=== PATIENT | male | born 1990 | race African-American/Black ===

== ENCOUNTER 2022-05-27 10:41 | Emergency (ER) | payer BC, SELFPAY ==
[2022-05-27] MEDS ORDERED: ONDANSETRON 4 MG/2 ML VIAL ONE (11:16)
[2022-05-27 11:17] LABS: Absolute Lymphocytes (CBC) 2.5 K/uL (0.7-4.9); Hematocrit 49.4 % (39.6-49.0); Lymphocytes % 18.9 % (15.3-44.8); RBC Red Blood Cell Count 5.43 M/uL (4.33-5.43)
[2022-05-27] MEDS ORDERED: INSULIN -REGULAR HUMAN 50 UNIT/0.5 ML ML ONE (11:17)
[2022-05-27] MEDS ORDERED: NA CHLORIDE 0.9% 1,000 ML ONE ×2 (11:17→12:35)
[2022-05-27 11:35] LABS: Albumin 4.3 g/dL (3.4-5.0); Bilirubin Total 1.4 mg/dL (0.2-1.0); Potassium 3.5 mmol/L (3.5-5.1); Protein, Total 8.5 g/dL (6.4-8.2)
[2022-05-27 14:23] LABS: Urine Blood Trace-intact (Negative); Urine Glucose 2+ (Negative); Urine Protein 2+ (Negative); Urine Specific Gravity >=1.030 (1.005-1.030); Urine pH 6.5 (5.0-7.0)
[2022-05-27 16:17] LABS: Potassium 3.6 mmol/L (3.5-5.1)
--- NOTE | 2022-05-27 16:41 | EDPHYS ---
Physician Documentation [facility] Name: Cecile Miranda Age: 32 yrs Sex: Male : 1990 Arrival Date: 05/27/2022 Time: 10:41 Bed 18 Private MD: ED Physician Sanju Zelaya HPI: 05/27 10:53 This 32 yrs old Black Male presents to ER via Ambulatory with complaints of Vomiting, jmm High Blood Sugar. 10:53 The patient presents to the emergency department with nausea, vomiting. Onset: The jmm symptoms/episode began/occurred gradually, 3 day(s) ago. Is a 32-year-old male with history of diabetes mellitus that presents emerged part with complaints of nausea and vomiting beginning approximately 3 days ago. Patient states he has had difficulty keeping his blood sugar under control due to inability to swallow pills. Denies any fever, abdominal pain, diarrhea.. Historical: - Allergies: 11:03 No Known Allergies; aa5 - PMHx: 11:03 Diabetes mellitus; aa5 - Immunization history:: Adult Immunizations unknown. - Social history:: Smoking status: Patient denies any tobacco usage or history of. ROS: 10:53 Constitutional: Negative for fever, chills, and weight loss, Cardiovascular: Negative jmm for chest pain, palpitations, and edema, Respiratory: Negative for shortness of breath, cough, wheezing, and pleuritic chest pain. 10:53 Abdomen/GI: Positive for nausea and vomiting. 10:53 All other systems are negative. Exam: 10:53 Constitutional: This is a well developed, well nourished patient who is awake, alert, jmm and in no acute distress. Head/Face: atraumatic. Eyes: EOMI, no conjunctival erythema appreciated ENT: Moist Mucus Membranes Neck: Trachea midline, Supple Chest/axilla: Normal chest wall appearance and motion. Cardiovascular: Regular rate and rhythm. No edema appreciated Respiratory: Normal respirations, no respiratory distress appreciated Abdomen/GI: Non distended Back: Normal ROM Skin: General appearance color normal MS/ Extremity: Moves all extremities, no obvious deformities appreciated, no edema noted to the lower extremities Neuro: Awake and alert Psych: Behavior is normal, Mood is normal, Patient is cooperative and pleasant Vital Signs: 10:52 BP 122 / 72; Pulse 86; Resp 16 S; Temp 98.0(TE); Pulse Ox 97% on R/A; aa5 11:45 BP 135 / 95; Pulse 68; Pulse Ox 96% on R/A; ap3 12:30 BP 123 / 87; Pulse 64; Resp 18; Pulse Ox 95% on R/A; kr3 13:30 BP 112 / 77; Pulse 64; Resp 18; Pulse Ox 98% on R/A; kr3 14:30 BP 107 / 75; Pulse 55; Resp 18; Pulse Ox 98% on R/A; kr3 15:30 BP 121 / 57; Pulse 71; Resp 18; Pulse Ox 95% on R/A; kr3 16:30 BP 129 / 81; Pulse 68; Resp 18; Pulse Ox 97% on R/A; kr3 MDM: 10:53 Patient medically screened. [facility] 16:35 Data reviewed: vital signs, nurses notes. [facility] 16:37 Counseling: I had a detailed discussion with the patient and/or guardian regarding: the [facility] historical points, exam findings, and any diagnostic results supporting the discharge/admit diagnosis. 18:17 I considered the following discharge prescriptions or medication management in the [facility] emergency department Medications were administered in the Emergency Department. See MAR. Historians other than the Patient:. Care significantly affected by the following chronic conditions: Diabetes. Counseling: I had a detailed discussion with the patient and/or guardian regarding: lab results, the need for outpatient follow up, to return to the emergency department if symptoms worsen or persist or if there are any questions or concerns that arise at home. ED course: Patient given insulin and IV fluids in the ED. Patient states feeling much better. Patient was advised to establish self with her primary care provider and otherwise given strict return precautions. Patient understood and agrees plan of care. 05/27 11:03 Order name: CBC with Diff [facility] 05/27 11:03 Order name: CMP [facility] 05/27 11:12 Order name: Glucose, Ancillary Testing; Complete Time: 11: [facility] 05/27 11:19 Order name: CBC with Automated Diff; Complete Time: 11: [facility] 05/27 11:35 Order name: Comprehensive Metabolic Panel; Complete Time: 11:38 [facility] 05/27 13:14 Order name: BMP: Repeat after IVF [facility] 05/27 11:03 Order name: Saline Lock; Complete Time: 11:06 [facility] 05/27 11:39 Order name: Urine Dipstick-Ancillary (obtain specimen); Complete Time: 14:25 [facility] 05/27 14:23 Order name: Urine Dipstick-Ancillary; Complete Time: 14:33 [facility] 05/27 16:23 Order name: Basic Metabolic Panel; Complete Time: 16:28 EDMS Administered Medications: 11:19 Drug: NS 0.9% 1000 ml Route: IV; Rate: 1 bolus; Site: right antecubital; ap3 16:57 Follow up: Response: No adverse reaction; IV Status: Completed infusion; IV Intake: kr3 1000ml 11:19 Drug: Zofran (Ondansetron) 4 mg Route: IVP; Site: right antecubital; ap3 16:57 Follow up: Response: No adverse reaction 3 11:30 Drug: Insulin Regular Human 10 units {Co-Signature: shasta1 (Loly Darling RN).} Route: ap3 IVP; Site: right antecubital; 16:57 Follow up: Response: No adverse reaction 3 12:33 Drug: NS 0.9% 1000 ml Route: IV; Rate: 1 bolus; Site: right antecubital; kr3 16:56 Follow up: Response: No adverse reaction; IV Status: Completed infusion; IV Intake: kr3 1000ml Disposition Summary: 05/27/22 16:40 Discharge Ordered Location: Home [facility] Condition: Stable [facility] Diagnosis - Hyperglycemia, unspecified [facility] Followup: [facility] - With: Private Physician - When: 2 - 3 days - Reason: Recheck today's complaints, Continuance of care, Re-evaluation by your physician Discharge Instructions: - Discharge Summary Sheet [facility] - Hyperglycemia [facility] Forms: - Medication Reconciliation Form [facility] - Thank You Letter [facility] - Antibiotic Education [facility] - Prescription Opioid Use [facility] - Work release form kr3 Prescriptions: - ondansetron 4 mg Oral tablet,disintegrating - place 1 tablet by TRANSLINGUAL route every 4-6 hours As needed; 20 tablet; [facility] Refills: 0, Product Selection Permitted - Metformin 500 mg Oral Tablet - take 1 tablet by ORAL route once daily for 7 days Then take 1 tablet with [facility] morning meals AND evening meals; 21 tablet; Refills: 0, Product Selection Permitted Addendum: 05/28/2022 19:53 Co-signature as Attending Physician, Sanju Zelaya MD I reviewed the patient's care r n provided by the Advanced Practice Provider and agree with the diagnosis and treatment plan. Signatures: Dispatcher [employer] Margarito Ramirez PA PA jmm Nieto, Roman, MD MD rn Calderon, Audri RN RN aa5 Sandra Nieto RN RN ap3 Elda Alicea RN RN kr3 Loly Darling RN ld1
--- NOTE | 2022-05-27 16:41 | ER ---
Nurse's Notes [facility] Name: Cecile Miranda Age: 32 yrs Sex: Male : 1990 Arrival Date: 05/27/2022 Time: 10:41 Bed 18 Private MD: Diagnosis: Hyperglycemia, unspecified Presentation: 05/27 10:52 Acuity: CARLOS 2 aa5 10:52 Chief complaint: Patient states: vomiting and "unable to keep anything down" x 3 days. aa5 Coronavirus screen: At this time, the client does not indicate any symptoms associated with coronavirus-19. Ebola Screen: Patient denies travel to an Ebola-affected area in the 21 days before illness onset. Initial Sepsis Screen: Does the patient meet any 2 criteria? No. Patient's initial sepsis screen is negative. Does the patient have a suspected source of infection? No. Patient's initial sepsis screen is negative. Risk Assessment: Do you want to hurt yourself or someone else? Patient reports no desire to harm self or others. Onset of symptoms was May 2022. 10:52 Method Of Arrival: Ambulatory aa5 Triage Assessment: 11:45 General: Appears uncomfortable, Behavior is cooperative. Pain: Denies pain. Neuro: ap3 Level of Consciousness is awake, alert, obeys commands, Oriented to person, place, time, situation. Cardiovascular: Patient's skin is warm and dry. Respiratory: Airway is patent Respiratory effort is even, unlabored, Respiratory pattern is regular, symmetrical. GI: Reports nausea, vomiting. Historical: - Allergies: 11:03 No Known Allergies; aa5 - PMHx: 11:03 Diabetes mellitus; aa5 - Immunization history:: Adult Immunizations unknown. - Social history:: Smoking status: Patient denies any tobacco usage or history of. Screenin:45 [facility] ED Fall Risk Assessment (Adult) History of falling in the last 3 months, ap3 including since admission No falls in past 3 months (0 pts). Abuse screen: Denies threats or abuse. Nutritional screening: No deficits noted. Tuberculosis screening: No symptoms or risk factors identified. Assessment: 12:15 General: Appears in no apparent distress. comfortable, Behavior is calm, cooperative, kr3 appropriate for age. Pain: Denies pain. Neuro: Level of Consciousness is awake, alert, obeys commands, Oriented to person, place, time, situation. Cardiovascular: Patient's skin is warm and dry. Respiratory: Airway is patent Respiratory effort is even, unlabored. : No signs and/or symptoms were reported regarding the genitourinary system. EENT: No signs and/or symptoms were reported regarding the EENT system. Derm: No signs and/or symptoms reported regarding the dermatologic system. Musculoskeletal: No signs and/or symptoms reported regarding the musculoskeletal system. 13:30 Reassessment: Patient and/or family updated on plan of care and expected duration. Pain kr3 level reassessed. Patient is alert, oriented x 3, equal unlabored respirations, skin warm/dry/pink. 14:30 Reassessment: Patient and/or family updated on plan of care and expected duration. Pain kr3 level reassessed. Patient is alert, oriented x 3, equal unlabored respirations, skin warm/dry/pink. 15:30 Reassessment: Patient appears in no apparent distress at this time. Patient and/or kr3 family updated on plan of care and expected duration. Pain level reassessed. Patient is alert, oriented x 3, equal unlabored respirations, skin warm/dry/pink. 16:30 Reassessment: Patient appears in no apparent distress at this time. Patient and/or kr3 family updated on plan of care and expected duration. Pain level reassessed. Patient is alert, oriented x 3, equal unlabored respirations, skin warm/dry/pink. Vital Signs: 10:52 BP 122 / 72; Pulse 86; Resp 16 S; Temp 98.0(TE); Pulse Ox 97% on R/A; aa5 11:45 BP 135 / 95; Pulse 68; Pulse Ox 96% on R/A; ap3 12:30 BP 123 / 87; Pulse 64; Resp 18; Pulse Ox 95% on R/A; kr3 13:30 BP 112 / 77; Pulse 64; Resp 18; Pulse Ox 98% on R/A; kr3 14:30 BP 107 / 75; Pulse 55; Resp 18; Pulse Ox 98% on R/A; kr3 15:30 BP 121 / 57; Pulse 71; Resp 18; Pulse Ox 95% on R/A; kr3 16:30 BP 129 / 81; Pulse 68; Resp 18; Pulse Ox 97% on R/A; kr3 ED Course: 10:41 Patient arrived in ED. rg4 10:42 Margarito Starks PA is PHCP. jmm 10:42 Sanju Zelaya MD is Attending Physician. jmm 10:52 Arm band placed on. aa5 11:02 Triage completed. aa5 11:06 Snadra Nieto, SALMA is Primary Nurse. ap3 11:13 CMP Sent. ap3 11:13 CBC with Diff Sent. ap3 11:46 Patient has correct armband on for positive identification. Bed in low position. Call ap3 light in reach. Side rails up X 1. Pulse ox on. NIBP on. Door closed. Noise minimized. Warm blanket given. 16:57 BMP: Repeat after IVF Sent. kr3 16:57 No provider procedures requiring assistance completed. IV discontinued, intact, kr3 bleeding controlled, No redness/swelling at site. Pressure dressing applied. Administered Medications: 11:19 Drug: NS 0.9% 1000 ml Route: IV; Rate: 1 bolus; Site: right antecubital; ap3 16:57 Follow up: Response: No adverse reaction; IV Status: Completed infusion; IV Intake: kr3 1000ml 11:19 Drug: Zofran (Ondansetron) 4 mg Route: IVP; Site: right antecubital; ap3 16:57 Follow up: Response: No adverse reaction kr3 11:30 Drug: Insulin Regular Human 10 units {Co-Signature: ld1 (Loly Darling RN).} Route: ap3 IVP; Site: right antecubital; 16:57 Follow up: Response: No adverse reaction kr3 12:33 Drug: NS 0.9% 1000 ml Route: IV; Rate: 1 bolus; Site: right antecubital; kr3 16:56 Follow up: Response: No adverse reaction; IV Status: Completed infusion; IV Intake: kr3 1000ml Medication: 11:46 VIS not applicable for this client. ap3 Intake: 16:56 IV: 1000ml; Total: 1000ml. kr3 16:57 IV: 1000ml; Total: 2000ml. kr3 Outcome: 16:40 Discharge ordered by . jmm 16:56 Patient left the ED. kr3 16:58 Discharged to home ambulatory. kr3 16:58 Condition: stable 16:58 Discharge instructions given to patient, Instructed on discharge instructions, follow up and referral plans. medication usage, Demonstrated understanding of instructions, follow-up care, medications, Prescriptions given X 2. Signatures: Margarito Starks PA PA jmm Calderon, Audri, RN RN [email or web address] Annie Lim4 Sandra Nieto RN RN ap3 Elda Alicea RN RN kr3 Loly Darling RN ld1 Corrections: (The following items were deleted from the chart) 16:42 16:42 Reassessment: Patient appears in no apparent distress at this time. Patient kr3 and/or family updated on plan of care and expected duration. Pain level reassessed. Patient is alert, oriented x 3, equal unlabored respirations, skin warm/dry/pink. kr3
[2022-05-27 17:09] VITALS: TEMP 98
[2022-05-27 17:16] VITALS: BP 129/81; O2SAT 97
== END 2022-05-27 16:56 | disposition home or self-care (01) ==
LOC: ER 10:41
DX: E11.65 Type 2 diabetes mellitus with hyperglycemia (principal)
CPT/HCPCS: 36415; 80048; 80053; 81003; 82947; 85025; J1815; J2405; J7030

== ENCOUNTER 2022-05-31 20:58 | Inpatient (IN) | payer SELFPAY ==
[2022-05-31] MEDS ORDERED: NA CHLORIDE 0.9% 0 ML ONE (21:49)
[2022-05-31 22:15] LABS: Absolute Lymphocytes (CBC) 2.4 K/uL (0.7-4.9); Hematocrit 53.5 % (39.6-49.0); Lymphocytes % 23.4 % (15.3-44.8); MCV 88.9 fL (80-100); RBC Red Blood Cell Count 6.02 M/uL (4.33-5.43)
[2022-05-31 22:40] LABS: ALT/SGPT 18 U/L (16-61); AST/SGOT 8 U/L (15-37); Alkaline Phosphatase 92 U/L (45-117); BUN Blood Urea Nitrogen 28 mg/dL (7-18); Bicarbonate 26 mmol/L (21-32); Glomerular Filtration Rate 85 ml/min (=/>90); Glucose Level 325 mg/dL (74-106); Potassium 3.3 mmol/L (3.5-5.1); Protein, Total 8.2 g/dL (6.4-8.2); Sodium Level 127 mmol/L (136-145)
[2022-05-31] MEDS ORDERED: NA CHLORIDE 0.9% 1,000 ML ONE (23:07)
[2022-05-31 23:10] LABS: SARS-COV-2 RT PCR NEGATIVE (NEGATIVE)
[2022-05-31] MEDS ORDERED: NS KCL 20MEQ 1,000 ML IV ONE (23:17)
--- NOTE | 2022-05-31 23:35 | ER ---
Nurse's Notes [facility] Name: Cecile Miranda Age: 32 yrs Sex: Male : 1990 Arrival Date: 05/31/2022 Time: 21:01 Bed 19 Private MD: Diagnosis: Diabetes mellitus due to underlying condition with ketoacidosis without coma Presentation: 05/31 21:21 Acuity: CARLOS 3 ll3 21:21 Chief complaint: Patient states: C/o N/V and high blood sugar since last Thursday, ll3 states BG was [employer]. Coronavirus screen: Vaccine status: Patient reports being unvaccinated. nausea, vomiting. Ebola Screen: No symptoms or risks identified at this time. Initial Sepsis Screen: Does the patient meet any 2 criteria? No. Patient's initial sepsis screen is negative. Does the patient have a suspected source of infection? No. Patient's initial sepsis screen is negative. Risk Assessment: Do you want to hurt yourself or someone else? Patient reports no desire to harm self or others. Onset of symptoms was May 24, 2022. Care prior to arrival: Medication(s) given: zofran. 21:21 Method Of Arrival: Wheelchair ll3 Triage Assessment: 06/01 00:00 General: Appears. ha1 Historical: - Allergies: 05/31 21:21 No Known Allergies; ll3 - Home Meds: 21:21 None [Active]; ll3 - PMHx: 21:21 diabetes mellitus; ll3 - PSHx: 21:21 None; ll3 - Immunization history:: Client reports having NOT received the Covid vaccine. - Social history:: Smoking status: Patient denies any tobacco usage or history of. Screenin:14 [facility] ED Fall Risk Assessment (Adult) History of falling in the last 3 months, ha1 including since admission No falls in past 3 months (0 pts) Confusion or Disorientation No (0 pts) Intoxicated or Sedated No (0 pts) Impaired Gait No (0 pts) Mobility Assist Device Used No (0 pt) Altered Elimination No (0 pt). 22:43 Abuse screen: Denies threats or abuse. Denies injuries from another. Nutritional ha1 screening: No deficits noted. Tuberculosis screening: No symptoms or risk factors identified. Assessment: 21:14 General: Appears uncomfortable, Behavior is calm, cooperative. Pain: Complains of pain ha1 in abdomen Pain does not radiate. Pain at worst was 9 out of 10 on a pain scale. Quality of pain is described as crampy. Neuro: Level of Consciousness is awake, alert, obeys commands, Oriented to person, place, time, situation. Cardiovascular: Patient's skin is warm and dry. Respiratory: Airway is patent Respiratory effort is even, unlabored, Respiratory pattern is regular, symmetrical. GI: Abdomen is flat, non-distended, Bowel sounds present X 4 quads. Reports lower abdominal pain, nausea, vomiting. 22:00 Reassessment: Patient and/or family updated on plan of care and expected duration. Pain ha1 level reassessed. Patient is alert, oriented x 3, equal unlabored respirations, skin warm/dry/pink. 22:40 Reassessment: Patient and/or family updated on plan of care and expected duration. Pain ha1 level reassessed. Patient is alert, oriented x 3, equal unlabored respirations, skin warm/dry/pink. Patient states feeling better. Patient states symptoms have improved. 23:40 Reassessment: Patient and/or family updated on plan of care and expected duration. Pain ha1 level reassessed. Patient is alert, oriented x 3, equal unlabored respirations, skin warm/dry/pink. Vital Signs: 21:21 BP 141 / 95; Pulse 71; Resp 18; Temp 98.7(O); Pulse Ox 97% on R/A; Weight 90.72 kg (R); ll3 Height 5 ft. 8 in. (172.72 cm); Pain 0/10; 22:00 BP 123 / 90; Pulse 72; Resp 15; Pulse Ox 100% ; ha1 22:40 BP 133 / 80; Pulse 60; Resp 16 S; Pulse Ox 100% on R/A; ha1 23:57 BP 138 / 103; Pulse 74; Resp 18 S; Temp 98.4; Pulse Ox 100% on R/A; ha1 21:21 Body Mass Index 30.41 (90.72 kg, 172.72 cm) ll3 ED Course: 21:01 Patient arrived in ED. ja2 21:09 Keila Colon FNP-C [facility]. snw 21:09 Grupo Benavides MD is Attending Physician. snw 21:21 Arm band placed on Patient placed in an exam room, on a stretcher, on pulse oximetry. ll3 21:21 Allergy band placed. Placed in gown. Bed in low position. Call light in reach. Side ha1 rails up X 1. 21:36 Triage completed. ll3 21:39 Carole Kim RN is Primary Nurse. ha1 21:50 Missed attempt(s): 20 gauge in right antecubital area. ha1 22:00 No provider procedures requiring assistance completed. Inserted saline lock: 22 gauge ha1 in left wrist, using aseptic technique. 23:34 Lemuel Burkett MD is Hospitalizing Provider. snw 23:42 Easton Duarte is Hospitalizing Provider. sb4 06/01 00:20 Patient admitted, IV remains in place. ha1 Administered Medications: 05/31 22:15 Drug: NS 0.9% 1000 ml Route: IV; Rate: 1 bolus; Site: left forearm; ha1 23:04 CANCELLED (Physician Discretion): NS 0.9% 1000 ml IV at 1 bolus Per protocol; 1000 mL snw bolus 23:15 Drug: NS 0.9% with KCl 20 mEq/L 1000 ml Route: IV; Rate: 999 ml/hr; Site: left forearm; ha1 23:50 Drug: Insulin Regular Human 5 units {Co-Signature: eh3 (Emperatriz Alonso RN).} Route: IVP; ha1 Site: left forearm; Medication: 06/01 00:21 VIS not applicable for this client. ha1 Outcome: 05/31 23:35 Decision to Hospitalize by Provider. snw 06/01 00:20 Admitted to ICU accompanied by nurse, room 7, with chart, Report called to SALMA Stewart ha1 Condition: stable 01:00 Patient left the ED. ha1 Signatures: Keila Colon, RADHA-C RESIDENTIAL PEST CONTROL TECHNICIAN-Halima Vargas Lynsea RN RN 3 Carole Kim RN RN [email or web address] Rebecca Negron, PAEduard PAEduard 4 Emperatriz Alonso RN eh3 Corrections: (The following items were deleted from the chart) 05/31 21:37 21:34 Chief complaint: Patient states: C/o N/V and high blood sugar since last ll3 Thursday, states BG was [employer] ll3 21:37 21:34 Coronavirus screen: Vaccine status: Patient reports being unvaccinated. nausea, ll3 vomiting. ll3 21:37 21:34 Ebola Screen: No symptoms or risks identified at this time. ll3 ll3 21:37 21:34 Initial Sepsis Screen: Does the patient meet any 2 criteria? No. Patient's ll3 initial sepsis screen is negative. Does the patient have a suspected source of infection? No. Patient's initial sepsis screen is negative. ll3 21:37 21:34 Risk Assessment: Do you want to hurt yourself or someone else? Patient reports no ll3 desire to harm self or others. ll3 21:37 21:34 Onset of symptoms was May 24, 2022 ll3 ll3 21:37 21:34 Care prior to arrival: Medication(s) given: zofran ll3 ll3 21:37 21:34 Method Of Arrival: Wheelchair ll3 ll3 21:37 21:34 BP 141 / 95; Pulse 71bpm; Resp 18bpm; Pulse Ox 97% RA; Temp 98.7F Oral; 90.72 kg ll3 Reported; Height 5 ft. 8 in.; BMI: 30.4; Pain 0/10; ll3 21:37 21:34 Acuity: CARLOS 3 ll3 ll3 06/01 00:04 05/31 22:40 Reassessment: Patient and/or family updated on plan of care and expected ha1 duration. Pain level reassessed. Patient is alert, oriented x 3, equal unlabored respirations, skin warm/dry/pink. ha1
--- NOTE | 2022-05-31 23:35 | EDPHYS ---
Physician Documentation [facility] Name: Cecile Miranda Age: 32 yrs Sex: Male : 1990 Arrival Date: 05/31/2022 Time: 21:01 Bed 19 Private MD: ED Physician Grupo Benavides HPI: 05/31 23:32 This 32 yrs old Black Male presents to ER via Wheelchair with complaints of Vomiting, snw High Blood Sugar. 23:32 The patient presents to the emergency department with nausea, vomiting. Onset: The snw symptoms/episode began/occurred suddenly, 1 week(s) ago, and became worse and became persistent. Possible causes: untreated/undertreated DM. The symptoms are aggravated by nothing. The symptoms are alleviated by nothing. Associated signs and symptoms: Pertinent positives: nausea, vomiting. Severity of symptoms: At their worst the symptoms were severe in the emergency department the symptoms are unchanged. The patient has experienced similar episodes in the past. The patient has been recently seen by a physician: The patient has been recently seen at the [facility], this week. Historical: - Allergies: 21:21 No Known Allergies; ll3 - Home Meds: 21:21 None [Active]; ll3 - PMHx: 21:21 diabetes mellitus; ll3 - PSHx: 21:21 None; ll3 - Immunization history:: Client reports having NOT received the Covid vaccine. - Social history:: Smoking status: Patient denies any tobacco usage or history of. ROS: 23:32 Eyes: Negative for injury, pain, redness, and discharge, ENT: Negative for injury, snw pain, and discharge, Neck: Negative for injury, pain, and swelling, Cardiovascular: Negative for chest pain, palpitations, and edema, Respiratory: Negative for shortness of breath, cough, wheezing, and pleuritic chest pain. 23:32 Back: Negative for injury and pain, : Negative for injury, bleeding, discharge, and swelling, MS/Extremity: Negative for injury and deformity, Skin: Negative for injury, rash, and discoloration. 23:32 Constitutional: Positive for body aches, fatigue, malaise, poor PO intake. 23:32 Abdomen/GI: Positive for vomiting. 23:32 Neuro: Positive for tingling, weakness. Exam: 23:01 Head/Face: Normocephalic, atraumatic. Eyes: Pupils equal round and reactive to light, snw extra-ocular motions intact. Lids and lashes normal. Conjunctiva and sclera are non-icteric and not injected. Cornea within normal limits. Periorbital areas with no swelling, redness, or edema. Neck: Trachea midline, no thyromegaly or masses palpated, and no cervical lymphadenopathy. Supple, full range of motion without nuchal rigidity, or vertebral point tenderness. No Meningismus. Chest/axilla: Normal chest wall appearance and motion. Nontender with no deformity. No lesions are appreciated. Cardiovascular: Regular rate and rhythm with a normal S1 and S2. No gallops, murmurs, or rubs. Normal PMI, no JVD. No pulse deficits. Respiratory: Lungs have equal breath sounds bilaterally, clear to auscultation and percussion. No rales, rhonchi or wheezes noted. No increased work of breathing, no retractions or nasal flaring. Abdomen/GI: Soft, non-tender, with normal bowel sounds. No distension or tympany. No guarding or rebound. No evidence of tenderness throughout. Back: No spinal tenderness. No costovertebral tenderness. Full range of motion. 23:01 Constitutional: The patient appears listless, in obvious pain, uncomfortable. 23:01 Skin: Appearance: Color: normal in color, Moisture: dry. Vital Signs: 21:21 BP 141 / 95; Pulse 71; Resp 18; Temp 98.7(O); Pulse Ox 97% on R/A; Weight 90.72 kg (R); ll3 Height 5 ft. 8 in. (172.72 cm); Pain 0/10; 22:00 BP 123 / 90; Pulse 72; Resp 15; Pulse Ox 100% ; ha1 22:40 BP 133 / 80; Pulse 60; Resp 16 S; Pulse Ox 100% on R/A; ha1 23:57 BP 138 / 103; Pulse 74; Resp 18 S; Temp 98.4; Pulse Ox 100% on R/A; ha1 21:21 Body Mass Index 30.41 (90.72 kg, 172.72 cm) ll3 MDM: 21:11 Patient medically screened. snw 23:23 Differential diagnosis: gastritis, diabetic ketoacidosis. Data reviewed: vital signs, snw nurses notes, lab test result(s). Management of patient was discussed with the following: Hospitalist: Precious Bonilla. Historians other than the Patient: Spouse/Significant Other: Spouse. Counseling: I had a detailed discussion with the patient and/or guardian regarding: the historical points, exam findings, and any diagnostic results supporting the discharge/admit diagnosis, the presence of at least one elevated blood pressure reading (>120/80) during this emergency department visit, lab results, the need for further work-up and treatment in the hospital. ED course: Pt to begin insulin drip, D5 1/2NS when FSBS 250mg/dl, chem 7 q 4h, stop insulin drip when gap closed. 05/31 21:38 Order name: Glucose, Ancillary Testing; Complete Time: 21:38 EDMS 05/31 21:39 Order name: CBC with Diff snw 05/31 21:39 Order name: CMP snw 05/31 21:39 Order name: Blood Culture Adult (2) snw 05/31 21:39 Order name: Acetone, Serum snw 05/31 21:56 Order name: COVID-19/FLU A+B snw 05/31 21:56 Order name: Lactate w/ 2H reflex if indic. snw 05/31 21:56 Order name: CPK snw 05/31 22:17 Order name: CBC with Automated Diff; Complete Time: 22:30 EDMS 05/31 22:25 Order name: Acetone Level; Complete Time: 22:59 EDMS 05/31 22:37 Order name: Creatine Phosphokinase; Complete Time: 22:38 EDMS 05/31 22:40 Order name: Comprehensive Metabolic Panel; Complete Time: 22:59 EDMS 05/31 22:55 Order name: Lactate w/ 2H reflex if indic.; Complete Time: 22:59 EDMS 05/31 23:10 Order name: COVID-19/FLU A+B; Complete Time: 23:12 EDMS 05/31 23:21 Order name: Glucose, Ancillary Testing; Complete Time: 23:21 EDMS 06/01 00:47 Order name: Glucose, Ancillary Testing; Complete Time: 00:49 EDMS Administered Medications: 22:15 Drug: NS 0.9% 1000 ml Route: IV; Rate: 1 bolus; Site: left forearm; ha1 23:04 CANCELLED (Physician Discretion): NS 0.9% 1000 ml IV at 1 bolus Per protocol; 1000 mL snw bolus 23:15 Drug: NS 0.9% with KCl 20 mEq/L 1000 ml Route: IV; Rate: 999 ml/hr; Site: left forearm; ha1 23:50 Drug: Insulin Regular Human 5 units {Co-Signature: eh3 (Emperatriz Alonso RN).} Route: IVP; ha1 Site: left forearm; Disposition Summary: 05/31/22 23:35 Hospitalization Ordered Hospitalization Status: Inpatient Admission snw Location: Intensive Care Unit snw Condition: Stable snw Problem: an acute exacerbation snw Symptoms: have worsened snw Bed/Room Type: Standard snw Provider: Easton Duarte(05/31/22 23:42) sb4 Room Assignment: -(05/31/22 23:53) mw Diagnosis - Diabetes mellitus due to underlying condition with ketoacidosis without coma snw Forms: - Medication Reconciliation Form snw - SBAR form snw Signatures: Dispatcher [employer] EDMS Frances Bhardwaj RN RN Keila Colon, VAULT MANAGER-C VAULT MANAGER-Csnw Nydia Tellez RN RN 3 Carole Kim RN RN ha1 Rebecca Negron, PA-C PA-C sb4 Emperatriz Alonso RN eh3 Corrections: (The following items were deleted from the chart) 23:04 22:31 NS 0.9% 1000 ml IV at 1 bolus Per protocol; 1000 mL bolus ordered. snw snw 23:04 23:04 NS 0.9% 1000 ml IV at 1 bolus Per protocol; 1000 mL bolus ordered. snw snw 23:42 23:35 Lemuel Burkett snw sb4 23:53 23:35 snw mw
--- NOTE | 2022-05-31 23:42 | P.HP ---
Certification for Inpatient Patient admitted to: Inpatient With expected LOS: <2 Midnights Patient will require the following post-hospital care: None Practitioner: I am a practitioner with admitting privileges, knowledge of patient current condition, hospital course, and medical plan of care. Services: Services provided to patient in accordance with Admission requirements found in Title 42 Section 412.3 of the Code of Federal Regulations Patient History Date of Service: 05/31/22 Reason for admission: DKA History of Present Illness: Patient is a 32-year-old male with past medical history of type 1 diabetes who presents to the emergency department with complaints of nausea, vomiting, headache, and hyperglycemia. Patient was seen here 2 days ago for similar symptoms and discharged. He reports that he has not been taking insulin for quite some time due to insurance reasons and he has only been taking metformin. Today his labs are significant for hemoglobin 18.2, hematocrit 53.5, sodium 127, potassium 3.3, chloride 86, anion gap 18, BUN 28, glucose 325, moderate acetone. Vital signs stable. Patient is admitted for further management of DKA. Home medications list reviewed: Yes - Past Medical/Surgical History Diabetic: Yes -: Type 1 Diabetes Past Surgical History: Patient denies surgical history Psychosocial/ Personal History: Patient is . - Family History Family History: Reviewed- Non-Contributory - Social History Smoking Status: Never smoker Alcohol use: No CD- Drugs: No Caffeine use: Yes Place of Residence: Home Review of Systems Gastrointestinal: Nausea, Vomiting, Abdominal Pain Physical Examination - Vital Signs Temperature: 98.7 F Blood Pressure: 133/80 Pulse: 60 Respirations: 16 Pulse Ox (%): 100 - Physical Exam General: Alert, In no apparent distress HEENT: Atraumatic, EOMI, Sclerae nonicteric Neck: Supple, 2+ carotid pulse no bruit Respiratory: Clear to auscultation bilaterally, Normal air movement Cardiovascular: Regular rate/rhythm, Normal S1 S2 Gastrointestinal: Normal bowel sounds, No tenderness Musculoskeletal: No tenderness Integumentary: No rashes Neurological: Normal speech, Normal affect - Studies Laboratory Data (last 24 hrs) 05/31/22 22:02: Sodium 127 L, Potassium 3.3 L, BUN 28 H, Creatinine 1.17, Glucose 325 H, Total Bilirubin 1.0, AST 8 L, ALT 18, Alkaline Phosphatase 92 05/31/22 22:00: WBC 10.20, Hgb 18.2 H, Hct 53.5 H, Plt Count 255 Assessment and Plan - Problems (Diagnosis) (1) DKA (diabetic ketoacidosis) Current Visit: Yes Status: Acute Qualifiers: Diabetes mellitus type: type 1 Diabetes mellitus complication detail: without coma Qualified Code(s): E10.10 - Type 1 diabetes mellitus with ketoacidosis without coma - Plan Patient admitted to ICU for further management of DKA. Continue insulin drip and aggressive IV fluids. Every 4 hours BMPs and acetone level. Check lipid panel and A1c in the morning. Nephrology consult. Diabetic education consult. Case management consult for insulin on dispo. Monitor and replete electrolytes per protocol. Reconcile and continue home medications. Lovenox for VTE prophylaxis. Full code. Discharge Plan: Home Plan to discharge in: 48 Hours - Advance Directives Does patient have a Living Will: No Does patient have a Durable POA for Healthcare: No - Code Status/Comfort Care Code Status Assessed: Yes Code Status: Full Code Physician Review: Patient Assessed, Agree with Above Assessment and Plan Critical Care: No Time Spent Managing Pts Care (In Minutes): 50
[2022-05-31] MEDS ORDERED: INSULIN -REGULAR HUMAN 50 UNIT/0.5 ML ML ONE (23:53)
[2022-06-01] MEDS ORDERED: INSULIN -REGULAR HUMAN 100 UNIT in NA CHLORIDE 0.9% 100 ML IV SCH (00:14)
[2022-06-01] MEDS ORDERED: ONDANSETRON 4 MG/2 ML VIAL IV PRN (00:14)
[2022-06-01] MEDS: D5.45NS W/KCL 20MEQ 1,000 ML IV SCH ×2 (00:14→02:02)
[2022-06-01] MEDS ORDERED: ACETAMINOPHEN 500 MG TAB PO PRN (01:03)
[2022-06-01] MEDS: NACHLORIDE 0.45% 1,000 ML with POTASSIUM CL 20 MEQ IV SCH ×4 (01:12→04:17)
[2022-06-01] MEDS ORDERED: NACHLORIDE 0.45% 1,000 ML IV ONE (01:14)
[2022-06-01 01:17] VITALS: O2SAT 100
[2022-06-01] MEDS ORDERED: KCL 20 MEQ/100 mL IVPB 100 ML IV ONE (01:17)
[2022-06-01 01:31] VITALS: BMI 30.4
[2022-06-01 02:41] LABS: BUN Blood Urea Nitrogen 24 mg/dL (7-18); Bicarbonate 31 mmol/L (21-32); Glomerular Filtration Rate 83 ml/min (=/>90); Glucose Level 186 mg/dL (74-106); Potassium 3.8 mmol/L (3.5-5.1); Sodium Level 133 mmol/L (136-145)
[2022-06-01 06:39] LABS: Hematocrit 41.3 % (39.6-49.0); Lymphocytes % 32.5 % (15.3-44.8); MCV 87.5 fL (80-100); MPV 8.3 fL (7.6-11.3); RBC Red Blood Cell Count 4.72 M/uL (4.33-5.43)
[2022-06-01 06:54] LABS: Magnesium 2.1 mg/dL (1.6-2.4); Phosphorus 2.9 mg/dL (2.5-4.9)
[2022-06-01 06:57] LABS: BUN Blood Urea Nitrogen 21 mg/dL (7-18); Bicarbonate 31 mmol/L (21-32); Glomerular Filtration Rate 102 ml/min (=/>90); Glucose Level 183 mg/dL (74-106); Potassium 3.2 mmol/L (3.5-5.1); Sodium Level 132 mmol/L (136-145)
[2022-06-01] MEDS ORDERED: GLUCAGON 1 MG/VIAL IM PRN ×2 (08:48→09:56)
[2022-06-01] MEDS ORDERED: ENOXAPARIN 40 MG/0.4 ML SQ SCH (09:00)
[2022-06-01] MEDS ORDERED: D10W 250 ML BAG IV PRN (09:01)
[2022-06-01] MEDS: INSULIN -REGULAR HUMAN 50 UNIT/0.5 ML ML SQ SCH ×2 (09:07→11:54)
[2022-06-01] MEDS ORDERED: INSULIN 70/30 100 UNITS/ML SQ SCH (09:56)
[2022-06-01] MEDS ORDERED: D50W 25 GM/50 ML SYRINGE IV PRN (09:56)
[2022-06-01 10:41] LABS: BUN Blood Urea Nitrogen 19 mg/dL (7-18); Bicarbonate 32 mmol/L (21-32); Glomerular Filtration Rate 85 ml/min (=/>90); Glucose Level 220 mg/dL (74-106); Potassium 3.4 mmol/L (3.5-5.1); Sodium Level 132 mmol/L (136-145)
--- NOTE | 2022-06-01 11:07 | P.DS ---
Admission Date: 05/31/22 Discharge Date: 06/01/22 Disposition: ROUTINE DISCHARGE Discharge Condition: FAIR Reason for Admission: DKA - Problems (1) DKA (diabetic ketoacidosis) Status: Acute Qualifiers: Diabetes mellitus type: type 1 Diabetes mellitus complication detail: without coma Qualified Code(s): E10.10 - Type 1 diabetes mellitus with ketoacidosis without coma Brief History of Present Illness: Patient is a 32-year-old male with past medical history of type 2 diabetes who presents to the emergency department with complaints of nausea, vomiting, headache, and hyperglycemia. Patient was seen here 2 days prior for similar symptoms and discharged. He reports that he has not been taking insulin for quite some time due to insurance reasons and he has only been taking metformin. His labs were significant for hemoglobin 18.2, hematocrit 53.5, sodium 127, potassium 3.3, chloride 86, anion gap 18, BUN 28, glucose 325, moderate acetone. Vital signs stable. Patient was admitted for further management of DKA. Hospital Course: Patient started on DKA protocol with insulin drip and IV fluid and ICU. Patient anion gap closed quickly with insulin drip. DKA resolved, patient was started on a diet and Novolin 70/30 as well as aggressive insulin sliding scale. His hemoglobin A1c is 11. Given multiple ED visits for hyperglycemia and high hemoglobin A1c, outpatient insulin therapy will be more appropriate for his blood sugar control. Patient is prescribed Novolin 70/30 for affordability. He is informed he will need to monitor his blood sugar at least twice a day before he gives himself the insulin. Metformin is also continued on discharge. Vital Signs/Physical Exam: Temp Pulse Resp BP Pulse Ox 98.5 F 67 12 131/80 100 06/01/22 08:00 06/01/22 10:00 06/01/22 00:46 06/01/22 10:06/01/22 08:00 General: Alert, In no apparent distress, Oriented x3 HEENT: Mucous membr. moist/pink Neck: Supple, JVD not distended Respiratory: Clear to auscultation bilaterally, Normal air movement Cardiovascular: No edema, Regular rate/rhythm, Normal S1 S2 Gastrointestinal: Normal bowel sounds, Soft and benign, Non-distended Musculoskeletal: No swelling Integumentary: No erythema, No cyanosis Neurological: Normal strength at 5/5 x4 extr Laboratory Data at Discharge: WBC 9.20 K/uL (4.3-10.9) 06/01/22 06:04 Hgb 14.4 g/dL (13.6-17.9) D 06/01/22 06:04 Hct 41.3 % (39.6-49.0) 06/01/22 06:04 Plt Count 237 K/uL (152-406) 06/01/22 06:04 Sodium 132 mmol/L (136-145) L 06/01/22 10:10 Potassium 3.4 mmol/L (3.5-5.1) L 06/01/22 10:10 BUN 19 mg/dL (7-18) H 06/01/22 10:10 Creatinine 1.18 mg/dL (0.70-1.30) 06/01/22 10:10 Glucose 220 mg/dL (74-106) H 06/01/22 10:10 Phosphorus 2.9 mg/dL (2.5-4.9) 06/01/22 06:04 Magnesium 2.1 mg/dL (1.6-2.4) 06/01/22 06:04 Total Bilirubin 1.0 mg/dL (0.2-1.0) 05/31/22 22:02 AST 8 U/L (15-37) L 05/31/22 22:02 ALT 18 U/L (16-61) 05/31/22 22:02 Alkaline Phosphatase 92 U/L (45-117) 05/31/22 22:02 Triglycerides 107 mg/dL (<150) 06/01/22 06:04 Cholesterol 221 mg/dL (<200) H 06/01/22 06:04 HDL Cholesterol 28 mg/dL (40-60) L 06/01/22 06:04 Cholesterol/HDL Ratio 7.89 06/01/22 06:04 Home Medications: Alcohol Antiseptic Pads [Alcohol Prep Pads] 1 each BID #1 box 06/01/22 Blood Sugar Diagnostic [Blood Glucose Test] 1 each BID #30 strip 06/01/22 Blood-Glucose Meter [Blood Glucose Monitoring] 1 each BID #1 kit 06/01/22 Insulin 70/30 NPH/Reg Human [Novolin 70/30*] 20 unit SQ Q12H #15 ml 06/01/22 Lancets [Lancets Thin] 1 each MC BID #1 box 06/01/22 Metformin HCl [Glucophage*] 500 mg PO BIDWM 06/01/22 Pen Needle, Diabetic [Pen Needle] 1 each MC BID #1 box 06/01/22 New Medications: Alcohol Antiseptic Pads [Alcohol Prep Pads] 1 each BID #1 box Blood-Glucose Meter [Blood Glucose Monitoring] 1 each MC BID #1 kit Blood Sugar Diagnostic [Blood Glucose Test] 1 each MC BID #30 strip Lancets [Lancets Thin] 1 each MC BID #1 box Insulin 70/30 NPH/Reg Human [Novolin 70/30*] 20 unit SQ Q12H #15 ml Pen Needle, Diabetic [Pen Needle] 1 each MC BID #1 box Diet: ADA Activity: Ad becka Followup: NONE,NONE [Primary Care Provider] - Time spent managing pt's care (in minutes): 34
[2022-06-01 13:57] VITALS: BP 107/66; TEMP 98.4
== END 2022-06-01 14:15 | disposition home or self-care (01) | DRG 639 ==
LOC: ER 20:58 → ERHOLD 23:36 → 3RD-ICU 06-01 00:18
PROVIDERS: ADMIT Internal Medicine; ATTEND Internal Medicine
DX: E10.10 Type 1 diabetes mellitus with ketoacidosis without coma (principal); T38.3X6A Underdosing of insulin and oral hypoglycemic [antidiabetic] drugs, initial encounter; Z79.4 Long term (current) use of insulin; Z79.84 Long term (current) use of oral hypoglycemic drugs; Z91.14 Patient's other noncompliance with medication regimen; Z28.310 Unvaccinated for COVID-19; Z91.120 Patient's intentional underdosing of medication regimen due to financial hardship; Z79.899 Other long term (current) drug therapy; Z20.822 Contact with and (suspected) exposure to COVID-19
CPT/HCPCS: 0240U; 36415; 80048; 80053; 80061; 82010; 82310; 82550; 82947; 83036; 83605; 83735; 83930; 84100; 85025; 87040; 96374; 99285; J1650; J1815; J3480; J7030

== ENCOUNTER 2023-01-20 17:37 | Inpatient (IN) | payer OTHER, SELFPAY ==
--- OUTSIDE RECORDS SUMMARY | 2023-01-20 17:41 | XMS REPORT | Continuity of Care Document ---
:1990 Author Organization [facility] t Address [address] [place] [address] [place] [id number] Care Team Providers Name Role Phone ELLI QUEZADA JR Primary Care Physician Unavailable Cole Lagunas Attending Clinician Kathy Schulte Attending Clinician KATHY SCHULTE Attending Clinician Unavailable ALYSON DE LEÓN Attending Clinician Unavailable Alyson De León MD Attending Clinician REGAN CARRINGTON Attending Clinician Unavailable Regan Kovacs Attending Clinician ALYSON DE LEÓN Admitting Clinician Unavailable Payers Payer Name Policy Type Policy Number Effective Date Expiration Date [facility] [id number] 2022 CHOICE 00:00:00 Problems Condition Condition Condition Status Onset Resolution Last Treating Co mments Source Name Details Category Date Date Treatment Clinician Date NAUSEA NAUSEA Diagnosis Active 2022-042023-01-13 Me moria Active 12:56:00 l 01/13/2023 00:00: [facility] 00 Mike VOMITING VOMITING Diagnosis Active 2022-07-27 Memoria Active 07-27 13:32:00 l 07/27/2022 00:00: [facility] 00 [place] Past Past Problem Active 2023-01-16 Memor ia history of history of 00:08:24 l clinical clinical [facility] finding finding (context-d (context-d ependent ependent category) category) Active Problem 01/16/2023 [facility] Hyperglyce Hyperglyc Problem Active 2023-01-16 Memoria dali emia 00:08:24 l (disorder) (disorder) He rmann Active Problem 01/16/2023 [facility] Nausea and Nausea Diagnosis 2022-042023-01-16 2023-01-16 Memoria vomiting and 0-10 00:08:24 00:08:24 l (disorder) vomiting 17:12: Herm hazel (disorder) 00 01/13/2023 Diagnosis 01/16/2023 [facility] History of Past Illness Condition Condition Condition Status Onset Resolution Last Treating Co mments Source Name Details Category Date Date Treatment Clinician Date Cannabis Cannabis Diagnosis 2022-07-30 2022-07-30 Memoria misuse misuse 4-23 01:01:14 01:01:14 l (finding) (finding) 21:33: Herm hazel 07/27/2022 00 Diagnosis 07/30/2022 [facility] Allergies, Adverse Reactions, Alerts Allergy Allergy Status Severity Reaction(s) Onset Inactive Treating Comm ents Source Name Type Date Date Clinician NO KNOWN Drug Active Univers ALLERGIE Class ity of [facility] Medical Branch Social History Social Habit Start Date Stop Date Quantity Comments Source Exposure to 2022-07-05 2022-07-15 Not sure [facility] SARS-CoV-2 (event) 00:00:00 19:58:00 Medica l Branch Sex Assigned At [birth year] [facility] 00:00:00 00:00:00 Medical Branch Smoking Status Start Date Stop Date Source Tobacco smoking consumption [facility] Tobacco smoking status [facility] Medications Ordered Filled Start Stop Current Ordering Indication Dosage Frequency Signature Comments Components Source Medication Medication Date Date Medication? Clinician (SIG) Name Name Reglan 2022-04 Yes 10 mg = 1 Mem oria mg oral 0-10 tab, PO, l tablet 17:12: QID-Before Lizeth nn 00 Meals, X 10 day, # 40 tab, 0 Refill(s) pantoprazol 2022- No 80mg 80 mg, IV Univers e 07-16 Push, ity of (PROTONIX) 04:45: 04:47 ONCE, 1 [place] 80 mg in 00 :00 dose, On Medical NaCl 0.9% Tue Branch (NS) 20 mL 07/15/22 at syringe 2345, Administer over 2 Minutes, 20 mL maalox:diph 2022- No 15mL 15 mL, Uni vers enhydrAMINE 07-16 Oral, ity of :lidocaine 04:00: 03:56 ONCE, 1 [place] 2 % viscous 00 :00 dose, On Medi dimitri 1:1:1 Tue Branch (FIRST-MOUT 07/15/22 at [facility]) 2300, oral Routine suspension 15 mL iopamidol 2022- No [id number] 75mL 75 mL, U nivers (ISOVUE 07-16 Intravenou ity o f 370-500 mL) 02:30: 02:30 s, ONCE, 1 [place] injection 00 :00 dose, On Medica l 75 mL Tue Branch 07/15/22 at 2130, Routine NaCl 0.9% 0 2022- No 1000mL at 999 Uni vers (NS) bolus 07-16 mL/hr, ity of infusion 02:15: 03:48 1,000 mL, Wai as 1,000 mL 00 :00 IV Medical Infusion, Branch ONCE, 1 dose, On Thu07/15/22 at 2115, STAT proMETHazin 2022- No 25mg 25 mg, IV Univers e 07-16 Piggyback, ity of (PHENERGAN) 02:15: 02:16 [place]CE[place] 1 [place] 25 mg in 00 :00 dose, On Medical NaCl 0.9% Tue Branch (NS) 50 mL 07/15/22 at piggyback 2114, 50 mL NaCl 0.9% 0 2022- No 1000mL at 999 Uni vers (NS) bolus 07-16 mL/hr, ity of infusion 02:00: 03:52 1,000 mL, Wai as 1,000 mL 00 :00 IV Medical Piggyback, Branch ONCE, 1 dose, On Thu07/15/22 at 2100, STAT proMETHazin 2022-0 Yes [id number] 25mg Take 1 Univers e 25 mg 4-11 tablet by ity of tablet 00:00: mouth [place] 00 every 6 Medical (six) Branch hours as needed for Nausea and Vomiting (N/V). ondansetron 2022-0 Yes [id number] 4mg Take 1 Univers 4 mg 4-11 tablet by ity of disintegrat 00:00: mouth [place] ing tablet 00 every 8 Medica l (eight) Branch hours as needed for Nausea and Vomiting (N/V). sucralfate 2022-0 Yes [id number] 1g Take 1 U nivers 1 gram 4-11 tablet by ity of tablet 00:00: mouth [place] 00 before Medical meals and Branch at bedtime. omeprazole 2022-0 Yes [id number] 40mg Take 1 U nivers 40 mg 4-11 capsule by ity of capsule 00:00: mouth in [place] 00 the Medical morning. Branch NaCl 0.9% 2022-0 2022- No 1000mL at 999 Uni vers (NS) bolus 3-25 03-25 mL/hr, ity of infusion 02:45: 03:05 1,000 mL, Wai as 1,000 mL 00 :00 IV Medical Infusion, Branch ONCE, 1 dose, On Thu06/27/22 at 2145, LAUREN KCL 2022-0 2022- No 40meq 40 mEq, Univers (KLOR-CON 3-25 03-25 Oral, ity of M20) tablet 02:45: 02:01 ONCE, 1 [place] 40 mEq 00 :00 dose, On Medical Fri Branch 06/27/22 at 2145, Routine NaCl 0.9% 2022-0 2022- No 1000mL at 999 Uni vers (NS) bolus 3-25 03-25 mL/hr, ity of infusion 00:45: 01:30 1,000 mL, Wai as 1,000 mL 00 :00 IV Medical Infusion, Branch ONCE, 1 dose, On Thu06/27/22 at 1945, LAUREN ondansetron 2022-0 2022- No 4mg 4 mg, Slow Univers (ZOFRAN 3-25 03-25 IV Push, ity of (PF)) 00:00: 00:00 ONCE, 1 [place] injection 4 00 :00 dose, On Medi dimitri mg Fri Branch 06/27/22 at 1900, LAUREN ondansetron 2022-0 Yes [id number] 4mg Take 1 Univers 4 mg 3-24 tablet by ity of disintegrat 00:00: mouth [place] ing tablet 00 every 8 Medica l (eight) Branch hours as needed for Nausea and Vomiting (N/V). ondansetron 2022- Yes [id number] 4mg Take 1 Univers 4 mg 3-24 tablet by ity of disintegrat 00:00: mouth [place] ing tablet 00 every 8 Medica l (eight) Branch hours as needed for Nausea and Vomiting (N/V). Vital Signs Vital Name Observation Time Observation Value Comments Source Heart rate 2022-07-16 05:08:00 76 /min [facility] Oxygen saturation in 2022-07-16 05:08:00 99 /min University of Arterial blood by [facility] Pulse oximetry Branch Systolic blood 2022-07-16 05:00:00 118 mm[Hg] Univer sity [facility] Diastolic blood 2022-07-16 05:00:00 81 mm[Hg] [facility] rate 2022-07-16 05:00:00 13 /min [facility] Body temperature 2022-07-16 00:55:00 37.28 Domonique [facility] Body height 2022-07-16 00:55:00 172.7 cm [facility] Body weight 2022-07-16 00:55:00 64.093 kg [facility] BMI 2022-07-16 00:55:00 21.48 kg/m2 [facility] Systolic blood 2022-06-28 02:00:00 110 mm[Hg] [facility] Diastolic blood 2022-06-28 02:00:00 82 mm[Hg] [facility] Heart rate 2022-06-28 02:00:00 63 /min [facility] Respiratory rate 2022-06-28 02:00:00 16 /min [facility] Oxygen saturation in 2022-06-28 02:00:00 96 /min University of Arterial blood by [facility] Pulse oximetry Branch Body temperature 2022-06-27 23:23:00 37.5 Domonique [facility] Body weight 2022-06-27 23:23:00 86.183 kg [facility] Heart Rate 2023-01-13 17:03:00 [facility] Systolic (mm Hg) 2023-01-13 17:03:00 Timbo rial Mike Diastolic (mm Hg) 2023-01-13 17:03:00 Mem orial [place] Height 2023-01-13 14:54:00 5 [ft_i] [facility] BMI Calculated 2023-01-13 14:54:00 Memori al [place] Weight 2023-01-13 14:54:00 [facility] [place] Temperature Oral (F) 2023-01-13 14:54:00 98.7 F [facility] Mike Temperature Oral (F) 2022-07-27 21:00:00 98.4 F [facility] [place] Heart Rate 2022-07-27 21:00:00 [facility] [place] Systolic (mm Hg) 2022-07-27 21:00:00 Timbo rial [place] Diastolic (mm Hg) 2022-07-27 21:00:00 Mem orial [place] Height 2022-07-27 18:02:00 5 [ft_i] [facility] [place] BMI Calculated 2022-07-27 18:02:00 Memori al [place] Weight 2022-07-27 18:02:00 [facility] Procedures Procedure Date / Time Performing Clinician Source Performed LACTIC ACID WHOLE BLOOD 2022-07-16 05:01:00 Alyson De León [facility] URINE DRUG (IMMUNOASSAY) 2022-07-16 03:13:00 [facility] 2022-07-16 03:13:00 Alyson De León [facility] ACUTE CARE VENOUS BLOOD 2022-07-16 02:27:00 Alyson De León [facility] LACTIC ACID WHOLE BLOOD 2022-07-16 02:27:00 Alyson De León [facility] COVID-19 (ID NOW RAPID 2022-07-16 01:22:00 Alyson De León [facility] LIPASE 2022-07-16 01:16:00 Alyson De León [facility] COMP. METABOLIC PANEL 2022-07-16 01:16:00 Alyson De León [facility] ([id number]) Medical [place] CBC WITH DIFF 2022-07-16 01:16:00 Alyson De León [facility] POCT GLUCOSE (AUTOMATED) 2022-07-16 01:04:00 Alyson De León Un [facility] CONSENT/REFUSAL FOR 2022-07-16 00:41:34 Doctor Unassigned, No [facility] URINALYSIS 2022-06-28 01:02:00 Regan Carrington [facility] LIPASE 2022-06-27 23:56:00 Regan Carrington [facility] MAGNESIUM 2022-06-27 23:56:00 Regan Carrington [facility] COMP. METABOLIC PANEL 2022-06-27 23:56:00 Regan Carrington [id number] CBC WITH DIFF 2022-06-27 23:56:00 Regan Carrington [facility] AC PANEL 21 + LACTIC 2022-06-27 23:55:00 Regan Carrington Uni [facility] ACID [facility] POCT GLUCOSE (AUTOMATED) 2022-06-27 23:33:00 Regan Carrington [facility] NOTICE OF PRIVACY 2022-06-27 23:18:00 Doctor Unassigned, No [facility] PRACTICES Name [facility] Branch CONSENT/REFUSAL FOR 2022-06-27 23:17:14 Doctor [facility]assigned, [facility] Encounters Start End Encounter Admission Attending Care Care Encounter Source Date/Time Date/Time Type Type Clinicians Facility Department ID 2023-01-13 2023-01-13 Emergency [facility] [id number] Memoria 14:34:00 17:14:[address] 2023-01-13 2023-01-13 Outpatient FAISAL Lagunas [facility] [id number] 09:34:00 12:14:00 Cole Nicole 2022-07-27 2022-07-27 Emergency [facility] [id number] Memoria 17:49:36 22:00:[address] 2022-07-27 2022-07-27 Outpatient Franca, [facility] [id number] 12:49:36 17:00:00 [place] [id number] 2022-07-27 2022-07-27 Emergency E FRANCA, [address] 12:49:00 17:00:00 [facility] 2022-07-15 2022-07-16 Emergency X [facility] ERT [id number] Univers 20:00:00 00:31:00 ALYSON [facility] [place] [facility] 2022-07-15 2022-07-16 Emergency [facility] [id number] Univers 20:00:00 00:31:00 Alyson LOMELI [id number] [facility] [id number] [facility] [id number] [address] 2022-06-27 2022-06-27 Emergency X [facility] ERT [id number] Univers 18:24:00 22:12:00 REGAN [facility] [place] [facility] 2022-06-27 2022-06-27 Emergency [facility] [id number] Univers 18:24:00 22:12:00 Regan LOMELI [id number] [facility] [id number] [facility] [id number] [address] Results Test Description Test Time Test Comments Results Result Comments Source CHEMISTRY 2023-01-13 15:29:00 Test Item Value Reference Range Interpretation Comme nts Glucose Lvl (test code = Glucose Lvl) 267 70-99 [id number] 15:29:00 Test Item Value Reference Range Interpretation Comments BUN (test code = BUN) 14 7-22 [facility] CentralNqcjbexOKRQBCYKF4997-99-53 15:29:00 Test Item Value Reference Range Interpretation Comments Creatinine Lvl (test code = Creatinine 1.13 0.50-1.40 Lvl) [facility] [id number] 15:29:00 Test Item Value Reference Range Interpretation Comments Sodium Lvl (test code = Sodium Lvl) 132 135-145 [facility] CentralPfheijfVEWWKGWYZ3060-86-95 15:29:00 Test Item Value Reference Range Interpretation Comments Potassium Lvl (test code = Potassium 4.1 3.5-5.1 Lvl) [facility] CentralTvmhsnsTVMFYYTGV7193-92-91 15:29:00 Test Item Value Reference Range Interpretation Comments Chloride Lvl (test code = Chloride Lvl) 96 95-109 [facility] CentralElvbiwePRYGTPXTJ3537-16-47 15:29:00 Test Item Value Reference Range Interpretation Comments CO2 (test code = CO2) 30 24-32 [facility] CentralPbjhfflWCPHSIZDP9770-83-42 15:29:00 Test Item Value Reference Range Interpretation Comments Calcium Lvl (test code = Calcium Lvl) 10.1 8.5-10.5 [facility] CentralHhdizsnDBXTLIXXC1573-73-34 15:29:00 Test Item Value Reference Range Interpretation Comments AGAP (test code = AGAP) 10.1 10.0-20.0 [facility] CentralOuifvhsWNNSDDMDL4809-96-77 15:29:00 Test Item Value Reference Range Interpretation Comments eGFR (test code = eGFR) 89 [facility] CentralFnmieqcIFPNEVEGB7728-15-79 15:29:00 Test Item Value Reference Range Interpretation Comments Total Protein (test code = Total 8.6 6.4-8.4 Protein) [facility] CentralJriownpHMYAXKKEG6035-23-41 15:29:00 Test Item Value Reference Range Interpretation Comments Albumin Lvl (test code = Albumin Lvl) 4.4 3.5-5.0 [facility] CentralHdsdbguZZUVCHNXB8483-04-51 15:29:00 Test Item Value Reference Range Interpretation Comments ALT (test code = ALT) 21 <=65 [facility] CentralEtsspfgQKMOYLBZR5330-27-76 15:29:00 Test Item Value Reference Range Interpretation Comments AST (test code = AST) 12 <=37 [facility] CentralZbhbthpTMSIFPLWZ9601-38-71 15:29:00 Test Item Value Reference Range Interpretation Comments Alk Phos (test code = Alk Phos) 81 39-136 [facility] CentralInfzceqACLWMEKCZ7476-30-43 15:29:00 Test Item Value Reference Range Interpretation Comments Bili Total (test code = Bili Total) 1.2 0.2-1.3 [facility] CentralOvfpbhsZOSXDCWRF5683-57-06 15:29:00 Test Item Value Reference Range Interpretation Comments Bili Direct (test code = Bili Direct) 0.3 <=0.3 [facility]vineLdudsgwOGOPQXQTP6468-36-45 15:29:00 Test Item Value Reference Range Interpretation Comments Bili Indirect (test code = Bili 0.9 <=1.0 Indirect) [facility] CentralXpyufkzWHUVBIKFH1319-21-08 15:29:00 Test Item Value Reference Range Interpretation Comments Globulin (test code = Globulin) 4.2 2.7-4.2 [facility] CentralXgbyaouZSTOYBMTO3223-37-48 15:29:00 Test Item Value Reference Range Interpretation Comments A/G Ratio (test code = A/G Ratio) 1.0 1 0.7-1.6 [facility] CentralJzsqkhbIVSJEJXBK1600-25-25 15:29:00 Test Item Value Reference Range Interpretation Comments Lipase Lvl (test code = Lipase Lvl) 20 13-77 [facility] CentralXqrcdicXYUYFTBRV6851-19-18 15:29:00 Test Item Value Reference Range Interpretation Comments pH Lio (test code = pH Lio) 7.42 1 7.28-7.42 [facility] CentralFwrcpcdFTNGVAGHU7931-23-26 15:29:00 Test Item Value Reference Range Interpretation Comments pCO2 Lio (test code = pCO2 Lio) 53 38-52 [facility] CentralHzosobrPBZAPKWJL1238-63-68 15:29:00 Test Item Value Reference Range Interpretation Comments pO2 Lio (test code = pO2 Lio) 13 20-49 [facility] CentralSvfudvpFQRDOXKAO5303-83-87 15:29:00 Test Item Value Reference Range Interpretation Comments HCO3 Lio (test code = HCO3 Lio) 34 22-26 [facility] CentralRxbpggtEJZRAABJK3427 15:29:00 Test Item Value Reference Range Interpretation Comments BE Lio (test code = BE Lio) 8 -2-2 [facility] CentralHhleudjNAEBZCONX0660-73-80 15:29:00 Test Item Value Reference Range Interpretation Comments O2 Sat Lio (calc) (test code = O2 Sat 15.8 40.0-70.0 Lio (calc)) [facility] CentralWsgeutnPAICYKBWF6415-93-19 15:29:00 Test Item Value Reference Range Interpretation Comments Temp Lio (test code = Temp Lio) 37.[address] [facility] HospitalEtrcabqHCNUOVCKJS7406-50-82 15:29:00 Test Item Value Reference Range Interpretation Comments WBC (test code = WBC) 8.0 3.7-10.[address] [facility] HospitalXscxpzjQUQTKCLUQU6667-59-54 15:29:00 Test Item Value Reference Range Interpretation Comments RBC (test code = RBC) 5.00 4.70-6.[address] [facility] [facility] [facility] HospitalXeudpjpVXVIZZMRSF6441-73-88 15:29:00 Test Item Value Reference Range Interpretation Comments Hgb (test code = Hgb) 15.2 14.0-18.[address] [facility] [facility] HospitalDvojrdxLEYAYGYXNY6729-01-59 15:29:00 Test Item Value Reference Range Interpretation Comments Hct (test code = Hct) 44.6 42.0-54.[address] [facility] HospitalOxgscbkWWWVUEKSJE7999-36-15 15:29:00 Test Item Value Reference Range Interpretation Comments MCV (test code = MCV) 89.3 80.0-94.[address] [facility] [facility] [facility] HospitalXdcvzqvKJHGVWRNCX5226-39-48 15:29:00 Test Item Value Reference Range Interpretation Comments MCH (test code = MCH) 30.3 pg 27.0-31.[address] [facility] HospitalFqqomscBYKRJYMOBR7616-05-70 15:29:00 Test Item Value Reference Range Interpretation Comments MCHC (test code = MCHC) 34.0 32.0-36.[address] [facility] HospitalRhjozdhGGRAGDHQYG0364-71-76 15:29:00 Test Item Value Reference Range Interpretation Comments RDW (test code = RDW) 13.2 11.5-14.[address] [facility] [facility] HospitalOpmdqvxGWZIFVNMKF5032-75-53 15:29:00 Test Item Value Reference Range Interpretation Comments Platelet (test code = Platelet) 332 133-[address] [facility] HospitalDwnzfpcMJNZYFKYNG9861-23-87 15:29:00 Test Item Value Reference Range Interpretation Comments MPV (test code = MPV) 8.0 7.4-10.[address] [facility] [facility] HospitalHmeupjbJSSNMOQGGK7324-67-89 15:29:00 Test Item Value Reference Range Interpretation Comments Segs (test code = Segs) 67.4 45.0-75.[address] [facility] [facility] HospitalDrkeqmlFXGIAZCPTG5994-00-73 15:29:00 Test Item Value Reference Range Interpretation Comments Lymphocytes (test code = Lymphocytes) 26.9 20.0-40.[address] [facility] [facility] HospitalQtlfcnvZYMIAHJYDW8587-34-68 15:29:00 Test Item Value Reference Range Interpretation Comments Monocytes (test code = Monocytes) 4.4 2.0-12.[address] [facility] HospitalCiaaxyeBHRLHJDJBT7798-66-72 15:29:00 Test Item Value Reference Range Interpretation Comments Eosinophils (test code = Eosinophils) 0.4 <=4.[address] [facility] [facility] [facility] HospitalMxqiatyVPDJCJLBAZ8833-98-19 15:29:00 Test Item Value Reference Range Interpretation Comments Basophils (test code = Basophils) 0.[address] <=[address] [facility] [facility] [facility] HospitalZzqooagLKUYKYEVUQ2508-66-51 15:29:00 Test Item Value Reference Range Interpretation Comments Neutrophils # (test code = Neutrophils 5.4 1.5-8.1 #) [facility] HospitalIiqpytrPJQXVSCUQQ7128-16-65 15:29:00 Test Item Value Reference Range Interpretation Comments Lymphocytes # (test code = Lymphocytes 2.2 1.0-5.5 #) [facility] HospitalHxrfbjeFWFJZEEBOP1394-80-04 15:29:00 Test Item Value Reference Range Interpretation Comments Monocytes # (test code = Monocytes #) 0.[address] [facility] [facility] HospitalNbisymbNFXEQERYUI8572-44-30 15:29:00 Test Item Value Reference Range Interpretation Comments Basophils # (test code = Basophils #) 0.1 <=0.2 [facility] AND [id number] 21:03:00 Test Item Value Reference Range Interpretation Comments UA Color (test code = Yellow *NA*(07/27/22 UA Color) 4:03 PM) [facility] AND [id number] 21:03:00 Test Item Value Reference Range Interpretation Comments UA Turbidity (test code Slight *ABN*(07/27/22 = UA Turbidity) 4:03 PM) [facility] [id number] 21:03:00 Test Item Value Reference Range Interpretation Comments UA Spec Grav (test code = UA Spec 1.029 1 Grav) [facility] AND [id number] 21:03:00 Test Item Value Reference Range Interpretation Comments UA pH (test code = UA pH) 5.0 1 5.0-8.0 [facility] AND [id number] 21:03:00 Test Item Value Reference Range Interpretation Comments UA Protein (test code = UA Protein) 100 mg/dL [facility] AND [id number] 21:03:00 Test Item Value Reference Range Interpretation Comments UA Glucose (test code = UA >=500 mg/dL Glucose) [facility] [id number] 21:03:00 Test Item Value Reference Range Interpretation Comments UA Ketones (test code = UA Ketones) 80 mg/dL [facility] [id number] 21:03:00 Test Item Value Reference Range Interpretation Comments UA Bili (test code = Negative *NA*(07/27/22 UA Bili) 4:03 PM) [facility] [id number] 21:03:00 Test Item Value Reference Range Interpretation Comments UA Blood (test code = Negative (07/27/22 4:03 UA Blood) PM) [facility] [id number] 21:03:00 Test Item Value Reference Range Interpretation Comments UA Urobilinogen (test code = UA 2.0 0.1-1.0 Urobilinogen) [facility] [id number] 21:03:00 Test Item Value Reference Range Interpretation Comments UA Nitrite (test code Negative (07/27/22 4:03 = UA Nitrite) PM) [facility] [id number] 21:03:00 Test Item Value Reference Range Interpretation Comments UA Leuk Est (test Negative (07/27/22 4:03 code = UA Leuk Est) PM) [facility] [id number] 21:03:00 Test Item Value Reference Range Interpretation Comments UA Ascorbic Acid (test Negative 2*NA*(07/27/22 code = UA Ascorbic 4:03 PM) Acid) [facility] [id number] 21:03:00 Test Item Value Reference Range Interpretation Comments UA Sq Epi (test code = UA Sq Occasional /LPF Epi) [facility] [id number] 21:03:00 Test Item Value Reference Range Interpretation Comments UA WBC (test code = UA WBC) 3 <=5 [facility] [id number] 21:03:00 Test Item Value Reference Range Interpretation Comments UA RBC (test code = UA RBC) 3 <=2 [facility] [id number] 21:03:00 Test Item Value Reference Range Interpretation Comments UA Bacteria (test code = UA Occasional /HPF Bacteria) [facility] [id number] 21:03:00 Test Item Value Reference Range Interpretation Comments UA Mucus (test code = UA Mucus) Many /LPF [facility] HospitalZpkdnbtZMWLSFDLJS8608-13-53 18:37:00 Test Item Value Reference Range Interpretation Comments RBC (test code = RBC) 4.55 4.70-6.10 [facility]PRJAYJRJFK1212-80-44 18:37:00 Test Item Value Reference Range Interpretation Comments Hgb (test code = Hgb) 13.7 14.0-18.0 [facility] HospitalWbkuwdnXGISZVAYOV4307-26-51 18:37:00 Test Item Value Reference Range Interpretation Comments Hct (test code = Hct) 40.3 42.0-54.0 [facility]sg[facility]fcJKFOFQADWZ9506-38-41 18:37:00 Test Item Value Reference Range Interpretation Comments MCV (test code = MCV) 88.5 80.0-94.0 [facility]SqygxupEFRSDLUWSF1944-08-67 18:37:00 Test Item Value Reference Range Interpretation Comments MCH (test code = MCH) 30.1 pg 27.0-31.0 [facility]UsopoguYBPXLCMGME9873-45-15 18:37:00 Test Item Value Reference Range Interpretation Comments MCHC (test code = MCHC) 34.0 32.0-36.0 [facility]PikstvzJDIGAVSIAL3693-75-98 18:37:00 Test Item Value Reference Range Interpretation Comments RDW (test code = RDW) 13.1 11.5-14.5 [facility]UzpthepTGDDQQVFVR4423-92-61 18:37:00 Test Item Value Reference Range Interpretation Comments Platelet (test code = Platelet) 284 133-[address] [facility] HospitalIwtiqvsUVLRZQBLCN2520-79-36 18:37:00 Test Item Value Reference Range Interpretation Comments MPV (test code = MPV) 7.7 7.4-10.4 [facility]WbfuaizIWXLSMVXBF7335-67-69 18:37:00 Test Item Value Reference Range Interpretation Comments Segs (test code = Segs) 77.4 45.0-75.[address] [facility] HospitalThfmkppSWYXRDVIRU8802-28-15 18:37:00 Test Item Value Reference Range Interpretation Comments Lymphocytes (test code = Lymphocytes) 17.8 20.0-40.0 [facility]PowzzxgSZPACRCWRN8948-71-69 18:37:00 Test Item Value Reference Range Interpretation Comments Monocytes (test code = Monocytes) 3.6 2.0-12.0 [place] [address]-04-23 18:37:00 Test Item Value Reference Range Interpretation Comments Basophils (test code = Basophils) 1.2 <=1.0 [place] [address]-04-23 18:37:00 Test Item Value Reference Range Interpretation Comments Neutrophils # (test code = Neutrophils 6.0 1.5-8.1 #) [facility] HospitalTqygcmdJLTWCHBEKC3853-52-81 18:37:00 Test Item Value Reference Range Interpretation Comments Lymphocytes # (test code = Lymphocytes 1.4 1.0-5.5 #) [facility] HospitalEkqziyvCXXYNXZUKK0563-78-29 18:37:00 Test Item Value Reference Range Interpretation Comments Monocytes # (test code = Monocytes #) 0.3 <=0.8 [place] [address]-04-23 18:37:00 Test Item Value Reference Range Interpretation Comments Basophils # (test code = Basophils #) 0.1 <=0.2 [place] [address]-04-23 18:37:00 Test Item Value Reference Range Interpretation Comments Glucose Lvl (test code = Glucose Lvl) 286 70-99 [facility]JisssfyBTFHTKGMD0498-11-98 18:37:00 Test Item Value Reference Range Interpretation Comments BUN (test code = BUN) 17 7-22 [facility] CentralBvnysjhTSDYAZEZH4893-55-53 18:37:00 Test Item Value Reference Range Interpretation Comments Creatinine Lvl (test code = Creatinine 1.20 0.50-1.40 Lvl) [facility] CentralHfgqnbpRZHIFMWKD4760-84-19 18:37:00 Test Item Value Reference Range Interpretation Comments Sodium Lvl (test code = Sodium Lvl) 132 135-145 [facility] CentralRlsumfsCRCHAGRHV1546-49-35 18:37:00 Test Item Value Reference Range Interpretation Comments Potassium Lvl (test code = Potassium 4.1 3.5-5.1 Lvl) [facility] CentralMcalqpeVSMYGKBEF0106-70-18 18:37:00 Test Item Value Reference Range Interpretation Comments Chloride Lvl (test code = Chloride Lvl) 98 95-109 [facility] CentralRtvjcdtZMKCDBYGF5147-22-08 18:37:00 Test Item Value Reference Range Interpretation Comments CO2 (test code = CO2) 24 24-32 [place] 883143-04-23 18:37:00 Test Item Value Reference Range Interpretation Comments Calcium Lvl (test code = Calcium Lvl) 9.9 8.5-10.5 [facility]fr[facility]NAFKLADT7202-53-19 18:37:00 Test Item Value Reference Range Interpretation Comments Total Protein (test code = Total 7.9 6.4-8.4 Protein) [facility] CentralQdtgzpgRCPHBXFVV7723-68-11 18:37:00 Test Item Value Reference Range Interpretation Comments Albumin Lvl (test code = Albumin Lvl) 4.2 3.5-5.0 [facility] DallasBxozrsnCLQANXQEK0817-13-17 18:37:00 Test Item Value Reference Range Interpretation Comments ALT (test code = ALT) 19 <=65 [facility] DallasQuywepbNLBAOCQWV9105-12-26 18:37:00 Test Item Value Reference Range Interpretation Comments AST (test code = AST) 11 <=37 [facility] DallasSdddzhvXOSJQSMFF0895-25-06 18:37:00 Test Item Value Reference Range Interpretation Comments Alk Phos (test code = Alk Phos) 63 39-136 [facility] CentralWlwvgnwYTUAWXJFY9131-42-99 18:37:00 Test Item Value Reference Range Interpretation Comments Bili Total (test code = Bili Total) 0.9 0.2-1.3 [facility]PRBDYSR2130[facility]20[facility]11 18:37:00 Test Item Value Reference Range Interpretation Comments AGAP (test code = AGAP) 14.1 10.0-20.0 [facility] SystemVgxisqmLYNCZJHQL6346-78-83 18:37:00 Test Item Value Reference Range Interpretation Comments B/C Ratio (test code = B/C Ratio) 14 1 6-25 [facility] SystemUrtobiyVAGJMZSTP6646-58-59 18:37:00 Test Item Value Reference Range Interpretation Comments Globulin (test code = Globulin) 3.7 2.7-4.2 [facility] DallasNzvencwDSCWWEVJW4912-74-88 18:37:00 Test Item Value Reference Range Interpretation Comments A/G Ratio (test code = A/G Ratio) 1.1 1 0.7-1.6 [facility] SystemBgnnoizTINHQHASF6052-10-09 18:37:00 Test Item Value Reference Range Interpretation Comments eGFR (test code = eGFR) 83 [facility] SystemJumuqagHQIJOHJWE4828-38-48 18:37:00 Test Item Value Reference Range Interpretation Comments Lipase Lvl (test code = Lipase Lvl) 33 13-77 [facility]EpepdzzNZGVKFFIW1350-51-28 18:37:00 Test Item Value Reference Range Interpretation Comments Magnesium Lvl (test code = Magnesium 1.8 1.8-2.4 Lvl) [facility]vineLelnkglZXCCDFOGZ0749-52-67 18:37:00 Test Item Value Reference Range Interpretation Comments Phosphorus (test code = Phosphorus) 3.5 2.5-4.5 [facility]vineTfutdfwJLIKPPQOLY5096-03-92 18:37:00 Test Item Value Reference Range Interpretation Comments WBC (test code = WBC) 7.7 3.7-10.4 [facility]vineKezazjyTSUMOR1695-86-58 18:34:46 Test Item Value Reference Range Interpretation Comments RADRPT (test code = PROCEDURE INFORMATION: RADRPT) Exam: XR Chest Exam date and time: 07/27/2022 1:13 PM Age: 32 years old Clinical indication: /vomiting TECHNIQUE: Imaging protocol: Radiologic exam of the chest. Views: 1 view. COMPARISON: No relevant prior studies available. FINDINGS: Lungs: Unremarkable. No consolidation. Pleural spaces: Unremarkable. No pleural effusion. No pneumothorax. Heart/Mediastinum: Unremarkable. No cardiomegaly. Bones/joints: Unremarkable. IMPRESSION: No acute findings. Dragan Rivera MD On 07/27/2022 13:33:40; VR-GHR__[id number] [facility] GLUCOSE (AUTOMATED)2022-07-16 01:05:07 Test Item Value Reference Range Interpretation Comments POCT GLU (test code = 270 mg/dL 70-110 H Notifi ed Provider [id number]) Lab Interpretation (test Abnormal code = 65510-5) [facility]51 Test Item Value Reference Range Interpretation Comments MAGNESIUM (test code = 4824045997) 2.0 mg/dL 1.7-2.4 Lab Interpretation (test code = Normal 85777-1) [facility]. METABOLIC PANEL (05092)2022-06-28 00:39:31 Test Item Value Reference Range Interpretation Comments NA (test code = 130 mmol/L 135-145 L 7052631367) K (test code = 3.4 mmol/L 3.5-5.0 L 7124116767) CL (test code = 84 mmol/L 98-108 L 4906754166) CO2 TOTAL (test code = 35 mmol/L 23-31 H 9660280568) AGAP (test code = 11 2-16 5548214037) BUN (test code = 24 mg/dL 7-23 H 8908131071) GLUCOSE (test code = 198 mg/dL 70-110 H 9533300172) CREATININE (test code = 1.03 mg/dL 0.60-1.25 3875769213) TOTAL BILI (test code = 1.4 mg/dL 0.1-1.1 H 3923544920) CALCIUM (test code = 9.6 mg/dL 8.6-10.6 6428255177) T PROTEIN (test code = 7.9 g/dL 6.3-8.2 0865671143) ALBUMIN (test code = 4.6 g/dL 3.5-5.0 4698052223) ALK PHOS (test code = 83 U/L 34-122 6122259995) ALTv (test code = 16 U/L 5-50 1742-6) AST(SGOT) (test code = 15 U/L 13-40 5044464680) eGFR (test code = 84.2 mL/min/1.73m2 8403117477) MONICA (test code = MONICA) Association of Glomerular Filtration Rate (GFR) and Staging of Kidney Disease* + --+ --+ ------+| GFR (mL/min/1.73 m2) ?| With Kidney Damage ?| ?Without Kidney Damage+ --------+ --------+ +| ?>90 ?| ?Stage one ?| ? Normal ?+ ---+ ---+ -------+| ?60-89 ?| ?Stage two ?| ? Decreased GFR ? + --+ --+ ------+| ?30-59 ?| ?Stage three ?| ? Stage three ? + --+ --+ ------+| ?15-29 ?| ?Stage four ? | ? Stage four ?+ ---+ ---+ -------+| ?<15 (or dialysis) ? ?| ?Stage five ? | ? Stage five ?+ ---+ ---+ -------+ *Each stage assumes the associated GFR level has been in effect for at least three months. ?Stages 1 to 5, with or without kidney disease, indicate chronic kidney disease. Notes: Determination of stages one and two (with eGFR >59mL/min/1.73 m2) requires estimation of kidney damage for at least three months as defined by structural or functional abnormalities of the kidney, manifested by either:Pathological abnormalities or Markers of kidney damage (including abnormalities in the composition of the blood or urine or abnormalities in imaging tests). Lab Interpretation Abnormal (test code = 30535-0) [facility] 00:39:31 Test Item Value Reference Range Interpretation Comments LIPASE (test code = 6189410219) 255 U/L 0-220 H Lab Interpretation (test code = Abnormal 77942-0) [facility]CB WITH NZKV2982-74-22 00:28:28 Test Item Value Reference Range Interpretation Comments WBC (test code = 9.29 See_Comment [Automated 6690-2) message] The sy stem which generated this result transmitted reference range : 4.20 - 10.70 10*3/?L. The reference range was not used to interpret this result as normal/abnormal . RBC (test code = 5.62 See_Comment H [Automated 789-8) message] The sy stem which generated this result transmitted reference range : 4.26 - 5.52 10*6/?L. The reference range was not used to interpret this result as normal/abnormal . HGB (test code = 17.0 g/dL 12.2-16.4 H 718-7) HCT (test code = 47.9 % 38.4-49.3 4544-3) MCV (test code = 85.2 fL 81.7-95.6 787-2) MCH (test code = 30.2 pg 26.1-32.7 785-6) MCHC (test code = 35.5 g/dL 31.2-35.0 H 786-4) RDW-SD (test code = 35.4 fL 38.5-51.6 L 95664-5) RDW-CV (test code = 11.5 % 12.1-15.4 L 788-0) PLT (test code = 318 See_Comment [Automated 777-3) message] The sy stem which generated this result transmitted reference range : 150 - 328 10*3/ ?L. The reference r kaya was not used to interpret this result as normal/abnormal . MPV (test code = 9.4 fL 9.8-13.0 L 50952-4) NRBC/100 WBC (test 0.0 See_Comment [Automat ed code = 3075689913) message] The system which generated this result transmitted reference range : 0.0 - 10.0 /100 WBCs. The refer ence range was not u sed to interpret th is result as normal/abnormal . NRBC x10^3 (test code See_Comment [Auto mated = 8436612685) message] The s ystem which generated this result transmitted reference range : 10*3/?L. The reference range was not used to interpret this result as normal/abnormal . GRAN MAT (NEUT) % 55.3 % (test code = 770-8) IMM GRAN % (test code 0.40 % = 0948734166) LYMPH % (test code = 33.6 % 736-9) MONO % (test code = 5.9 % 5905-5) EOS % (test code = 4.5 % 713-8) BASO % (test code = 0.3 % 706-2) GRAN MAT x10^3(ANC) 5.13 10*3/uL 1.99-6.95 (test code = 3335054596) IMM GRAN x10^3 (test 0.04 10*3/uL 0.00-0.06 code = 1900601593) LYMPH x10^3 (test code 3.12 10*3/uL 1.09-3.23 = 731-0) MONO x10^3 (test code 0.55 10*3/uL 0.36-1.02 = 742-7) EOS x10^3 (test code = 0.42 10*3/uL 0.06-0.53 711-2) BASO x10^3 (test code 0.03 10*3/uL 0.01-0.09 = 704-7) Lab Interpretation Abnormal (test code = 10067-3) [facility] + LACTIC [id number] 00:12:12 Test Item Value Reference Range Interpretation Comments PH (test code = 7.46 7.32-7.42 H 4175794255) PCO2 LIO (test code = 50 See_Comment [Auto mated 2139172245) message] The sy stem which generated this result transmitted reference range : 41 - 51 mmHg. The reference range was not used to interpret this result as normal/abnormal . PO2 LIO (test code = 32 See_Comment [Autom ated 7839091223) message] The sy stem which generated this result transmitted reference range : 25 - 40 mmHg. The reference range was not used to interpret this result as normal/abnormal . HCO3 LIO (test code = 35 See_Comment H [Auto mated 6501172106) message] The sy stem which generated this result transmitted reference range : 24 - 28 mEq/L. The reference range was not used to interpret this result as normal/abnormal . AC VBE(BEAKER) (test 8.8 mEq/L code = 2921905756) THB LIO (test code = 17.0 g/dL 13.5-18.0 9260512178) %O2HB LIO (test code = 61.2 % 52.0-63.0 0071105211) %COHB LIO (test code = 2.2 % 0.0-1.5 H 0300295373) %METHB LIO (test code = 0.3 % 0.4-1.5 L 5176653866) VOL%O2 LIO (test code = 14.6 % 6.0-12.0 H 3790417333) NA (test code = 131 mmol/L 135-145 L 4729983863) K+ (test code = 3.1 mmol/L 3.5-5.0 L 3986843232) AC CA IONZ (test code = 4.60 mg/dL 4.50-5.30 5192798400) GLUCOSE (test code = 223 mg/dL 70-110 H 0661464735) LACTIC ACID (test code 1.71 mmol/L 0.50-2.20 = 3276324373) Lab Interpretation Abnormal (test code = 99839-4) [facility] 23:36:11 Test Item Value Reference Range Interpretation Comments POCT GLU (test code = 7871624121) 203 mg/dL 70-110 H Lab Interpretation (test code = Abnormal 39930-3) [facility]"
[2023-01-20] MEDS ORDERED: NA CHLORIDE 0.9% 1,000 ML ONE ×2 (18:48→21:21)
[2023-01-20] MEDS ORDERED: ONDANSETRON 4 MG/2 ML VIAL ONE (18:48)
[2023-01-20] MEDS ORDERED: FAMOTIDINE 20 MG/2 ML VIAL IV ONE (18:48)
[2023-01-20] MEDS ORDERED: KETOROLAC 30 MG/ML INJ ONE (18:48)
[2023-01-20 19:20] LABS: Absolute Lymphocytes (CBC) 1.8 K/uL (0.7-4.9); Hematocrit 45.3 % (39.6-49.0); Lymphocytes % 31.1 % (15.3-44.8); MCV 87.1 fL (80-100); MPV 7.5 fL (7.6-11.3); Platelets 278 thou/uL (152-406)
[2023-01-20 19:37] LABS: Albumin 4.4 g/dL (3.4-5.0); Bilirubin Total 1.3 mg/dL (0.2-1.0); Blood Morphology Comment NOT SEEN (NOT SEEN); Platelet Estimate ADEQ; Potassium 3.1 mEq/L (3.5-5.1); Protein, Total 8.4 g/dL (6.4-8.2); White Blood Cell Scan OK (OK)
--- NOTE | 2023-01-20 20:22 | ER ---
Nurse's Notes [facility] Name: Cecile Miranda Age: 33 yrs Sex: Male : 1990 Arrival Date: 01/20/2023 Time: 17:37 Bed IW10 Private MD: Diagnosis: Acute Kidney Injury;Nausea with vomiting, unspecified;Abdominal pain, unspecified Presentation: 01/20 18:00 Chief complaint: Patient states: he has been having nausea, vomiting and abdominal pain ap3 since june, patient had an EGD in june which showed gastritis. Coronavirus screen: At this time, the client does not indicate any symptoms associated with coronavirus-19. Ebola Screen: No symptoms or risks identified at this time. Initial Sepsis Screen: Does the patient meet any 2 criteria?. Risk Assessment: Do you want to hurt yourself or someone else? Patient reports no desire to harm self or others. Onset of symptoms was June 2022. 18:00 Method Of Arrival: Ambulatory ap3 18:02 Initial Sepsis Screen: Does the patient have a suspected source of infection? Yes: ap3 Acute abdominal pain. 18:02 Acuity: CARLOS 3 ap3 Triage Assessment: 18:03 General: Appears uncomfortable, Behavior is calm, cooperative, appropriate for age. ap3 Pain: Complains of pain in abdomen. Neuro: Level of Consciousness is awake, alert, obeys commands, Oriented to person, place, time. Cardiovascular: Patient's skin is warm and dry. Respiratory: Airway is patent Respiratory effort is even, unlabored, Respiratory pattern is regular, symmetrical. GI: Reports lower abdominal pain, upper abdominal pain, nausea, vomiting. Historical: - Allergies: 18:01 No Known Allergies; ap3 - PMHx: 18:01 diabetes mellitus; h. pylori; ULCER; ap3 - Immunization history:: Client reports having NOT received the Covid vaccine. - Social history:: Smoking status: Patient/guardian denies using tobacco. Screenin:03 [facility] ED Fall Risk Assessment (Adult) History of falling in the last 3 months, ap3 including since admission No falls in past 3 months (0 pts). Abuse screen: Denies threats or abuse. Nutritional screening: Has had N/V for 3 or more days. Tuberculosis screening: No symptoms or risk factors identified. Assessment: 18:30 General: Appears ill, Behavior is calm, cooperative, appropriate for age. Pain: Denies ko1 pain. Neuro: No deficits noted. Cardiovascular: No deficits noted. Respiratory: No deficits noted. GI: Pt is actively vomiting. : No deficits noted. EENT: No deficits noted. Derm: No deficits noted. Musculoskeletal: No deficits noted. 19:20 Reassessment: ASSUMED CARE OF PT. PT ACTIVELY VOMITING. US GUIDED IV INSERTED BY DES godoy RN. FLUIDS NOW INFUSING, ORDERED MEDS GIVEN. PT TOLERATING WELL. WARM BLANKET PROVIDED. VS STABLE. General: Appears in no apparent distress. uncomfortable. 20:20 Reassessment: PT STATES HE WANTS TO BE ADMITTED. PT INFORMED MD HAS HIM FOR DISCHARGE. walt FAMILY AND PT INFORMED ABOUT ADMISSION CRITERIA. FAMILY STATES HE THEY MIGHT TAKE HIM TO [place] IN THE MORNING. PT REQUEST ICE CHIPS TO EAT. PT TOLERATING ICE CHIPS WELL. VS STABLE. NO VOMITING NOTED. 20:53 Reassessment: Discussed discharge with pt and family. Both requested to speak with the [facility] ER physician again. Provider notified and at the bedside explaining plan of care and discharge with the pt and family. 21:02 Reassessment: Provider changed dispo to admit. [facility] Vital Signs: 18:02 Pulse 115; Resp 18; Temp 97.7; Pulse Ox 100% ; Weight 63.5 kg; Pain 10/10; ap3 18:03 BP 142 / 97; ap3 19:20 BP 140 / 90; Pulse 86; Resp 20; Pulse Ox 99% ; jj7 20:20 BP 125 / 74; Pulse 86; Resp 20; Pulse Ox 99% ; jj7 21:00 BP 121 / 92; Pulse 90; Resp 17; Pulse Ox 100% ; jj7 22:26 BP 128 / 83; Pulse 81; Resp 16; Pulse Ox 100% ; jj7 18:02 Pain Scale: Adult ap3 ED Course: 17:46 Patient arrived in ED. mg5 17:46 Trini Robles [facility]-C [facility] kb 17:46 Blake Hameed DO is Attending Physician. kb 18:03 Triage completed. ap3 18:03 Arm band placed on left wrist. ap3 18:27 Angelina Christian, SALMA is Primary Nurse. ko1 18:30 Patient has correct armband on for positive identification. Placed in gown. Bed in low ko1 position. Call light in reach. Side rails up X2. Provided Education on: na. Client placed on continuous cardiac and pulse oximetry monitoring. NIBP monitoring applied. school bus monitor on. Door closed. Noise minimized. Lights dimmed. Warm blanket given. 18:56 Missed attempt(s): 22 gauge in left forearm. Bleeding controlled, band aid applied, ds4 catheter tip intact. 19:09 Inserted saline lock: 20 gauge in left antecubital area, using aseptic technique. nj1 ,using aseptic technique. Ultrasound guided. Catheter tip well visualized within vasculature during placement. 20:59 Easton Duarte is Hospitalizing Provider. ms3 22:28 No provider procedures requiring assistance completed. Patient admitted, IV remains in j7 place. Administered Medications: 19:24 Drug: NS 0.9% IV 1000 ml IV at 1 bolus Per protocol; 1000 mL bolus Route: IV; Rate: 1 jj7 bolus; Site: left antecubital; 20:30 Follow up: IV Status: Completed infusion jj7 19:25 Drug: Famotidine IVP 20 mg IVP once; dilute with 10 mL 0.9% NaCl; give over 2 minutes jj7 Route: IVP; Site: left antecubital; 21:16 Follow up: Response: No adverse reaction jj7 19:25 Drug: Ondansetron IVP 4 mg IVP once; over 2 minutes Route: IVP; Site: left antecubital; jj7 19:40 Follow up: Response: Nausea is decreased jj7 19:26 Drug: TORadol - Ketorolac IVP 15 mg IVP once Route: IVP; Site: left antecubital; jj7 19:40 Follow up: Response: Pain is decreased jj7 21:14 Drug: Pantoprazole IVP 40 mg IVP once Route: IVP; Site: left antecubital; jj7 21:14 Drug: NS 0.9% IV 1000 ml IV at 125 ml/hr continuous Route: IV; Rate: 125 ml/hr; Site: jj7 left antecubital; 22:13 Drug: morphine IVP or IV 4 mg IVP once over 4 mins Route: IVP; Infused Over: 4 mins; jj7 Site: left antecubital; Medication: 22:28 VIS not applicable for this client. jj7 Outcome: 20:21 Discharge ordered by . ms3 21:00 Decision to Hospitalize by Provider. ms3 22:28 Admitted to Med/surg accompanied by tech, via wheelchair, room 211, walt 22:28 Condition: improved 22:36 Admitted to Med/surg Report called to LAUREN [email or web address] 22:53 Patient left the ED. jj7 Signatures: Trini Robles, [employer] SURF[employer]ER-C JEWEL FLAT SURFACER-CkAlec Marte ds4 Samson Okeefe, RN RN jb4 Sandra Nieto RN RN ap3 Blake Hameed DO DO ms3 Angelina Christian, RN RN koDarrell Welsh RN RN jj7 Des Briceno RN RN nj1 Mery Washington mg5 Corrections: (The following items were deleted from the chart) 21:02 20:53 Discharged to home ambulatory, with family, jb jb4 21:02 20:53 Condition: stable jb4 jb4 21:02 20:53 Discharge instructions given to patient, family, Instructed on discharge jb4 instructions, follow up and referral plans. medication usage, Demonstrated understanding of instructions, follow-up care, medications, Prescriptions given X 1, jb4
--- NOTE | 2023-01-20 20:22 | EDPHYS ---
Physician Documentation [facility] Name: Cecile Miranda Age: 33 yrs Sex: Male : 1990 Arrival Date: 01/20/2023 Time: 17:37 Bed IW10 Private MD: ED Physician Blake Hameed HPI: 01/20 19:05 This 33 yrs old Black Male presents to ER via Ambulatory with complaints of Vomiting. kb 19:05 The patient presents to the emergency department with nausea, vomiting, abdominal pain. kb Onset: The symptoms/episode began/occurred 7 month(s) ago. Possible causes: gastritis. The symptoms are aggravated by nothing. The symptoms are alleviated by nothing. Associated signs and symptoms: Pertinent positives: abdominal pain, nausea, vomiting, Pertinent negatives: constipation, diarrhea, fever. Severity of symptoms: At their worst the symptoms were moderate in the emergency department the symptoms are unchanged. The patient has not experienced similar symptoms in the past. The patient has been recently seen by a physician:. Pt reports nausea, vomiting and abd pain that started 7 months ago. States he has been to multiple ERs, has had 2 endoscopies (last one on Thursday) and is still having symptoms. Able to tolerate ice only. . Historical: - Allergies: 18:01 No Known Allergies; ap3 - PMHx: 18:01 diabetes mellitus; h. pylori; ULCER; ap3 - Immunization history:: Client reports having NOT received the Covid vaccine. - Social history:: Smoking status: Patient/guardian denies using tobacco. ROS: 19:02 Constitutional: Negative for fever, chills, and weight loss, kb 19:02 Abdomen/GI: Positive for abdominal pain, nausea and vomiting, Negative for diarrhea, constipation, 19:02 All other systems are negative, Exam: 19:02 Constitutional: This is a well developed, well nourished patient who is awake, alert, kb and in no acute distress. Head/Face: Normocephalic, atraumatic. ENT: Moist Mucous membranes Cardiovascular: Regular rate Respiratory: Respirations even and unlabored. No increased work of breathing. Talking in full sentences Skin: Warm, dry with normal turgor. Normal color. MS/ Extremity: Pulses equal, no cyanosis. Neurovascular intact. Full, normal range of motion. Neuro: Awake and alert, GCS 15, oriented to person, place, time, and situation. Moves all extremities. Normal gait. 19:02 Abdomen/GI: Inspection: abdomen appears normal, Bowel sounds: normal, Palpation: soft, in all quadrants, mild abdominal tenderness, in all quadrants, Vital Signs: 18:02 Pulse 115; Resp 18; Temp 97.7; Pulse Ox 100% ; Weight 63.5 kg; Pain 10/10; ap3 18:03 BP 142 / 97; ap3 19:20 BP 140 / 90; Pulse 86; Resp 20; Pulse Ox 99% ; jj7 20:20 BP 125 / 74; Pulse 86; Resp 20; Pulse Ox 99% ; jj7 21:00 BP 121 / 92; Pulse 90; Resp 17; Pulse Ox 100% ; jj7 22:26 BP 128 / 83; Pulse 81; Resp 16; Pulse Ox 100% ; jj7 18:02 Pain Scale: Adult ap3 MDM: 17:47 Patient medically screened. kb 19:01 Differential diagnosis: Nonspecific abd pain, gastritis, viral gastroenteritis, GERD. kb Data reviewed: vital signs, nurses notes. External Records Reviewed: Endoscopy records from 01/16/23 reviewed. Diagnosed with gastritis and omeprazole increased to BID. Transition of care: After a detail discussion of the patient's case, care is transferred to Blake Hameed DO. 20:19 Data reviewed: lab test result(s), and as a result, I will discharge patient. I ms3 considered the following discharge prescriptions or medication management in the emergency department Medications were administered in the Emergency Department. See MAR. Special discussion: Based on the patient's Hx, exam, and Dx evaluation, there is no indication for emergent surgery or inpatient Tx. It is understood by the patient/guardian that if the Sx's persist or worsen they need to return immediately for re-evaluation. ED course: Discussed labs with patient and his mother. 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 Patient to increase medications as his harbormaster has recommended. Patient states oral medications have made him vomit. We will give patient prescription for Phenergan rectal suppositories. Patient understands and agrees with plan. All questions were answered. Return precautions discussed include worsening symptoms, or any other concerns. 21:02 ED course: Patient unable to tolerate p.o. Patient's creatinine 1.42. We will place ms3 patient observation for IV hydration. Patient and his mother understand agree with plan. 01/20 18:03 Order name: CBC with Diff; Complete Time: 19:55 kb 01/20 18:03 Order name: CMP; Complete Time: 19:55 kb 01/20 18:03 Order name: Lipase; Complete Time: 19:55 kb 01/20 19:24 Order name: CBC Smear Scan; Complete Time: 19:55 EDMS 01/20 18:03 Order name: IV Saline Lock; Complete Time: 19:25 kb 01/20 18:03 Order name: Labs collected and sent; Complete Time: 19:25 kb Administered Medications: 19:24 Drug: NS 0.9% IV 1000 ml IV at 1 bolus Per protocol; 1000 mL bolus Route: IV; Rate: 1 jj7 bolus; Site: left antecubital; 20:30 Follow up: IV Status: Completed infusion jj7 19:25 Drug: Famotidine IVP 20 mg IVP once; dilute with 10 mL 0.9% NaCl; give over 2 minutes jj7 Route: IVP; Site: left antecubital; 21:16 Follow up: Response: No adverse reaction jj7 19:25 Drug: Ondansetron IVP 4 mg IVP once; over 2 minutes Route: IVP; Site: left antecubital; jj7 19:40 Follow up: Response: Nausea is decreased jj7 19:26 Drug: TORadol - Ketorolac IVP 15 mg IVP once Route: IVP; Site: left antecubital; jj7 19:40 Follow up: Response: Pain is decreased jj7 21:14 Drug: Pantoprazole IVP 40 mg IVP once Route: IVP; Site: left antecubital; jj7 21:14 Drug: NS 0.9% IV 1000 ml IV at 125 ml/hr continuous Route: IV; Rate: 125 ml/hr; Site: jj7 left antecubital; 22:13 Drug: morphine IVP or IV 4 mg IVP once over 4 mins Route: IVP; Infused Over: 4 mins; jj7 Site: left antecubital; Disposition: 20:21 Co-signature as Attending Physician, Blake Hameed DO. ms3 Disposition Summary: 01/20/23 21:00 Hospitalization Ordered Notes: Hospitalization Status: Observation ms3 Provider: Easton Duarte ms3 Location: Telemetry/MedSurg (observation)(01/20/23 21:00) ms3 Condition: Stable(01/20/23 21:00) ms3 Problem: new ms3 Symptoms: are unchanged ms3 Bed/Room Type: Standard ms3 Room Assignment: 211(01/20/23 21:44) cg Diagnosis - Acute Kidney Injury ms3 - Nausea with vomiting, unspecified ms3 - Abdominal pain, unspecified ms3 Forms: - Medication Reconciliation Form ms3 - SBAR form ms3 - Leadership Thank You Letter ms3 Signatures: Dispatcher [employer] EDTrini Wylie, OPTICAL ASSISTANT-C OPTICAL ASSISTANT-Laura Lu, RN RN cg Sandra Nieto RN RN ap3 Blake Hameed DO DO ms3 Darrell Luna, RN RN jj7 Corrections: (The following items were deleted from the chart) 20:59 20:21 Home ms3 ms3 20:59 20:21 Stable ms3 ms3 20:59 20:21 Abdominal pain, Generalized ms3 ms3 20:59 20:21 Vomiting ms3 ms3 21:44 21:00 ms3 cg
--- NOTE | 2023-01-20 21:07 | P.HP ---
Certification for Inpatient Patient admitted to: Observation With expected LOS: <2 Midnights Patient will require the following post-hospital care: None Practitioner: I am a practitioner with admitting privileges, knowledge of patient current condition, hospital course, and medical plan of care. Services: Services provided to patient in accordance with Admission requirements found in Title 42 Section 412.3 of the Code of Federal Regulations Patient History Date of Service: 01/21/23 Reason for admission: Abdominal pain History of Present Illness: 33-year-old -[place]ron[place] male with a past medical history of peptic ulcer disease, gastric ulcer, diabetes presents to the emergency room with nausea vomiting. Reports associated abdominal pain possibly related to gastritis.He reports symptoms started 6-7 months ago, He follows Dr. Alix REN. He reports 2 prior endoscopies, one on Thursday. He reports p.o. intake. He denies diarrhea, constipation, fever, chills, shortness of breath, chest pain. Plan to admit for ops for abdominal pain, nausea vomiting unspecified, acute kidney injury patient was treated with normal saline, Pepcid, Zofran, Toradol for pain. Laboratory evaluation CBC unremarkable mild hyponatremia 131 mild hypokalemia 3.1, acute kidney injury BUN 13 creatinine 1.42, blood glucose 202, Allergies No Known Allergies Allergy (Unverified 05/31/22 23:57) Home Medications: Alcohol Antiseptic Pads [Alcohol Prep Pads] 1 each TP BID #1 box 06/01/22 Blood Sugar Diagnostic [Blood Glucose Test Strip] 1 each MC BID #30 strip 06/01/22 Blood-Glucose Meter [Blood Glucose Monitoring] 1 each MC BID #1 kit 06/01/22 Insulin 70/30 NPH/Reg Human [Novolin 70/30*] 20 unit SQ Q12H #15 ml 06/01/22 Lancets [Lancets Thin] 1 each MC BID #1 box 06/01/22 Metformin HCl [Glucophage*] 500 mg PO BIDWM 06/01/22 Pen Needle, Diabetic [Pen Needle] 1 each MC BID #1 box 06/01/22 Amox/Clavulanate [Augmentin 875-125 Tab*] 875 mg PO BID #60 tab 08/04/22 Pantoprazole [Protonix Tab*] 40 mg PO BIDAC #60 tab 08/04/22 Sucralfate [Carafate Liq] 10 ml PO ACHS #1000 ml 08/04/22 metroNIDAZOLE [Flagyl*] 500 mg PO BID #60 tab 08/04/22 - Past Medical/Surgical History Diabetic: Yes -: Type 1 Diabetes -: GERD -: Gastroparesis -: None Psychosocial/ Personal History: Patient is . - Family History Father -: Heart disease, Hypertension, Diabetes Mother -: Heart disease, Hypertension, Diabetes - Social History Alcohol use: No CD- Drugs: No Caffeine use: Yes Review of Systems 10-point ROS is otherwise unremarkable Physical Examination - Physical Exam General: Alert, In no apparent distress, Mild distress, Other (Abnormal weight loss) HEENT: Atraumatic, Normocephalic Respiratory: Clear to auscultation bilaterally, Normal air movement Cardiovascular: No edema, Normal pulses, Regular rate/rhythm Capillary refill: <2 Seconds Gastrointestinal: Normal bowel sounds, Hypoactive, Other (Mild diffuse abdominal tenderness) Musculoskeletal: No clubbing, No swelling Integumentary: No rashes, No breakdown - Studies Laboratory Data (last 24 hrs) 01/20/23 01/20/23 19:09 19:09 WBC 5.80 Hgb 16.4 Hct 45.3 Plt Count 278 Sodium 131 L Potassium 3.1 L BUN 13 Creatinine 1.42 H Glucose 202 H Total Bilirubin 1.3 H AST 6 L ALT 20 Alkaline Phosphatase 69 Lipase 25 Assessment and Plan - Plan Assessment plan Abdominal pain likely related to gastroparesis History of gastric ulcers Peptic ulcer disease IV fluids, as needed and antiemetics, as needed analgesics He reports trace recent 60 pound weight loss KUB rule out Constipation Diabetes type 1 Resume appropriate home meds Reports associated abdominal pain possibly related to gastritis.He reports symptoms started 6-7 months ago, He follows Dr. Alix REN. He reports 2 prior endoscopies, one on Thursday. He reports poor p.o. intake. blood glucose 202, Hypokalemia Trend electrolytes replace as needed hypokalemia 3.1, Hyponatremia Gentle IV fluids mild hyponatremia 131 Acute kidney injury Gentle IV fluids, trend kidney function acute kidney injury BUN 13 creatinine 1.42 Diet clear liquids Full code DVT heparin Discharge Plan: Home Plan to discharge in: 24 Hours - Advance Directives Does patient have a Living Will: No Does patient have a Durable POA for Healthcare: No - Code Status/Comfort Care Code Status: Full Code Physician Review: Patient Assessed, Agree with Above Assessment and Plan Critical Care: No Time Spent Managing Pts Care (In Minutes): 50
[2023-01-20] MEDS ORDERED: PANTOPRAZOLE 40 MG INJ ONE (21:21)
[2023-01-20] MEDS ORDERED: PROMETHAZINE INJ 25 MG/ML AMP IV PRN (21:25)
[2023-01-20] MEDS ORDERED: MORPHINE 4 MG/ML SYR ONE (22:23)
[2023-01-20 23:07] VITALS: BMI 22.5
[2023-01-20] MEDS ORDERED: ZOLPIDEM TARTRATE 5 MG TABLET PO PRN (23:07)
[2023-01-20] MEDS ORDERED: ACETAMINOPHEN 500 MG TAB PO PRN (23:07)
[2023-01-20 23:35] VITALS: O2SAT 100
[2023-01-20] MEDS: NA CHLORIDE 0.9% 1,000 ML IV SCH (23:45)
[2023-01-21] MEDS: ONDANSETRON 4 MG/2 ML VIAL IV PRN ×4 (00:52→20:52)
[2023-01-21] MEDS ORDERED: POTASSIUM CL 40 MEQ in NA CHLORIDE 0.9% 500 ML IV SCH (01:00)
[2023-01-21 03:46] LABS: Absolute Lymphocytes (CBC) 3.1 K/uL (0.7-4.9); Hematocrit 35.6 % (39.6-49.0); Lymphocytes % 43.8 % (15.3-44.8); MCV 85.9 fL (80-100); MPV 8.1 fL (7.6-11.3); Platelets 235 thou/uL (152-406); RBC Red Blood Cell Count 4.15 M/uL (4.33-5.43)
[2023-01-21 03:47] LABS: Magnesium 1.7 mg/dL (1.6-2.4); Potassium 3.4 mEq/L (3.5-5.1)
[2023-01-21] MEDS: KCL 20 MEQ/100 mL IVPB 20 MEQ/100 ML BAG IV SCH ×2 (05:30→07:52)
[2023-01-21] MEDS ORDERED: MAGNESIUM SULFATE 1 gm IVPB 1 GM/100 ML BAG IV ONE (09:00)
[2023-01-21] MEDS ORDERED: METOCLOPRAMIDE 10 MG/2mL INJ IV PRN (13:34)
--- NOTE | 2023-01-21 13:46 | P.PN ---
Subjective Date of Service: 01/21/23 Chief Complaint: Abdominal pain Patient reports intractable vomiting. He vomited his clear liquid breakfast. Patient reports 1 month of constipation. Physical Examination - Vital Signs Temperature: 98.1 F Blood Pressure: 124/75 Pulse: 79 Respirations: 16 Pulse Ox (%): 98 - Studies Laboratory Data (last 24 hrs) 01/20/23 01/20/23 19:09 19:09 WBC 5.80 Hgb 16.4 Hct 45.3 Plt Count 278 Sodium 131 L Potassium 3.1 L BUN 13 Creatinine 1.42 H Glucose 202 H Total Bilirubin 1.3 H AST 6 L ALT 20 Alkaline Phosphatase 69 Lipase 25 Assessment And Plan - Plan Physical Exam General: Alert, In no apparent distress, Mild distress, Other (Abnormal weight loss) HEENT: Atraumatic, Normocephalic Respiratory: Clear to auscultation bilaterally, Normal air movement Cardiovascular: No edema, Normal pulses, Regular rate/rhythm Capillary refill: <2 Seconds Gastrointestinal: Normal bowel sounds, Hypoactive, Other (Mild diffuse abdominal tenderness) Musculoskeletal: No clubbing, No swelling Integumentary: No rashes, No breakdown Diagnosis Abdominal pain History of gastric ulcers Peptic ulcer disease Gastroparesis Esophageal ulcer Supportive measures with IV fluid Pain management as needed IV Protonix, oral sucralfate. Start Reglan IV Treat constipation GI consult Functional constipation Patient reports no BM for several weeks Constipation likely related to DM induced autonomic neuropathy. IV Reglan Start stool softness. Diabetes type 1 Aggressive blood sugar control. Aggressive insulin sliding scale for now. Hold Novolin 70/30 until patient is able to keep food in without vomiting. Hypokalemia Trend electrolytes replace as needed Hyponatremia Gentle IV NS Monitor BMP Acute kidney injury MAYUR resolved with IV hydration Monitor renal function due to ongoing vomiting. Diet: clear liquids Full code DVT heparin Discharge Plan: Home
[2023-01-21] MEDS ORDERED: SODIUM CHLORIDE 0.9% 10ML INJ IV PRN (13:52)
--- NOTE | 2023-01-21 14:19 | RAD REPORT ---
EXAM DESCRIPTION: CT - Abdomen Pelvis Wo Contrast - 01/21/2023 1:11 pm CLINICAL HISTORY: abdominal pain COMPARISON: Abdomen Pelvis W Contrast dated 07/29/2022 TECHNIQUE: Thin cut axial CT imaging of the abdomen and pelvis was performed without IV contrast. Mu ltiplanar reformats were generated and reviewed. All CT scans are performed using dose optimization technique as appropriate and may include automated exposure control or mA/KV adjustment according to patient size. FINDINGS: No suspicious findings in the lung bases. The liver, spleen, adrenal glands, and pancreas show no suspicious findings. Gallbladder and biliary tree are also without suspicious finding. Stable mild mesenteric fat stranding and mild prominence of the mesenteric nodes, nonspecific. Symmetric renal contour, without suspicious parenchymal findings within limits of noncontrast techniq ue. No evidence of radiopaque calculi or hydroureteronephrosis. No dilated bowel loops or bowel wall thickening. No free air, free fluid or inflammatory stranding. N o hernia, mass or bulky lymphadenopathy. The urinary bladder is without significant finding. No suspicious bony findings. IMPRESSION: No acute intra-abdominal process. Nonspecific central mesenteric fat stranding is stable, could be idiopathic, or related to infectious or inflammatory etiologies such as mesenteritis, among other etiologies.
[2023-01-21] MEDS: NA CHLORIDE 0.9% 1,000 ML IV SCH ×2 (14:22→20:29)
[2023-01-21] MEDS: MORPHINE 4 MG/ML SYR IV PRN ×2 (14:32→20:52)
[2023-01-21 15:38] LABS: Specific Gravity 1.028 (1.005-1.030); Urine Bacteria None Seen /HPF (<20); Urine Bilirubin NEGATIVE (Negative); Urine Blood Negative (Negative); Urine Clarity Extremely Turbid (Clear); Urine Color Yellow (Yellow); Urine Glucose 2+ (Negative); Urine Mucus 4+ /HPF (None Seen); Urine Protein 2+ (Negative); Urine RBC <5 /HPF (None Seen); Urine Urobilinogen 1+ (Normal); Urine pH 5.5 (5.0-7.0)
[2023-01-21] MEDS: SUCRALFATE 1GM/10ML UCUP PO SCH ×2 (16:23→20:28)
--- NOTE | 2023-01-21 18:03 | RAD REPORT ---
EXAM DESCRIPTION: XR Abdomen, 1 View CLINICAL HISTORY: Abdominal pain TECHNIQUE: Frontal supine view of the abdomen/pelvis. COMPARISON: No relevant prior studies available. FINDINGS: Gastrointestinal tract: Unremarkable. No dilation. Bones/joints: Unremarkable. IMPRESSION: Nonobstructive bowel gas pattern. Electronically signed by: Tyler Rivera MD 01/21/2023 3:42 AM CDT Due to temporary technical issues with the PACS/Fluency reporting system, reports are being signed by the in house radiologists without review as a courtesy to insure prompt reporting. The interpreting radiologist is fully responsible for the content of the report.
[2023-01-21] MEDS: PANTOPRAZOLE 40 MG INJ IVP SCH (20:28)
[2023-01-21] MEDS: POLYETHYL GLY 3350 17 GM/DOSE PO SCH (20:28)
[2023-01-21] MEDS: MINERAL OIL 30 ML UCUP PO SCH (20:28)
[2023-01-22 03:12] LABS: Absolute Lymphocytes (CBC) 4.3 K/uL (0.7-4.9); Hematocrit 32.9 % (39.6-49.0); Lymphocytes % 48.7 % (15.3-44.8); MCV 87.1 fL (80-100); MPV 8.3 fL (7.6-11.3); Platelets 207 thou/uL (152-406); RBC Red Blood Cell Count 3.77 M/uL (4.33-5.43)
[2023-01-22 03:36] LABS: Potassium 3.4 mEq/L (3.5-5.1)
[2023-01-22] MEDS: NA CHLORIDE 0.9% 1,000 ML IV SCH (05:51)
[2023-01-22] MEDS: PANTOPRAZOLE 40 MG INJ IVP SCH ×2 (08:52→19:59)
[2023-01-22] MEDS: ONDANSETRON 4 MG/2 ML VIAL IV PRN ×2 (08:52→13:30)
[2023-01-22] MEDS: SUCRALFATE 1GM/10ML UCUP PO SCH ×4 (08:53→19:59)
[2023-01-22] MEDS: POLYETHYL GLY 3350 17 GM/DOSE PO SCH ×2 (08:54→20:00)
[2023-01-22] MEDS: MINERAL OIL 30 ML UCUP PO SCH ×2 (08:54→09:00)
[2023-01-22] MEDS ORDERED: MAGNESIUM CITRATE 300 ML BOT PO ONE (11:15)
--- NOTE | 2023-01-22 14:04 | P.PN ---
Subjective Date of Service: 01/22/23 Chief Complaint: Abdominal pain Patient states he has been vomiting after meals. No BM yet. Physical Examination - Vital Signs Temperature: 98.4 F Blood Pressure: 137/85 Pulse: 80 Respirations: 16 Pulse Ox (%): 100 - Studies Laboratory Data (last 24 hrs) 01/22/23 01/22/23 02:01 02:01 WBC 8.80 Hgb 11.9 L D Hct 32.9 L Plt Count 207 Sodium 136 Potassium 3.4 L BUN 10 Creatinine 1.12 Glucose 137 H Assessment And Plan - Plan Physical Exam General: Alert, In no apparent distress. HEENT: Atraumatic, Normocephalic Respiratory: Clear to auscultation bilaterally, Normal air movement Cardiovascular: No edema, Normal pulses, Regular rate/rhythm Gastrointestinal: Normal bowel sounds, Hypoactive. Nontender. Musculoskeletal: No clubbing, No swelling Integumentary: No rashes, No breakdown Diagnosis Abdominal pain History of gastric ulcers Peptic ulcer disease Gastroparesis Esophageal ulcer Supportive measures with IV fluid Pain management as needed IV Protonix, oral sucralfate. Continue IV Reglan Treat constipation-trial of magnesium citrate. No GI available till next week. Functional constipation Patient reports no BM for several weeks Constipation likely related to DM induced autonomic neuropathy. Continue IV Reglan Stool softness. Trial of mag citrate Diabetes type 1 Aggressive blood sugar control. Aggressive insulin sliding scale for now. Hold Novolin 70/30 until patient is able to keep food in without vomiting. Hypokalemia Trend electrolytes replace as needed Hyponatremia Gentle IV NS Monitor BMP Acute kidney injury MAYUR resolved with IV hydration Monitor renal function due to ongoing vomiting. Diet: clear liquids Full code DVT heparin Discharge Plan: Home
[2023-01-22] MEDS: MORPHINE 4 MG/ML SYR IV PRN (17:57)
[2023-01-22] MEDS: METOCLOPRAMIDE 10 MG/2mL INJ IV SCH (17:57)
[2023-01-22] MEDS: ENSURE HIGH PROTEIN 237 ML CAN PO SCH (20:02)
[2023-01-23] MEDS: METOCLOPRAMIDE 10 MG/2mL INJ IV SCH ×4 (00:25→17:45)
[2023-01-23] MEDS: NA CHLORIDE 0.9% 1,000 ML IV SCH ×3 (01:07→17:44)
[2023-01-23 03:30] LABS: Absolute Lymphocytes (CBC) 2.4 K/uL (0.7-4.9); Hematocrit 31.4 % (39.6-49.0); Lymphocytes % 30.5 % (15.3-44.8); MCV 87.2 fL (80-100); MPV 8.3 fL (7.6-11.3); Platelets 203 thou/uL (152-406)
[2023-01-23 03:47] LABS: Albumin 2.8 g/dL (3.4-5.0); Bilirubin Total 0.5 mg/dL (0.2-1.0); Potassium 3.4 mEq/L (3.5-5.1); Protein, Total 5.4 g/dL (6.4-8.2)
[2023-01-23] MEDS ORDERED: POTASSIUM CL SA 10 MEQ TAB PO ONE (08:00)
[2023-01-23] MEDS: POLYETHYL GLY 3350 17 GM/DOSE PO SCH ×2 (09:00→21:00)
[2023-01-23] MEDS: ENSURE HIGH PROTEIN 237 ML CAN PO SCH ×2 (09:00→21:00)
[2023-01-23] MEDS: SUCRALFATE 1GM/10ML UCUP PO SCH ×4 (09:27→20:25)
[2023-01-23] MEDS: PANTOPRAZOLE 40 MG INJ IVP SCH ×2 (09:28→20:25)
--- NOTE | 2023-01-23 15:00 | P.PN ---
Subjective Date of Service: 01/23/23 Chief Complaint: Abdominal pain Patient states he had a small bowel movement this morning. He reports nausea but stated he was able to retain his breakfast today though poor oral intake. Physical Examination - Vital Signs Temperature: 97.4 F Blood Pressure: 132/78 Pulse: 84 Respirations: 17 Pulse Ox (%): 99 Assessment And Plan - Plan Physical Exam General: Alert, In no apparent distress. HEENT: Atraumatic, Normocephalic Respiratory: Clear to auscultation bilaterally, Normal air movement Cardiovascular: No edema, Normal pulses, Regular rate/rhythm Gastrointestinal: Normal bowel sounds, Hypoactive. Nontender. Musculoskeletal: No clubbing, No swelling Integumentary: No rashes, No breakdown Diagnosis Abdominal pain History of gastric ulcers Peptic ulcer disease Gastroparesis Esophageal ulcer Supportive measures with IV fluid Pain management as needed IV Protonix, oral sucralfate. Scheduled IV Reglan Treat constipation-trial of magnesium citrate. No GI available till next week. Initiated transfer to tertiary center for GI input. Awaiting bed availability. Functional constipation Patient had small bowel movement today Constipation likely related to DM induced autonomic neuropathy. Continue scheduled IV Reglan Patient refused laxatives. Diabetes type 1 Aggressive blood sugar control. Aggressive insulin sliding scale for now. Hold Novolin 70/30 until patient is able to keep food in without vomiting. Hypokalemia Trend electrolytes and replace as needed Hyponatremia Hyponatremia resolved Gentle IV NS Monitor BMP Acute kidney injury MAYUR resolved with IV hydration Monitor renal function due to ongoing vomiting. Diet: clear liquids Full code DVT heparin Discharge Plan: Home
[2023-01-23] MEDS: MORPHINE 4 MG/ML SYR IV PRN (20:26)
[2023-01-24] MEDS: METOCLOPRAMIDE 10 MG/2mL INJ IV SCH ×2 (00:45→05:30)
[2023-01-24] MEDS: NA CHLORIDE 0.9% 1,000 ML IV SCH (00:45)
[2023-01-24] MEDS: MORPHINE 4 MG/ML SYR IV PRN ×2 (02:40→09:38)
[2023-01-24] MEDS: SUCRALFATE 1GM/10ML UCUP PO SCH (07:30)
[2023-01-24 08:42] VITALS: BP 144/87; TEMP 97.6
[2023-01-24] MEDS: ENSURE HIGH PROTEIN 237 ML CAN PO SCH (09:00)
[2023-01-24] MEDS: ONDANSETRON 4 MG/2 ML VIAL IV PRN (09:38)
[2023-01-24] MEDS: PANTOPRAZOLE 40 MG INJ IVP SCH (09:39)
--- NOTE | 2023-01-24 12:50 | P.DS ---
Admission Date: 01/22/23 Discharge Date: 01/24/23 Reason for Admission: Abdominal pain Brief History of Present Illness: 33-year-old -British male with a past medical history of peptic ulcer disease, gastric ulcer, diabetes presented to the emergency room with nausea and vomiting. Symptoms associated with abdominal pain. He reported symptoms started 6-7 months ago, He follows Dr. Alix REN. He reports 2 prior endoscopies, most recent 1 week ago. He reported constant vomiting, unable to retain any food or drink. He denied diarrhea, and reported 1 month of constipation. Laboratory evaluation CBC unremarkable mild hyponatremia 131 mild hypokalemia 3.1, acute kidney injury BUN 13 creatinine 1.42, blood glucose 202. Patient was treated with normal saline, Pepcid, Zofran, Toradol for pain. He was admitted for further management. Hospital Course: Patient admitted to the medical floor and the following medical problems addressed: Diagnosis Abdominal pain History of gastric ulcers Peptic ulcer disease Gastroparesis Esophageal ulcer Patient treated with supportive measures with IV fluid Pain management as needed Placed on IV Protonix, oral sucralfate. Scheduled IV Reglan No GI available. Patient now able to retain food but still vomiting intermittently. Transfer initiated, patient accepted to [facility] for further management and to be seen by GI. Functional constipation Patient had small bowel movement today Constipation likely related to DM induced autonomic neuropathy. Treated with scheduled IV Reglan Patient refused laxatives. Diabetes type 1 Aggressive blood sugar control. Managed with aggressive insulin sliding scale. Novolin 70/30 was on hold until patient is able to keep food in without vomiting. Hypokalemia Trended electrolytes and replace as needed Hyponatremia Hyponatremia resolved Treated with gentle IV hydration. Monitor BMP Acute kidney injury MAYUR resolved with IV hydration Vital Signs/Physical Exam: Temp Pulse Resp BP Pulse Ox 97.6 F 68 16 144/87 H 100 01/24/23 08:00 01/24/23 08:00 01/24/23 08:00 01/24/23 08:00 01/24/23 08:00 General: Alert, In no apparent distress HEENT: Mucous membr. moist/pink Neck: JVD not distended Respiratory: Clear to auscultation bilaterally, Normal air movement Cardiovascular: No edema, Regular rate/rhythm, Normal S1 S2 Gastrointestinal: Soft and benign, Non-distended, Tenderness (Mild epigastric tenderness.) Laboratory Data at Discharge: WBC 8.00 thou/uL (4.3-10.9) 01/23/23 01:59 Hgb 11.3 g/dL (13.6-17.9) L 01/23/23 01:59 Hct 31.4 % (39.6-49.0) L 01/23/23 01:59 Plt Count 203 thou/uL (152-406) 01/23/23 01:59 Sodium 137 mEq/L (136-145) 01/23/23 01:59 Potassium 4.1 mEq/L (3.5-5.1) D 01/23/23 15:25 BUN 4 mg/dL (7-18) L 01/23/23 01:59 Creatinine 0.99 mg/dL (0.70-1.30) 01/23/23 01:59 Glucose 158 mg/dL (74-106) H 01/23/23 01:59 Magnesium 1.7 mg/dL (1.6-2.4) 01/21/23 02:31 Total Bilirubin 0.5 mg/dL (0.2-1.0) 01/23/23 01:59 AST 18 U/L (15-37) 01/23/23 01:59 ALT 22 U/L (16-61) 01/23/23 01:59 Alkaline Phosphatase 49 U/L (45-117) 01/23/23 01:59 Lipase 25 U/L (13-75) 01/20/23 19:09 Home Medications: Alcohol Antiseptic Pads [Alcohol Prep Pads] 1 each BID #1 box 06/01/22 Blood Sugar Diagnostic [Blood Glucose Test Strip] 1 each BID #30 strip 06/01/22 Blood-Glucose Meter [Blood Glucose Monitoring] 1 each BID #1 kit 06/01/22 Insulin 70/30 NPH/Reg Human [Novolin 70/30*] 20 unit SQ Q12H #15 ml 06/01/22 Lancets [Lancets Thin] 1 each BID #1 box 06/01/22 Metformin HCl [Glucophage*] 500 mg PO BIDWM 06/01/22 Pen Needle, Diabetic [Pen Needle] 1 each BID #1 box 06/01/22 Pantoprazole [Protonix Tab*] 40 mg PO BIDAC #60 tab 08/04/22 Sucralfate [Carafate*] 10 ml PO ACHS #1000 ml 08/04/22 Ensure High Protein 237 ml PO BID can 01/24/23 Metoclopramide [Reglan*] 10 mg IV Q6H vial 01/24/23 Pantoprazole Inj [Protonix IV*] 40 mg IVP Q12HR vial 01/24/23 Polyethyl Gly 3350 [Glycolax*] 17 gm PO BID udbot 01/24/23 Followup: Naun Whittaker MD [Primary Care Provider] - Time spent managing pt's care (in minutes): 33
== END 2023-01-24 14:27 | disposition home or self-care (01) | DRG 74 ==
LOC: ER 17:37 → 2ND 21:14 → OBSVTOIN 01-22 12:10
PROVIDERS: ADMIT Internal Medicine; ATTEND Internal Medicine
DX: E10.43 Type 1 diabetes mellitus with diabetic autonomic (poly)neuropathy (principal); N17.9 Acute kidney failure, unspecified; E87.1 Hypo-osmolality and hyponatremia; K22.10 Ulcer of esophagus without bleeding; K31.84 Gastroparesis; E87.6 Hypokalemia; K59.04 Chronic idiopathic constipation; K21.9 Gastro-esophageal reflux disease without esophagitis; K27.9 Peptic ulcer, site unspecified, unspecified as acute or chronic, without hemorrhage or perforation; Z79.4 Long term (current) use of insulin; Z79.84 Long term (current) use of oral hypoglycemic drugs; Z28.310 Unvaccinated for COVID-19; Z79.899 Other long term (current) drug therapy
CPT/HCPCS: 36415; 74018; 74176; 80048; 80053; 81001; 82947; 83690; 83735; 84132; 85025; 96361; 96374; 96375; 99285; C9113; G0378; J2405; J2765; J3475; J3480; J7030

== ENCOUNTER → 2023-05-20 | Emergency (ER) | payer OTHER ==
[~2023-05-20] MED LIST: DIPHENHYDRAMINE 50 MG/ML VIAL ONE; FAMOTIDINE 20 MG/2 ML VIAL IV ONE; MAGNES/ALUMIN/SIMET 30ML UCUP ONE; METOCLOPRAMIDE 10 MG/2mL INJ ONE; NA CHLORIDE 0.9% 1,000 ML ONE
[2023-05-20 10:01] LABS: Absolute Lymphocytes (CBC) 1.6 K/uL (0.7-4.9); Hematocrit 49.9 % (39.6-49.0); Lymphocytes % 11.2 % (15.3-44.8); MCV 90.4 fL (80-100); Platelets 312 thou/uL (152-406); RBC Red Blood Cell Count 5.52 M/uL (4.33-5.43)
[2023-05-20 11:32] LABS: Potassium 3.6 mEq/L (3.5-5.1); Protein, Total 8.3 g/dL (6.4-8.2)
--- NOTE | 2023-05-20 12:28 | ER ---
Nurse's Notes [facility] Name: Cecile Miranda Age: 33 yrs Sex: Male : 1990 Arrival Date: 05/20/2023 Time: 09:01 Bed 13 Private MD: Diagnosis: Nausea with vomiting, unspecified Presentation: 05/20 09:20 Chief complaint: Patient states: N/V for 3 days. Coronavirus screen: Client denies ll1 travel out of the [place] in the last 14 days. At this time, the client does not indicate any symptoms associated with coronavirus-19. Ebola Screen: Patient denies travel to an Ebola-affected area in the 21 days before illness onset. Initial Sepsis Screen: Does the patient meet any 2 criteria? No. Patient's initial sepsis screen is negative. Does the patient have a suspected source of infection? No. Patient's initial sepsis screen is negative. Risk Assessment: Do you want to hurt yourself or someone else? Patient reports no desire to harm self or others. Onset of symptoms was May 18, 2023. 09:20 Method Of Arrival: Ambulatory 1 09:20 Acuity: CARLOS 3 ll1 Historical: - Allergies: 09:20 No Known Allergies; ll1 - PMHx: 09:20 diabetes mellitus; h. pylori; ULCER; ll1 - Immunization history:: Adult Immunizations up to date. - Social history:: Smoking status: Patient denies any tobacco usage or history of. - Family history:: not pertinent. Screenin:[address] [facility] ED Fall Risk Assessment (Adult) History of falling in the last 3 months, kc6 including since admission No falls in past 3 months (0 pts) Confusion or Disorientation No (0 pts) Intoxicated or Sedated No (0 pts) Impaired Gait No (0 pts) Mobility Assist Device Used No (0 pt) Altered Elimination No (0 pt) Score/Fall Risk Level 0 - 2 = Low Risk. Abuse screen: Denies threats or abuse. Denies injuries from another. Nutritional screening: No deficits noted. Tuberculosis screening: No symptoms or risk factors identified. Assessment: 10:05 General: Appears in no apparent distress. comfortable, well groomed, well developed, kc6 Behavior is calm, cooperative, appropriate for age, quiet. Pain: Denies pain. Neuro: Level of Consciousness is awake, alert, obeys commands, Oriented to person, place, time, situation, Appropriate for age. Cardiovascular: Capillary refill < 3 seconds. Respiratory: Airway is patent Trachea midline Respiratory effort is even, unlabored, Respiratory pattern is regular, symmetrical. GI: Abdomen is flat, non-distended, Bowel sounds present X 4 quads. Abd is soft and non tender X 4 quads. Reports nausea, vomiting, Patient currently denies abdominal pain, constipation, diarrhea. : No signs and/or symptoms were reported regarding the genitourinary system. EENT: No signs and/or symptoms were reported regarding the EENT system. Derm: No signs and/or symptoms reported regarding the dermatologic system. Skin is intact, is healthy with good turgor, Skin is pink, warm \T\ dry. Musculoskeletal: No signs and/or symptoms reported regarding the musculoskeletal system. Circulation, motion, and sensation intact. Capillary refill < 3 seconds, Range of motion: intact in all extremities. 10:54 Reassessment: Patient appears in no apparent distress at this time. No changes from kc6 previously documented assessment. Patient and/or family updated on plan of care and expected duration. Pain level reassessed. Patient is alert, oriented x 3, equal unlabored respirations, skin warm/dry/pink. 11:43 Reassessment: Patient appears in no apparent distress at this time. No changes from kc6 previously documented assessment. Patient and/or family updated on plan of care and expected duration. Pain level reassessed. Patient is alert, oriented x 3, equal unlabored respirations, skin warm/dry/pink. Vital Signs: 09:20 BP 138 / 91; Pulse 69; Resp 17; Temp 98.5; Pulse Ox 100% on R/A; Pain 0/10; ll1 10:54 BP 134 / 83; Pulse 106; Resp 16 S; Pulse Ox 100% on R/A; kc6 11:44 BP 127 / 82; Pulse 99; Resp 18 S; Pulse Ox 100% on R/A; kc6 09:20 Pain Scale: Adult ll1 ED Course: 09:03 Patient arrived in ED. rg4 09:05 Luis Jimenez MD is Attending Physician. rt 09:19 Alisa Gould RN is Primary Nurse. kc6 09:20 Arm band placed on Patient placed in an exam room, on a stretcher. ll1 09:22 Triage completed. ll1 10:00 Inserted saline lock: 22 gauge in right forearm, using aseptic technique. ll1 10:05 Patient has correct armband on for positive identification. Bed in low position. Call kc6 light in reach. Side rails up X 1. Client placed on continuous cardiac and pulse oximetry monitoring. NIBP monitoring applied. 10:05 Patient maintains SpO2 saturation greater than 95% on room air. kc6 11:07 Inserted saline lock: 22 gauge in left forearm, using aseptic technique. Blood ld1 collected. Missed attempt(s): 22 gauge in left antecubital area. 12:27 Steven Guerrero MD is Referral Physician. rt 12:42 Provided Education on: follow up with GI. ld1 12:42 No provider procedures requiring assistance completed. IV discontinued, intact, ld1 bleeding controlled, No redness/swelling at site. Pressure dressing applied. Administered Medications: 10:08 Drug: NS 0.9% IV 1000 ml IV at 1 bolus Per protocol; 1000 mL bolus Route: IV; Rate: 1 kc6 bolus; Site: right forearm; 12:42 Follow up: Response: No adverse reaction; IV Status: Completed infusion; IV Intake: ld1 1000ml 10:08 Drug: Famotidine IVP 20 mg IVP once; dilute with 10 mL 0.9% NaCl; give over 2 minutes kc6 Route: IVP; Site: right forearm; 10:55 Follow up: Response: No adverse reaction kc6 10:08 Drug: Alum-Mag Hydroxide-Simeth PO Suspension (200 mg-200 mg-20 mg/5 mL) 30 ml PO once kc6 Route: PO; 10:55 Follow up: Response: No adverse reaction kc6 10:08 Drug: metoCLOPramide IVP 10 mg IVP once; over 1 to 2 minutes Route: IVP; Site: right kc6 forearm; 10:55 Follow up: Response: No adverse reaction; Nausea is decreased; Vomiting decreased kc6 10:09 Drug: diphenhydrAMINE IVP 25 mg IVP once Route: IVP; Site: right forearm; kc6 10:55 Follow up: Response: No adverse reaction kc6 Medication: 12:42 VIS not applicable for this client. ld1 Intake: 12:42 IV: 1000ml; Total: 1000ml. ld1 Outcome: 12:27 Discharge ordered by . rt 12:42 Discharged to home ambulatory, ld1 12:42 Condition: stable 12:42 Discharge instructions given to patient, Instructed on discharge instructions, follow up and referral plans. medication usage, Demonstrated understanding of instructions, follow-up care, medications, Prescriptions given X 1, 12:43 Patient left the ED. ld1 Signatures: Annie Lim rg4 Panfilo Perkins RN RN ll1 Loly Hameed RN RN ld1 Alisa Gould RN RN kc6 Luis Jimenez MD MD rt
--- NOTE | 2023-05-20 12:28 | EDPHYS ---
Physician Documentation [facility] Name: Cecile Miranda Age: 33 yrs Sex: Male : 1990 Arrival Date: 05/20/2023 Time: 09: Bed 13 Private MD: ED Physician Luis Jimenez HPI: 05/20 09:24 This 33 yrs old Black Male presents to ER via Ambulatory with complaints of Nausea. rt 09:24 Patient presents to the ED with nausea for about the past 3 days. He has had episodes rt of vomiting, but denies any abdominal pain. Patient has had multiple episodes over the past few years. States has been doing well over the past several months. Denies other acute complaints at this time, symptoms are moderate in severity, no other aggravating alleviating factors.. Historical: - Allergies: 09:20 No Known Allergies; ll1 - PMHx: 09:20 diabetes mellitus; h. pylori; ULCER; ll1 - Immunization history:: Adult Immunizations up to date. - Social history:: Smoking status: Patient denies any tobacco usage or history of. - Family history:: not pertinent. ROS: 09:24 Constitutional: Negative for fever, chills, and weight loss, Cardiovascular: Negative rt for chest pain, palpitations, and edema, Respiratory: Negative for shortness of breath, cough, wheezing, and pleuritic chest pain, MS/Extremity: Negative for injury and deformity, Skin: Negative for injury, rash, and discoloration, Neuro: Negative for headache, weakness, numbness, tingling, and seizure, Psych: Negative for depression, anxiety, suicide ideation, homicidal ideation, and hallucinations, 09:24 Abdomen/GI: Positive for nausea and vomiting, Negative for abdominal pain, Exam: 09:24 Constitutional: This is a well developed, well nourished patient who is awake, alert, rt and in no acute distress. Head/Face: Normocephalic, atraumatic. Chest/axilla: Normal chest wall appearance and motion. Nontender with no deformity. No lesions are appreciated. Cardiovascular: Regular rate and rhythm with a normal S1 and S2. No gallops, murmurs, or rubs. Normal PMI, no JVD. No pulse deficits. Respiratory: Lungs have equal breath sounds bilaterally, clear to auscultation and percussion. No rales, rhonchi or wheezes noted. No increased work of breathing, no retractions or nasal flaring. Abdomen/GI: Soft, non-tender, with normal bowel sounds. No distension or tympany. No guarding or rebound. No evidence of tenderness throughout. MS/ Extremity: Pulses equal, no cyanosis. Neurovascular intact. Full, normal range of motion. Neuro: Awake and alert, GCS 15, oriented to person, place, time, and situation. Cranial nerves II-XII grossly intact. Motor strength 5/5 in all extremities. Sensory grossly intact. Cerebellar exam normal. Normal gait. Psych: Awake, alert, with orientation to person, place and time. Behavior, mood, and affect are within normal limits. Vital Signs: 09:20 BP 138 / 91; Pulse 69; Resp 17; Temp 98.5; Pulse Ox 100% on R/A; Pain 0/10; ll1 10:54 BP 134 / 83; Pulse 106; Resp 16 S; Pulse Ox 100% on R/A; kc6 11:44 BP 127 / 82; Pulse 99; Resp 18 S; Pulse Ox 100% on R/A; kc6 09:20 Pain Scale: Adult ll1 MDM: 09:17 Patient medically screened. rt 12:31 Differential diagnosis:. rt 12:33 Differential diagnosis: Nausea, vomiting, gastroparesis, gastritis. Data reviewed: rt vital signs, nurses notes, lab test result(s). Consideration of Admission/Observation Escalation of care including admission/observation considered. Only mildly elevated creatinine, CO2 is unremarkable. After fluids, nausea meds, patient is p.o. tolerant, symptoms have resolved. No indications for admission at this time.. I considered the following discharge prescriptions or medication management in the emergency department Medications were administered in the Emergency Department. See MAR. Test considered but Not performed: CT: Benign abdominal examination, low suspicion for acute surgical pathology, CT scan not dictated. Care significantly affected by the following chronic conditions: Diabetes. Counseling: I had a detailed discussion with the patient and/or guardian regarding the historical points, exam findings, and any diagnostic results supporting the discharge/admit diagnosis, lab results, the need for outpatient follow up, to return to the emergency department if symptoms worsen or persist or if there are any questions or concerns that arise at home. Response to treatment: the patient's symptoms have markedly improved after treatment. 05/20 09:24 Order name: CBC with Diff; Complete Time: 11:25 rt 05/20 09:24 Order name: CMP; Complete Time: 11:33 rt 05/20 09:24 Order name: Lipase; Complete Time: 11:33 rt 05/20 09:24 Order name: IV Saline Lock; Complete Time: 10:03 rt 05/20 09:24 Order name: Labs collected and sent; Complete Time: 10:03 rt 05/20 10:05 Order name: Labs - recollect needed; Complete Time: 11:03 ds4 Administered Medications: 10:08 Drug: NS 0.9% IV 1000 ml IV at 1 bolus Per protocol; 1000 mL bolus Route: IV; Rate: 1 kc6 bolus; Site: right forearm; 12:42 Follow up: Response: No adverse reaction; IV Status: Completed infusion; IV Intake: ld1 1000ml 10:08 Drug: Famotidine IVP 20 mg IVP once; dilute with 10 mL 0.9% NaCl; give over 2 minutes kc6 Route: IVP; Site: right forearm; 10:55 Follow up: Response: No adverse reaction kc6 10:08 Drug: Alum-Mag Hydroxide-Simeth PO Suspension (200 mg-200 mg-20 mg/5 mL) 30 ml PO once kc6 Route: PO; 10:55 Follow up: Response: No adverse reaction kc6 10:08 Drug: metoCLOPramide IVP 10 mg IVP once; over 1 to 2 minutes Route: IVP; Site: right kc6 forearm; 10:55 Follow up: Response: No adverse reaction; Nausea is decreased; Vomiting decreased kc6 10:09 Drug: diphenhydrAMINE IVP 25 mg IVP once Route: IVP; Site: right forearm; kc6 10:55 Follow up: Response: No adverse reaction kc6 Disposition Summary: 05/20/23 12:27 Discharge Ordered Notes: Location: Home rt Problem: an ongoing problem rt Symptoms: have improved rt Condition: Stable rt Diagnosis - Nausea with vomiting, unspecified rt Followup: rt - With: Steven Guerrero MD - When: 5 - 6 days - Reason: Discharge Instructions: - Discharge Summary Sheet rt - Nausea and Vomiting, Adult rt Forms: - Work release form rt - Medication Reconciliation Form rt - Thank You Letter rt - Antibiotic Education rt - Prescription Opioid Use rt - Patient Portal Instructions rt - Leadership Thank You Letter rt Prescriptions: - Reglan 10 mg Oral tablet - take 1 tablet ORAL route every 6 hours as needed for nausea; 30 tablet; rt Refills: 0, Product Selection Permitted Signatures: Dispatcher [employer] Alec Noel ds4 Panfilo Perkins RN RN ll1 Alisa Gould RN RN kc6 Luis Jimenez MD MD rt Loly Hameed RN ld1
[2023-05-20 12:52] VITALS: BP 127/82; TEMP 98.5; O2SAT 100
== END ==
LOC: ER 09:01
DX: R11.2 Nausea with vomiting, unspecified (principal); E11.9 Type 2 diabetes mellitus without complications
CPT/HCPCS: 85025; 36415; 83690; 80053; J2765; J1200; J7030

== ENCOUNTER 2023-05-24 08:27 | Inpatient (IN) | payer OTHER ==
[2023-05-24] MEDS ORDERED: NA CHLORIDE 0.9% 1,000 ML ONE ×2 (09:05→22:29)
[2023-05-24] MEDS ORDERED: ONDANSETRON 4 MG/2 ML VIAL ONE (09:05)
[2023-05-24] MEDS ORDERED: FAMOTIDINE 20 MG/2 ML VIAL IV ONE (09:05)
[2023-05-24 09:32] LABS: Hematocrit 53.9 % (39.6-49.0); Lymphocytes % 24.3 % (15.3-44.8); MCV 90.2 fL (80-100); Platelets 294 thou/uL (152-406); RBC Red Blood Cell Count 5.97 M/uL (4.33-5.43)
[2023-05-24 09:49] LABS: Albumin 3.9 g/dL (3.4-5.0); Bilirubin Total 1.1 mg/dL (0.2-1.0); Potassium 3.8 mEq/L (3.5-5.1); Protein, Total 8.4 g/dL (6.4-8.2)
--- NOTE | 2023-05-24 10:31 | RAD REPORT ---
EXAM DESCRIPTION: CTAbdomen Pelvis Wo Contrast - 05/24/2023 10:17 am CLINICAL HISTORY: vomiting COMPARISON: Abdomen Pelvis Wo Contrast dated 01/21/2023; Abdomen Pelvis W Contrast dated 07/30/19 TECHNIQUE: CT of the abdomen and pelvis was performed. All CT scans are performed using dose optimization technique as appropriate and may include automated exposure control or mA/KV adjustment according to patient size. FINDINGS: Lower chest: No acute abnormality. Moderately thickened distal esophagus. Liver: No acute abnormality or suspicious lesions. Biliary: No biliary ductal dilatation. Stomach: No significant focal abnormality. Duodenum: No significant focal abnormality. Pancreas: No significant abnormality. Spleen: No significant abnormality. Adrenal: No suspicious lesions. Kidney/ureter: No hydronephrosis. No renal calculi. Retroperitoneum: No retroperitoneal adenopathy. Vascular: No aneurysm. Bowel: No significant focal abnormality. Normal appendix . Peritoneum: No ascites or free air. Bladder: Grossly unremarkable. Reproductive: No adnexal masses. Bones: No acute fracture. Other: n/a IMPRESSION: No acute intra-abdominal or pelvic finding. Esophagitis. Endoscopy could better evaluate . Normal appendix. No urinary tract calculi.
[2023-05-24 11:14] LABS: Specific Gravity > 1.030 (1.005-1.030); Urine Bacteria None Seen /HPF (<20); Urine Bilirubin NEGATIVE (Negative); Urine Blood Trace (Negative); Urine Clarity Clear (Clear); Urine Color Light-Yellow (Yellow); Urine Glucose 4+ (Over) (Negative); Urine Mucus Slight /HPF (None Seen); Urine Protein 2+ (Negative); Urine RBC <5 /HPF (None Seen); Urine Urobilinogen Normal (Normal); Urine pH 5.5 (5.0-7.0)
[2023-05-24 11:31] LABS: Blood Gas Oxyhemoglobin 69.9 % (94-97); Blood O2 Saturation 72.2 % (92-98.5)
--- NOTE | 2023-05-24 12:56 | ER ---
Nurse's Notes [facility] Name: Cecile Miranda Jr Age: 33 yrs Sex: Male : 1990 Arrival Date: 05/24/2023 Time: 08:27 Bed 15 Private MD: Diagnosis: Nausea with vomiting, unspecified;Other specified diabetes mellitus with ketoacidosis Presentation: 05/24 08:46 Chief complaint: N/V x 3 days. Not tolerating fluids/meds. Coronavirus screen: Client hb presents with at least one sign or symptom that may indicate coronavirus-19. Provider contacted for isolation considerations. Ebola Screen: No symptoms or risks identified at this time. Initial Sepsis Screen: Does the patient meet any 2 criteria? No. Patient's initial sepsis screen is negative. Does the patient have a suspected source of infection? No. Patient's initial sepsis screen is negative. Risk Assessment: Do you want to hurt yourself or someone else? Patient reports no desire to harm self or others. Onset of symptoms was May 22, 2023. 08:46 Method Of Arrival: Wheelchair hb 08:46 Acuity: CARLOS 3 hb Historical: - Allergies: 08:48 No Known Allergies; hb - Home Meds: 08:48 metformin 500 mg Oral tablet 2 times per day [Active]; Novolin 70/30 [place] Sub-Q 20 hb unit twice a day [Active]; omeprazole 40 mg Oral capsule 2 times per day [Active]; Promethazine Oral [Active]; Zofran Oral [Active]; - PMHx: 08:48 diabetes mellitus; h. pylori; ULCER; hb - Immunization history:: Adult Immunizations up to date. - Social history:: Smoking status: Patient denies any tobacco usage or history of. - Family history:: not pertinent. Screenin:34 [facility] ED Fall Risk Assessment (Adult) History of falling in the last 3 months, ko1 including since admission No falls in past 3 months (0 pts) Confusion or Disorientation No (0 pts) Intoxicated or Sedated No (0 pts) Impaired Gait No (0 pts) Mobility Assist Device Used No (0 pt) Altered Elimination No (0 pt) Score/Fall Risk Level 0 - 2 = Low Risk Oriented to surroundings, Maintained a safe environment, Educated pt \T\ family on fall prevention, incl call for assistance when getting out of bed, Assessed \T\ reinforced patient's understanding of fall precautions, Provided non-skid footwear, Hourly rounding (assess needs \T\ fall precautionary measures) done, Used ambulatory aids as needed (educated on \T\ assisted with), Used gait belt as appropriate. Abuse screen: Denies threats or abuse. Denies injuries from another. Nutritional screening: No deficits noted. Tuberculosis screening: No symptoms or risk factors identified. Assessment: 09:34 Pain: Complains of pain in abdomen. GI: Abdomen is non-distended, Pt is actively ko1 vomiting bile, clear fluid. 10:50 Reassessment: Patient appears in no apparent distress at this time. Patient and/or nj1 family updated on plan of care and expected duration. Pain level reassessed. Patient is alert, oriented x 3, equal unlabored respirations, skin warm/dry/pink. 11:27 Reassessment: Patient appears in no apparent distress at this time. Patient and/or nj1 family updated on plan of care and expected duration. Pain level reassessed. Patient is alert, oriented x 3, equal unlabored respirations, skin warm/dry/pink. 13:00 Reassessment: Pharmacy to bring insulin gtt. nj1 13:13 Reassessment: Patient appears in no apparent distress at this time. Patient and/or nj1 family updated on plan of care and expected duration. Pain level reassessed. Patient is alert, oriented x 3, equal unlabored respirations, skin warm/dry/pink. 14:36 Reassessment: Patient appears in no apparent distress at this time. Patient and/or nj1 family updated on plan of care and expected duration. Pain level reassessed. Patient is alert, oriented x 3, equal unlabored respirations, skin warm/dry/pink. 15:27 Reassessment: Patient appears in no apparent distress at this time. Patient and/or nj1 family updated on plan of care and expected duration. Pain level reassessed. Patient is alert, oriented x 3, equal unlabored respirations, skin warm/dry/pink. 16:40 Reassessment: Patient appears in no apparent distress at this time. Patient and/or nj1 family updated on plan of care and expected duration. Pain level reassessed. Patient is alert, oriented x 3, equal unlabored respirations, skin warm/dry/pink. 17:47 Reassessment: Patient appears in no apparent distress at this time. Patient and/or nj1 family updated on plan of care and expected duration. Pain level reassessed. Patient is alert, oriented x 3, equal unlabored respirations, skin warm/dry/pink. 18:36 Reassessment: Patient appears in no apparent distress at this time. Patient and/or nj1 family updated on plan of care and expected duration. Pain level reassessed. Patient is alert, oriented x 3, equal unlabored respirations, skin warm/dry/pink. 19:00 General: Appears in no apparent distress. comfortable, well groomed, well developed, pf1 Behavior is calm, cooperative, appropriate for age, quiet. 19:00 Pain: Denies pain. Neuro: No deficits noted. Level of Consciousness is awake, alert, pf1 obeys commands, Oriented to person, place, time, situation. Cardiovascular: No deficits noted. Capillary refill < 3 seconds Patient's skin is warm and dry. Respiratory: No deficits noted. Airway is patent Respiratory effort is even, unlabored, Respiratory pattern is regular, symmetrical. GI: Abdomen is flat, non-distended, Bowel sounds present X 4 quads. Abd is soft and non tender X 4 quads. Reports vomiting. : No deficits noted. No signs and/or symptoms were reported regarding the genitourinary system. EENT: No deficits noted. No signs and/or symptoms were reported regarding the EENT system. 20:00 Reassessment: Patient appears in no apparent distress at this time. Patient and/or pf1 family updated on plan of care and expected duration. Pain level reassessed. Patient is alert, oriented x 3, equal unlabored respirations, skin warm/dry/pink. Patient states symptoms have improved. 21:00 Reassessment: Patient appears in no apparent distress at this time. Patient and/or pf1 family updated on plan of care and expected duration. Pain level reassessed. Patient is alert, oriented x 3, equal unlabored respirations, skin warm/dry/pink. Patient states feeling better. Patient states symptoms have improved. 22:00 Reassessment: Patient appears in no apparent distress at this time. Patient and/or pf1 family updated on plan of care and expected duration. Pain level reassessed. Patient is alert, oriented x 3, equal unlabored respirations, skin warm/dry/pink. Patient states feeling better. Patient states symptoms have improved. 23:00 Reassessment: Patient appears in no apparent distress at this time. Patient and/or pf1 family updated on plan of care and expected duration. Pain level reassessed. Patient is alert, oriented x 3, equal unlabored respirations, skin warm/dry/pink. Patient states feeling better. Patient states symptoms have improved. 23:22 Reassessment: attempted report, nurse to call back. pf1 05/25 00:00 Reassessment: Patient appears in no apparent distress at this time. Patient and/or pf1 family updated on plan of care and expected duration. Pain level reassessed. Patient is alert, oriented x 3, equal unlabored respirations, skin warm/dry/pink. Patient states feeling better. Patient states symptoms have improved. Vital Signs: 05/24 08:46 BP 161 / 116; Pulse 89; Resp 16; Temp 97.8(O); Pulse Ox 100% on R/A; Weight 79.38 kg; hb Height 5 ft. 8 in. ; Pain 0/10; 09:34 BP 145 / 86; Pulse 76; Resp 14; Pulse Ox 100% ; ko1 11:27 BP 125 / 94; Pulse 82; Resp 18; Pulse Ox 100% ; nj1 13:12 BP 155 / 100; Pulse 83; Resp 18; Pulse Ox 100% on 2 lpm NC; nj1 14:36 BP 130 / 92; Pulse 80; Resp 17; Pulse Ox 100% ; nj1 18:30 BP 138 / 103; Pulse 89; Resp 18; Pulse Ox 100% on R/A; nj1 19:30 BP 118 / 89; Pulse 79; Resp 16; Pulse Ox 100% on R/A; Pain 0/10; pf1 20:30 BP 128 / 91; Pulse 82; Resp 16; Pulse Ox 99% on R/A; Pain 0/10; pf1 21:30 BP 121 / 78; Pulse 76; Resp 16; Pulse Ox 100% on R/A; Pain 0/10; pf1 22:30 BP 115 / 76; Pulse 72; Resp 20; Temp 98; Pulse Ox 98% on R/A; Pain 0/10; pf1 23:30 BP 116 / 75; Pulse 69; Resp 18; Pulse Ox 99% on R/A; Pain 0/10; pf1 08:46 Body Mass Index 26.61 (79.38 kg, 172.72 cm) hb 08:46 Pain Scale: Adult hb 19:30 Pain Scale: Adult pf1 20:30 Pain Scale: Adult pf1 21:30 Pain Scale: Adult pf1 22:30 Pain Scale: Adult pf1 23:30 Pain Scale: Adult pf1 ED Course: 08:28 Patient arrived in ED. ra3 08:43 Luis Jimenez MD is Attending Physician. rt 08:48 Triage completed. hb 08:49 Arm band placed on. hb 09:03 Angelina Christian, SALMA is Primary Nurse. ko1 09:20 Inserted saline lock: 20 gauge in right antecubital area, using aseptic technique. ko1 Blood collected. 09:24 CBC with Diff Sent. ko1 09:24 CMP Sent. ko1 09:24 Lipase Sent. ko1 09:34 Patient has correct armband on for positive identification. Bed in low position. Call ko1 light in reach. Side rails up X 1. Pulse ox on. NIBP on. Door closed. Noise minimized. Lights dimmed. Warm blanket given. 09:34 No provider procedures requiring assistance completed. ko1 10:19 Abdomen In Process Unspecified. EDMS 10:50 IV with fluids not infusing freely, without good blood return, IV discontinued, intact, nj1 No redness/swelling at site. 11:18 Inserted saline lock: 20 gauge in right upper arm, using aseptic technique. ,using nj1 aseptic technique. Ultrasound guided. Catheter tip well visualized within vasculature during placement. Blood collected. 12:00 Oxygen administration via nasal cannula \T\ 2L/min. nj1 12:54 Jeffry Zelaya MD is Hospitalizing Provider. rt 16:17 Inserted saline lock: 22 gauge in right hand, using aseptic technique. em1 19:00 Report given to Taisha MARSH. nj1 20:12 Inserted saline lock: in left forearm, using aseptic technique. ,using aseptic nj1 technique. Ultrasound guided. Catheter tip well visualized within vasculature during placement. Blood collected. 23:24 Provided Education on: need for admit . pf1 Administered Medications: 05/25 04:21 Discontinued: Insulin Drip - (insulin regular human ivp 100 units, ns 0.9% 100 ml) IV pf1 at calculated rate continuous; Standard concentration 1unit/ml; Dose for DKA is 0.1 units/kg/hr 05/24 09:23 Drug: NS 0.9% IV 1000 ml IV at 1 bolus Per protocol; 1000 mL bolus Route: IV; Rate: 1 ko1 bolus; Site: right antecubital; 12:00 Follow up: Response: No adverse reaction; IV Status: Completed infusion; IV Intake: nj1 1000ml 09:23 Drug: Famotidine IVP 20 mg IVP once; dilute with 10 mL 0.9% NaCl; give over 2 minutes ko1 Route: IVP; Site: right antecubital; 12:00 Follow up: Response: No adverse reaction nj1 09:23 Drug: Ondansetron IVP 4 mg IVP once; over 2 minutes Route: IVP; Site: right antecubital;ko1 12:00 Follow up: Response: No adverse reaction nj1 13:08 Drug: Insulin Regular Human IVP 8 units IVP once {Co-Signature: tl4 (Morgan Galindo RN).} Route: IVP; Site: right upper arm; 14:33 Follow up: Response: Blood sugar is lowered nj1 13:08 Drug: NS 0.9% IV 1000 ml IV at 1 bolus Per protocol; 1000 mL bolus Route: IV; Rate: 1 nj1 bolus; Site: right upper arm; 14:30 Follow up: Response: No adverse reaction; IV Status: Completed infusion; IV Intake: nj1 1000ml 14:33 Drug: Insulin Drip - (Insulin Regular Human IVP 100 units, NS 0.9% IV 100 ml) IV at nj1 calculated rate continuous; Standard concentration 1unit/ml; Dose for DKA is 0.1 units/kg/hr {Co-Signature: tl4 (Morgan Galindo RN).} Route: IV; Rate: 7.9 units/hr; Site: right upper arm; 15:27 Follow up: Rate change 3.9 units/hr nj1 16:40 Follow up: Rate change 1.9 units/hr nj1 17:47 Follow up: Rate change 0.9 units/hr nj1 18:37 Follow up: Rate change 0.4 units/hr nj1 Medication: 09:34 VIS not applicable for this client. ko1 Intake: 12:00 IV: 1000ml; Total: 1000ml. nj1 14:30 IV: 1000ml; Total: 2000ml. nj1 Outcome: 12:55 Decision to Hospitalize by Provider. rt 05/25 00:01 Admitted to Med/surg pf1 Condition: stable 00:02 Admitted to Med/surg accompanied by tech, via wheelchair, room 214, with chart, Report pf1 called to SALMA Hutton 00:02 Instructed on the need for admit, Demonstrated understanding of instructions, 00:03 Patient left the ED. pf1 Signatures: Dispatcher [employer] Benson Conley em1 Deedee Stark, RN RN Angelina Christian RN RN ko1 Luis Jimenez MD MD rt Stephani Johnston RN RN pf1 Moraima Briceno RN RN son1 Hali Scott ra3 Morgan Galindo RN tl4 Corrections: (The following items were deleted from the chart) 00:03 00:01 Condition: stable pf1 pf1
--- NOTE | 2023-05-24 12:56 | EDPHYS ---
Physician Documentation [facility] Name: Cecile Miranda Jr Age: 33 yrs Sex: Male : 1990 Arrival Date: 05/24/2023 Time: 08:27 Bed 15 Private MD: ED Physician Luis Jimenez HPI: 05/24 09:21 This 33 yrs old Black Male presents to ER via Wheelchair with complaints of rt Nausea/Vomiting. 09:21 Patient presents to the ED with nausea, vomiting. The patient was seen in the ED about rt 4 days ago for nausea and vomiting, had improvement and subsequently discharged. He states that since discharge, he has not been able to keep anything down by mouth. This includes his PPI, nausea medications. Denies any abdominal pain, diarrhea. Denies other acute complaints, symptoms are moderate severity, no other aggravating alleviating factors.. Historical: - Allergies: 08:48 No Known Allergies; hb - Home Meds: 08:48 metformin 500 mg Oral tablet 2 times per day [Active]; Novolin 70/30 [place] Sub-Q 20 hb unit twice a day [Active]; omeprazole 40 mg Oral capsule 2 times per day [Active]; Promethazine Oral [Active]; Zofran Oral [Active]; - PMHx: 08:48 diabetes mellitus; h. pylori; ULCER; hb - Immunization history:: Adult Immunizations up to date. - Social history:: Smoking status: Patient denies any tobacco usage or history of. - Family history:: not pertinent. ROS: 09:21 Constitutional: Negative for fever, chills, and weight loss, Cardiovascular: Negative rt for chest pain, palpitations, and edema, Respiratory: Negative for shortness of breath, cough, wheezing, and pleuritic chest pain, MS/Extremity: Negative for injury and deformity, Skin: Negative for injury, rash, and discoloration, Neuro: Negative for headache, weakness, numbness, tingling, and seizure, Psych: Negative for depression, anxiety, suicide ideation, homicidal ideation, and hallucinations, 09:21 Abdomen/GI: Positive for nausea and vomiting, Negative for abdominal pain, diarrhea, Exam: 09:21 Constitutional: This is a well developed, well nourished patient who is awake, alert, rt and in no acute distress. Head/Face: Normocephalic, atraumatic. Chest/axilla: Normal chest wall appearance and motion. Nontender with no deformity. No lesions are appreciated. Cardiovascular: Regular rate and rhythm with a normal S1 and S2. No gallops, murmurs, or rubs. Normal PMI, no JVD. No pulse deficits. Respiratory: Lungs have equal breath sounds bilaterally, clear to auscultation and percussion. No rales, rhonchi or wheezes noted. No increased work of breathing, no retractions or nasal flaring. Abdomen/GI: Soft, non-tender, with normal bowel sounds. No distension or tympany. No guarding or rebound. No evidence of tenderness throughout. Skin: Warm, dry with normal turgor. Normal color with no rashes, no lesions, and no evidence of cellulitis. MS/ Extremity: Pulses equal, no cyanosis. Neurovascular intact. Full, normal range of motion. Neuro: Awake and alert, GCS 15, oriented to person, place, time, and situation. Cranial nerves II-XII grossly intact. Motor strength 5/5 in all extremities. Sensory grossly intact. Cerebellar exam normal. Normal gait. Psych: Awake, alert, with orientation to person, place and time. Behavior, mood, and affect are within normal limits. Vital Signs: 08:46 BP 161 / 116; Pulse 89; Resp 16; Temp 97.8(O); Pulse Ox 100% on R/A; Weight 79.38 kg; hb Height 5 ft. 8 in. ; Pain 0/10; 09:34 BP 145 / 86; Pulse 76; Resp 14; Pulse Ox 100% ; ko1 11:27 BP 125 / 94; Pulse 82; Resp 18; Pulse Ox 100% ; nj1 13:12 BP 155 / 100; Pulse 83; Resp 18; Pulse Ox 100% on 2 lpm NC; nj1 14:36 BP 130 / 92; Pulse 80; Resp 17; Pulse Ox 100% ; nj1 18:30 BP 138 / 103; Pulse 89; Resp 18; Pulse Ox 100% on R/A; nj1 19:30 BP 118 / 89; Pulse 79; Resp 16; Pulse Ox 100% on R/A; Pain 0/10; pf1 20:30 BP 128 / 91; Pulse 82; Resp 16; Pulse Ox 99% on R/A; Pain 0/10; pf1 21:30 BP 121 / 78; Pulse 76; Resp 16; Pulse Ox 100% on R/A; Pain 0/10; pf1 22:30 BP 115 / 76; Pulse 72; Resp 20; Temp 98; Pulse Ox 98% on R/A; Pain 0/10; pf1 23:30 BP 116 / 75; Pulse 69; Resp 18; Pulse Ox 99% on R/A; Pain 0/10; pf1 08:46 Body Mass Index 26.61 (79.38 kg, 172.72 cm) hb 08:46 Pain Scale: Adult hb 19:30 Pain Scale: Adult pf1 20:30 Pain Scale: Adult pf1 21:30 Pain Scale: Adult pf1 22:30 Pain Scale: Adult pf1 23:30 Pain Scale: Adult pf1 MDM: 08:43 Patient medically screened. rt 12:55 Differential diagnosis: Gastritis, pancreatitis, DKA. Data reviewed: vital signs, rt nurses notes, lab test result(s), radiologic studies. Consideration of Admission/Observation Patient was admitted/placed on observation. Management of patient was discussed with the following: Hospitalist: Agrees to admit. Independent interpretation of the following test(s) in the Emergency Department CT Scan: My interpretation is No bowel obstruction syndrome interpretation of CT scan images. Care significantly affected by the following chronic conditions: Diabetes. Counseling: I had a detailed discussion with the patient and/or guardian regarding the historical points, exam findings, and any diagnostic results supporting the discharge/admit diagnosis, lab results, radiology results, the need for further work-up and treatment in the hospital. Response to treatment: the patient's symptoms have mildly improved after treatment. 05/24 08:54 Order name: CBC with Diff; Complete Time: 10: rt 05/24 08:54 Order name: CMP; Complete Time: 10: rt 05/24 08:54 Order name: Lipase; Complete Time: 10: rt 05/24 08:54 Order name: Urinalysis w/ reflexes; Complete Time: 12:08 rt 05/24 10:10 Order name: ABG: vbg ok; Complete Time: 12:08 rt 05/24 11:36 Order name: BETA HYDROXYBUTYRATE; Complete Time: 12:31 EDMS 05/24 14:47 Order name: Glucose, Ancillary Testing EDMS 05/24 15:41 Order name: Glucose, Ancillary Testing EDMS 05/24 17:18 Order name: Glucose, Ancillary Testing [facility] 05/24 17:59 Order name: Glucose, Ancillary Testing [facility] 05/24 18:49 Order name: Glucose, Ancillary Testing [facility] 05/24 20:42 Order name: Basic Metabolic Panel [facility] 05/24 21:00 Order name: Glucose, Ancillary Testing [facility] 05/24 22:28 Order name: Glucose, Ancillary Testing [facility] 05/24 23:29 Order name: Glucose, Ancillary Testing [facility] 05/24 23:53 Order name: Glucose, Ancillary Testing [facility] 05/24 09:58 Order name: Abdomen ; Complete Time: 10:32 EDKS 05/24 08:54 Order name: IV Saline Lock; Complete Time: 09:23 rt 05/24 08:54 Order name: Labs collected and sent; Complete Time: 09:23 rt Administered Medications: 05/25 04:21 Discontinued: Insulin Drip - (insulin regular human ivp 100 units, ns 0.9% 100 ml) IV pf1 at calculated rate continuous; Standard concentration 1unit/ml; Dose for DKA is 0.1 units/kg/hr 05/24 09:23 Drug: NS 0.9% IV 1000 ml IV at 1 bolus Per protocol; 1000 mL bolus Route: IV; Rate: 1 ko1 bolus; Site: right antecubital; 12:00 Follow up: Response: No adverse reaction; IV Status: Completed infusion; IV Intake: nj1 1000ml 09:23 Drug: Famotidine IVP 20 mg IVP once; dilute with 10 mL 0.9% NaCl; give over 2 minutes ko1 Route: IVP; Site: right antecubital; 12:00 Follow up: Response: No adverse reaction nj1 09:23 Drug: Ondansetron IVP 4 mg IVP once; over 2 minutes Route: IVP; Site: right antecubital;ko1 12:00 Follow up: Response: No adverse reaction nj1 13:08 Drug: Insulin Regular Human IVP 8 units IVP once {Co-Signature: tl4 (Morgan Galindo1 RN).} Route: IVP; Site: right upper arm; 14:33 Follow up: Response: Blood sugar is lowered nj1 13:08 Drug: NS 0.9% IV 1000 ml IV at 1 bolus Per protocol; 1000 mL bolus Route: IV; Rate: 1 nj1 bolus; Site: right upper arm; 14:30 Follow up: Response: No adverse reaction; IV Status: Completed infusion; IV Intake: nj1 1000ml 14:33 Drug: Insulin Drip - (Insulin Regular Human IVP 100 units, NS 0.9% IV 100 ml) IV at banner calculated rate continuous; Standard concentration 1unit/ml; Dose for DKA is 0.1 units/kg/hr {Co-Signature: tl4 (Morgan Galindo RN).} Route: IV; Rate: 7.9 units/hr; Site: right upper arm; 15:27 Follow up: Rate change 3.9 units/hr banner 16:40 Follow up: Rate change 1.9 units/hr banner 17:47 Follow up: Rate change 0.9 units/hr banner 18:37 Follow up: Rate change 0.4 units/hr banner Disposition Summary: 05/24/23 12:55 Hospitalization Ordered Notes: Hospitalization Status: Inpatient Admission rt Provider: Jeffry Zelaya rt Condition: Fair rt Problem: new rt Symptoms: have improved rt Bed/Room Type: Standard rt Location: Telemetry/MedSurg (Inpatient)(05/24/23 21:47) Room Assignment: [facility] [place](05/24/23 21:47) Diagnosis - Nausea with vomiting, unspecified rt - Other specified diabetes mellitus with ketoacidosis rt Forms: - Medication Reconciliation Form rt - SBAR form rt - Leadership Thank You Letter rt Critical care time excluding procedures: 12:55 Critical care time: Bedside Care: 30 minutes, Consultation: 5 minutes. Total time: 35 rt minutes Signatures: Dispatcher [employer] EDDena Mims RN Deedee Fam RN RN hb Botello, Elizabeth eb Angelina Christian RN RN ko1 Luis Jimenez MD MD rt Moraima Briceno RN RN njMorgan Oconnell RN tl4 Corrections: (The following items were deleted from the chart) 09:58 08:55 Abdomen Pelvis W Con+CT.RAD.BRZ ordered. EDMS EDMS 15:32 12:55 Telemetry/MedSurg (Inpatient) rt eb 15:32 12:55 rt eb 21:47 15:32 [facility] ER HOLD eb kl 21:47 15:32 ERHOLD- eb 05/25 00:04 05/24 11:24 BETA HYDROXYBUTYRATE+C.MYKE ordered. nj1 pf1
[2023-05-24] MEDS ORDERED: INSULIN -REGULAR HUMAN 100 UNIT in NA CHLORIDE 0.9% 100 ML IV SCH (13:00)
[2023-05-24] MEDS ORDERED: SODIUM CHLORIDE 0.9% 10ML INJ IV PRN (15:46)
--- NOTE | 2023-05-24 15:57 | P.HP ---
Certification for Inpatient Patient admitted to: Inpatient With expected LOS: >2 Midnights Patient will require the following post-hospital care: None Practitioner: I am a practitioner with admitting privileges, knowledge of patient current condition, hospital course, and medical plan of care. Services: Services provided to patient in accordance with Admission requirements found in Title 42 Section 412.3 of the Code of Federal Regulations Patient History Date of Service: 05/24/23 Reason for admission: Intractable vomiting, ketosis History of Present Illness: 33-year-old male with history of type 1 diabetes, GERD/gastritis/H. pylori infection presents emergency department with persistent nausea/vomiting. He reports on the 05/17/2023 he had a couple alcoholic beverages, the following morning he woke up with nausea and vomiting, initially thought he was hung over but has been unable to tolerate anything by mouth since then. Reports intolerance of clear fluids as well. He was evaluated in the emergency department his labs are significant for hemoglobin 18.1 hematocrit 53.9 sodium 126 chloride 81 BUN 35 creatinine 1.57 GFR 60 glucose 372 T. bili 1.1 serum ketones positive, 4+ urine ketones also present. Anion gap is 20 although there is no acidosis present. Patient was started on insulin drip, given 2 L IV fluid in the emergency depar tment, ED prior wishes to admit for further evaluation and management of acute kidney injury, intractable nausea and vomiting, ketosis Allergies No Known Allergies Allergy (Unverified 05/31/22 23:57) Home Medications: Alcohol Antiseptic Pads [Alcohol Prep Pads] 1 each BID #1 box 06/01/22 Blood Sugar Diagnostic [Blood Glucose Test Strip] 1 each MC BID #30 strip 06/01/22 Blood-Glucose Meter [Blood Glucose Monitoring] 1 each MC BID #1 kit 06/01/22 Insulin 70/30 NPH/Reg Human [Novolin 70/30*] 20 unit SQ Q12H #15 ml 06/01/22 Lancets [Lancets Thin] 1 each MC BID #1 box 06/01/22 Metformin HCl [Glucophage*] 500 mg PO BIDWM 06/01/22 Pen Needle, Diabetic [Pen Needle] 1 each MC BID #1 box 06/01/22 Pantoprazole [Protonix Tab*] 40 mg PO BIDAC #60 tab 08/04/22 Sucralfate [Carafate*] 10 ml PO ACHS #1000 ml 08/04/22 Ensure High Protein 237 ml PO BID can 01/24/23 Metoclopramide [Reglan*] 10 mg IV Q6H vial 01/24/23 Pantoprazole Inj [Protonix IV*] 40 mg IVP Q12HR vial 01/24/23 Polyethyl Gly 3350 [Glycolax*] 17 gm PO BID udbot 01/24/23 - Past Medical/Surgical History Diabetic: Yes -: Type 1 Diabetes -: GERD -: Gastroparesis -: H. pylori, gastric ulcers -: None Psychosocial/ Personal History: Patient is . - Family History Father -: Heart disease, Hypertension, Diabetes Mother -: Heart disease, Hypertension, Diabetes - Social History Smoking Status: Never smoker Alcohol use: No CD- Drugs: No Caffeine use: Yes Place of Residence: Home Review of Systems 10-point ROS is otherwise unremarkable Gastrointestinal: Nausea, Vomiting Physical Examination - Physical Exam General: Alert, In no apparent distress, Oriented x3 HEENT: Atraumatic, PERRLA, Mucous membr. moist/pink Neck: Supple, 2+ carotid pulse no bruit, No LAD Respiratory: Clear to auscultation bilaterally, Normal air movement Cardiovascular: Regular rate/rhythm, Normal S1 S2 Capillary refill: <2 Seconds Gastrointestinal: Normal bowel sounds, No tenderness Musculoskeletal: No tenderness Integumentary: No rashes Neurological: Normal speech, Normal strength at 5/5 x4 extr, Normal tone, Normal affect - Studies Laboratory Data (last 24 hrs) 05/24/23 05/24/23 09:20 09:20 WBC 8.10 Hgb 18.1 H Hct 53.9 H Plt Count 294 Sodium 126 L Potassium 3.8 BUN 35 H Creatinine 1.57 H Glucose 372 H Total Bilirubin 1.1 H AST 10 L ALT 23 Alkaline Phosphatase 89 Lipase 17 Assessment and Plan - Plan Assessment: Intractable nausea vomiting Ketosis Acute kidney injury Diabetes mellitus type 1 with hyperglycemia GERD/history of gastric ulcers and H. pylori Plan: Intractable nausea vomiting Ketosis GERD/history of gastric ulcers and H. pylori Acute kidney injury Reports intractable nausea and vomiting for the past 1 week Has had similar episodes in the past related to GERD/gastric ulcers And improvement with Protonix in the past, unable to tolerate oral Protonix Continue aggressive IV fluids, IV twice daily PPI If still with intractable nausea vomiting, will consult GI Monitor renal function daily Diabetes mellitus type 1 with hyperglycemia Insulin drip started in ED, continue until hyperglycemia improved, anion gap closed No acidosis currently DVT PPX:Lovenox Code status:Full code Discharge Plan: Home Plan to discharge in: 48 Hours - Advance Directives Does patient have a Living Will: No Does patient have a Durable POA for Healthcare: No - Code Status/Comfort Care Code Status Assessed: Yes (Full code) Critical Care: No Time Spent Managing Pts Care (In Minutes): 70
[2023-05-24] MEDS ORDERED: D5.45NS W/KCL 20MEQ 1,000 ML IV ONE (16:19)
[2023-05-24] MEDS: D5.45NS W/KCL 20MEQ 1,000 ML IV SCH (16:20)
[2023-05-24] MEDS: NACHLORIDE 0.45% 1,000 ML with POTASSIUM CL 20 MEQ IV SCH (16:40)
[2023-05-24 20:41] LABS: Potassium 3.7 mEq/L (3.5-5.1)
[2023-05-24] MEDS ORDERED: D10W 250 ML BAG IV PRN (21:00)
[2023-05-24] MEDS ORDERED: GLUCAGON 1 MG/VIAL IM PRN (21:00)
[2023-05-24] MEDS: NA CHLORIDE 0.9% 1,000 ML IV SCH (21:00)
[2023-05-24] MEDS ORDERED: PANTOPRAZOLE 40 MG INJ ONE (22:28)
[2023-05-24] MEDS ORDERED: INSULIN REGULAR (HUMAN) 100 UNIT/ML ONE (22:28)
[2023-05-24] MEDS: INSULIN REGULAR (HUMAN) 100 UNIT/ML SQ SCH (22:34)
[2023-05-24] MEDS: PANTOPRAZOLE 40 MG INJ IVP SCH (22:35)
[2023-05-25 00:21] VITALS: BMI 26.6
[2023-05-25 00:22] VITALS: O2SAT 100
[2023-05-25 06:53] LABS: Hematocrit 43.5 % (39.6-49.0); MCV 89.2 fL (80-100); MPV 8.1 fL (7.6-11.3); Platelets 226 thou/uL (152-406); RBC Red Blood Cell Count 4.88 M/uL (4.33-5.43)
[2023-05-25 07:15] LABS: Magnesium 2.1 mg/dL (1.6-2.4); Phosphorus 1.8 mg/dL (2.5-4.9); Potassium 3.3 mEq/L (3.5-5.1)
[2023-05-25] MEDS: INSULIN 70/30 100 UNITS/ML SQ SCH (08:21)
[2023-05-25] MEDS: ENOXAPARIN 40 MG/0.4 ML SQ SCH (08:21)
[2023-05-25] MEDS: SUCRALFATE 1GM/10ML UCUP PO SCH (08:21)
[2023-05-25] MEDS: POTASSIUM CL SA 10 MEQ TAB PO ONE (08:22)
[2023-05-25] MEDS: POTASS/SODIUM PHOSPHATE 1 PKT POWD.PACK PO SCH (08:26)
--- NOTE | 2023-05-25 09:37 | P.PN ---
Date of Service: 05/25/23 Subjective: Symptoms improving Still with some nausea Tolerating clear liquids ROS: 10 point ROS as noted above, otherwise negative Physical exam GEN: Alert, oriented, NAD HEENT: Normal conjunctiva, sclera anicteric CV: Regular rate and rhythm, no edema Pulm: Nonlabored respirations on room air ABD: Soft, nontender, nondistended MSK: No joint tenderness Integumentary: No rashes Neuro: Normal speech, normal affect Vitals reviewed Assessment: Intractable nausea vomiting Ketosis Acute kidney injury Diabetes mellitus type 1 with hyperglycemia GERD/history of gastric ulcers and H. pylori Plan: Intractable nausea vomiting Ketosis GERD/history of gastric ulcers and H. pylori Acute kidney injury Reports intractable nausea and vomiting for the past 1 week Has had similar episodes in the past related to GERD/gastric ulcers And improvement with Protonix in the past, unable to tolerate oral Protonix Continue aggressive IV fluids, IV twice daily PPI, ACHS carafate liquid Improving, will increase to ada diet MAYUR improving with IVF A1c 12.9 Diabetes mellitus type 1 with hyperglycemia resume SubQ insulin SSI DVT PPX:Lovenox Code status:Full code Discharge Plan: Home Plan to discharge in: 48 Hours Time Spent Managing Pts Care (In Minutes): 35
[2023-05-25] MEDS: ONDANSETRON 4 MG/2 ML VIAL IV PRN (12:53)
[2023-05-25] MEDS: METOCLOPRAMIDE 10 MG/2mL INJ IV SCH (17:19)
[2023-05-25] MEDS: TRAZODONE 50 MG TABLET PO SCH (20:20)
[2023-05-25] MEDS: INSULIN 70/30 100 UNITS/ML SQ ONE (21:22)
[2023-05-25] MEDS ORDERED: INSULIN 70/30 100 UNITS/ML SQ ONE (21:30)
[2023-05-26 07:05] LABS: MCV 88.8 fL (80-100); MPV 8.2 fL (7.6-11.3); Platelets 186 thou/uL (152-406); RBC Red Blood Cell Count 4.28 M/uL (4.33-5.43)
[2023-05-26 07:20] LABS: Magnesium 2.1 mg/dL (1.6-2.4); Phosphorus 2.3 mg/dL (2.5-4.9); Potassium 3.3 mEq/L (3.5-5.1)
[2023-05-26] MEDS: POTASSIUM CL SA 10 MEQ TAB PO ONE (08:01)
[2023-05-26] MEDS: POTASS/SODIUM PHOSPHATE 1 PKT POWD.PACK PO SCH (09:05)
--- NOTE | 2023-05-26 17:10 | P.PN ---
Date of Service: 05/26/23 Subjective: Feels better this AM requesting diet to be advanced reports drinking alcohol while using marijuana ROS: 10 point ROS as noted above, otherwise negative Physical exam GEN: AAOx3, NAD, calm, cooperative HEENT: Normal conjunctiva, sclera anicteric CV: RRR, no edema, no murmur noted, S1 S2 present Pulm: Nonlabored respirations on room air ABD: Soft, nontender, nondistended, bowel sounds present MSK: No joint tenderness Integumentary: No rashes Neuro: Normal speech, normal affect Vitals reviewed Assessment: Intractable nausea vomiting Ketosis Acute kidney injury Diabetes mellitus type 1 with hyperglycemia GERD/history of gastric ulcers and H. pylori Plan: Intractable nausea vomiting Ketosis GERD/history of gastric ulcers and H. pylori Acute kidney injury- resolved Substance abuse Actively uses marijuana and alcohol together Reports intractable nausea and vomiting for the past 1 week Has had similar episodes in the past related to GERD/gastric ulcers Continue aggressive IV fluids, PPI BID, ACHS carafate liquid PO protonix BID Improved nausea with increased hunger MAYUR improving with IVF A1c 12.9 Diabetes mellitus type 1 with hyperglycemia continue accucheck with SubQ SSI edcuate concerning outpatient follow up DVT PPX:Lovenox Code status:Full code Discharge Plan: Home Plan to discharge in: 48 Hours
[2023-05-26] MEDS: MELATONIN 5 MG TABLET PO SCH (20:29)
[2023-05-26] MEDS: PANTOPRAZOLE 40MG TABLET PO SCH (20:29)
[2023-05-27 05:38] LABS: Phosphorus 2.9 mg/dL (2.5-4.9)
[2023-05-27 05:39] LABS: Potassium 3.3 mEq/L (3.5-5.1)
[2023-05-27 08:42] VITALS: BP 123/73; TEMP 97.2
--- NOTE | 2023-05-27 18:57 | P.DS ---
Admission Date: 05/24/23 Discharge Date: 05/27/23 Disposition: ROUTINE DISCHARGE Discharge Condition: FAIR Reason for Admission: Intractable vomiting, ketosis Vital Signs/Physical Exam: Temp Pulse Resp BP Pulse Ox 97.2 F 70 16 123/73 99 05/27/23 08:00 05/27/23 08:00 05/27/23 08:00 05/27/23 08:00 05/27/23 08:00 Laboratory Data at Discharge: WBC 6.10 thou/uL (4.3-10.9) 05/26/23 06:24 Hgb 13.2 g/dL (13.6-17.9) L D 05/26/23 06:24 Hct 38.0 % (39.6-49.0) L 05/26/23 06:24 Plt Count 186 thou/uL (152-406) 05/26/23 06:24 Sodium 135 mEq/L (136-145) L 05/27/23 04:05 Potassium 3.3 mEq/L (3.5-5.1) L 05/27/23 04:05 BUN 9 mg/dL (7-18) 05/27/23 04:05 Creatinine 0.96 mg/dL (0.70-1.30) 05/27/23 04:05 Glucose 138 mg/dL (74-106) H 05/27/23 04:05 Phosphorus 2.9 mg/dL (2.5-4.9) 05/27/23 04:05 Magnesium 2.0 mg/dL (1.6-2.4) 05/27/23 04:05 Total Bilirubin 1.1 mg/dL (0.2-1.0) H 05/24/23 09:20 AST 10 U/L (15-37) L 05/24/23 09:20 ALT 23 U/L (16-61) 05/24/23 09:20 Alkaline Phosphatase 89 U/L (45-117) 05/24/23 09:20 Triglycerides 144 mg/dL (<150) 05/25/23 05:49 Cholesterol 265 mg/dL (<200) H 05/25/23 05:49 HDL Cholesterol 35 mg/dL (40-60) L 05/25/23 05:49 Cholesterol/HDL Ratio 7.57 05/25/23 05:49 Lipase 17 U/L (13-75) 05/24/23 09:20 Home Medications: Insulin 70/30 NPH/Reg Human [Novolin 70/30*] 10 units SQ BIDAC 05/25/23 Metformin HCl [Glucophage*] 500 mg PO BIDAC 05/25/23 Pantoprazole [Protonix Tab*] 40 mg PO BID 05/25/23 Metoclopramide HCl [Reglan] 10 mg PO TID #21 tab 05/27/23 Sucralfate [Carafate] 10 ml PO TID #420 ml 05/27/23 New Medications: Sucralfate [Carafate] 10 ml PO TID #420 ml Metoclopramide HCl [Reglan] 10 mg PO TID #21 tab Physician Discharge Instructions: Cecile Miranda presented to the ED with complaints of persistent nausea and vomiting. His serum glucose was elevated which had responded well to IV fluids and insulin drip. Consulted to stop marijuana use which causes intractable nausea and vomiting. Continue symptom management with the new medications sucralfate and Reglan. 1. Please call and schedule a follow-up appointment with your PCP in 3-5 days - Please follow-up with your PCP for medication refills/adjustments - need for better glucose control 2. Continue diabetic diet 3. No activity restrictions 4. Return to ED if symptoms worsen New medication Sucralfate 10 mL p.o. 3 times daily Reglan 10 mL p.o. 3 times daily Diet: ADA Activity: Ad becka Followup: Naun Whittaker MD [Primary Care Provider] - 1-2 Weeks
== END 2023-05-27 11:18 | disposition home or self-care (01) | DRG 682 ==
LOC: ER 08:27 → ERHOLD 13:43 → 2ND 22:46
PROVIDERS: ADMIT Hospitalist; ATTEND Internal Medicine
DX: N17.9 Acute kidney failure, unspecified (principal); E10.10 Type 1 diabetes mellitus with ketoacidosis without coma; K21.9 Gastro-esophageal reflux disease without esophagitis; Z79.4 Long term (current) use of insulin; Z79.84 Long term (current) use of oral hypoglycemic drugs; Z79.899 Other long term (current) drug therapy
CPT/HCPCS: 36415; 74176; 80048; 80053; 80061; 81001; 82010; 82805; 82947; 83036; 83690; 83735; 83880; 84100; 84132; 85025; 85027; 99285; C9113; J1650; J1815; J2405; J2765; J3480; J7030

== ENCOUNTER → 2023-06-03 | Emergency (ER) | payer OTHER ==
[~2023-06-03] MED LIST changes: -DIPHENHYDRAMINE 50 MG/ML VIAL ONE; -MAGNES/ALUMIN/SIMET 30ML UCUP ONE; +ONDANSETRON 4 MG/2 ML VIAL ONE
[2023-06-03 15:29] LABS: SARS-CoV-2 Antigen Rapid Res Negative (Negative)
[2023-06-03 15:50] LABS: Absolute Lymphocytes (CBC) 2.1 K/uL (0.7-4.9); Hematocrit 41.1 % (39.6-49.0); Lymphocytes % 19.5 % (15.3-44.8); MCV 89.2 fL (80-100); MPV 7.6 fL (7.6-11.3); Platelets 475 thou/uL (152-406); RBC Red Blood Cell Count 4.61 M/uL (4.33-5.43)
[2023-06-03 16:09] LABS: Albumin 3.6 g/dL (3.4-5.0); Bilirubin Total 0.6 mg/dL (0.2-1.0); Potassium 4.1 mEq/L (3.5-5.1); Protein, Total 7.3 g/dL (6.4-8.2)
[2023-06-03 16:16] LABS: Specific Gravity > 1.030 (1.005-1.030); Urine Bacteria <20 /HPF (<20); Urine Bilirubin NEGATIVE (Negative); Urine Blood Negative (Negative); Urine Clarity Clear (Clear); Urine Color Yellow (Yellow); Urine Glucose 4+ (Over) (Negative); Urine Mucus 3+ /HPF (None Seen); Urine Protein 1+ (Negative); Urine Urobilinogen 1+ (Normal); Urine pH 7.5 (5.0-7.0)
--- NOTE | 2023-06-03 17:00 | RAD REPORT ---
EXAM DESCRIPTION: CTAbdomen Pelvis W Contrast - 06/03/2023 4:51 pm CLINICAL HISTORY: Abdominal pain. Abd pain;Nausea / vomiting COMPARISON: Abdomen Pelvis W Contrast dated 07/29/2022; Abdomen Pelvis Wo Contrast dated ; Abdomen Pelvis Wo Contrast dated 01/21/2023 TECHNIQUE: Biphasic CT imaging of the abdomen and pelvis was performed with 100 ml non-ionic IV cont rast. All CT scans are performed using dose optimization technique as appropriate and may include automated exposure control or mA/KV adjustment according to patient size. FINDINGS: The lung bases are clear.Mild thickening of the distal esophagus. The liver, spleen, pancreas, adrenal glands and kidneys are within normal limits. No bowel obstruction, free air, free fluid or abscess. Prominent stool retention throughout the colon . The appendix is normal. No evidence of significant lymphadenopathy. No suspicious bony findings. IMPRESSION: No acute intra-abdominal or pelvic finding. Prominent fecal retention throughout the colon.
--- NOTE | 2023-06-03 17:31 | EDPHYS ---
Physician Documentation [facility] Name: Cecile Miranda Jr Age: 33 yrs Sex: Male : 1990 Arrival Date: 06/03/2023 Time: 14:42 Bed 20 Private MD: Naun Whittaker ED Physician Sanju Zelaya HPI: 06/03 14:57 This 33 yrs old Black Male presents to ER via Unassigned with complaints of rn Nausea/Vomiting. 14:57 The patient presents to the emergency department with nausea, vomiting. Onset: The rn symptoms/episode began/occurred 2 day(s) ago. Possible causes: flare up of bowel problem, Gastroparesis. The symptoms are aggravated by nothing. The symptoms are alleviated by nothing. Severity of symptoms: At their worst the symptoms were moderate in the emergency department the symptoms are unchanged. The patient has experienced similar episodes in the past. The patient has been recently seen by a physician:. Patient reports 2 days of nausea/vomiting, seen at [place] emergency room, told blood sugar was high but was not admitted to the hospital. Patient states compliant with his insulin but sugar is still in the 500s. Reports nausea/vomiting and abdominal pain. Reports diarrhea. No fever or sick contacts.. Historical: - Allergies: 15:00 No Known Allergies; iw - Home Meds: 18:18 metformin 500 mg Oral tablet 2 times per day [Active]; Zofran Oral [Active]; tl4 Promethazine Oral [Active]; omeprazole 40 mg Oral capsule 2 times per day [Active]; Novolin 70/30 [place] Sub-Q 20 unit twice a day [Active]; - PMHx: 15:00 diabetes mellitus; h. pylori; ULCER; iw - Immunization history:: Adult Immunizations unknown. - Family history:: not pertinent. - Social history:: Smoking status: Patient denies any tobacco usage or history of. - Hospitalizations: : No recent hospitalization is reported. ROS: 14:57 Constitutional: Negative for fever, chills, and weight loss, Cardiovascular: Negative rn for chest pain, palpitations, and edema, Respiratory: Negative for shortness of breath, cough, wheezing, and pleuritic chest pain, Abdomen/GI: Positive for nausea and vomiting MS/Extremity: Negative for injury and deformity, Skin: Negative for injury, rash, and discoloration, Neuro: Negative for headache, numbness, tingling, and seizure, Exam: 14:57 Constitutional: This is a well developed, well nourished patient who is awake, alert, rn and in no acute distress. Cardiovascular: Regular rate and rhythm. No pulse deficits. Respiratory: No increased work of breathing, no retractions or nasal flaring. Abdomen/GI: Soft, mild epigastric tenderness. No rebound or guarding MS/ Extremity: Pulses equal, no cyanosis. Neuro: Awake and alert, GCS 15 Vital Signs: 14:59 BP 146 / 94; Pulse 96; Resp 16; Temp 99.1; Pulse Ox 100% ; Weight 72.57 kg; Height 5 iw ft. 8 in. ; Pain 9/10; 18:16 BP 132 / 88; Pulse 85; Resp 16; Temp 98.3(O); Pulse Ox 99% on R/A; Pain 0/10; tl4 14:59 Body Mass Index 24.33 (72.57 kg, 172.72 cm) iw 14:59 Pain Scale: Adult iw 18:16 Pain Scale: Adult tl4 Licha Coma Score: 18:16 Eye Response: spontaneous(4). Motor Response: obeys commands(6). Verbal Response: tl4 oriented(5). Total: 15. MDM: 14:48 Patient medically screened. rn 17:27 Differential diagnosis: Nonspecific abd pain, gastritis, viral gastroenteritis, rn gastroenteritis, Gastroparesis, DKA, hyperglycemia, dehydration. Data reviewed: vital signs, nurses notes, lab test result(s), radiologic studies, CT scan, and as a result, I will discharge patient. Counseling: I had a detailed discussion with the patient and/or guardian regarding the historical points, exam findings, and any diagnostic results supporting the discharge/admit diagnosis, lab results, radiology results, the need for outpatient follow up, to return to the emergency department if symptoms worsen or persist or if there are any questions or concerns that arise at home. Response to treatment: the patient's symptoms have markedly improved after treatment, No longer vomiting and asking for ice chips and water, and as a result, I will discharge patient. Special discussion: Based on the patient's Hx, exam, and Dx evaluation, there is no indication for emergent surgery or inpatient Tx. It is understood by the patient/guardian that if the Sx's persist or worsen they need to return immediately for re-evaluation. I discussed with the patient/guardian in detail that at this point there is no indication for admission to the hospital. It is understood, however, that if the symptoms persist or worsen the patient needs to return immediately for re-evaluation. ED course: No acute findings and workup here. No DKA. No acidosis. Mild hyperglycemia with dehydration but given IV fluids and nausea medication. Patient feels better and is on phone with , nontoxic, no further vomiting since arrival. Will discharge home with GI follow-up and return precautions. Had long conversation with patient and regarding better glucose control and diet modification and gastroparesis as well.. 06/03 14:55 Order name: CBC with Diff; Complete Time: 15:54 rn 06/03 14:55 Order name: CMP; Complete Time: 16:34 rn 06/03 14:55 Order name: Lipase; Complete Time: 16:34 rn 06/03 14:55 Order name: Urinalysis w/ reflexes; Complete Time: 16:34 rn 06/03 14:55 Order name: SARS RAPID; Complete Time: 15:54 rn 06/03 14:55 Order name: Flu; Complete Time: 15:54 rn 06/03 15:15 Order name: Glucose, Ancillary Testing; Complete Time: 15:54 EDMS 06/03 17:08 Order name: BETA HYDROXYBUTYRATE EDMS 06/03 14:55 Order name: CT Abd/Pelvis - IV Contrast Only; Complete Time: 17:01 rn 06/03 14:55 Order name: IV Saline Lock; Complete Time: 15:42 rn 06/03 14:55 Order name: Labs collected and sent; Complete Time: 15:42 rn 06/03 14:55 Order name: Glucose Level; Complete Time: 15:02 rn Administered Medications: 15:42 Drug: NS 0.9% IV 1000 ml IV at 1 bolus Per protocol; 1000 mL bolus Route: IV; Rate: 1 iw bolus; Site: right antecubital; 17:19 Follow up: Response: No adverse reaction; IV Status: Completed infusion; IV Intake: ll1 1000ml 15:42 Drug: Famotidine IVP 20 mg IVP once; dilute with 10 mL 0.9% NaCl; give over 2 minutes iw Route: IVP; Site: right antecubital; 17:20 Follow up: Response: No adverse reaction ll1 15:42 Drug: Ondansetron IVP 4 mg IVP once; over 2 minutes Route: IVP; Site: right antecubital;iw 17:19 Follow up: Response: No adverse reaction ll1 15:42 Drug: metoCLOPramide IVP 10 mg IVP once; over 1 to 2 minutes Route: IVP; Site: right iw antecubital; 17:20 Follow up: Response: No adverse reaction ll1 Point of Care Testing: Blood Glucose: 15:02 Blood Glucose: 261 mg/dL; iw Ranges: Critical Glucose Levels:Adult <50 mg/dl or >400 mg/dl <40 mg/dl or >180 mg/dl Disposition Summary: 06/03/23 17:30 Discharge Ordered Notes: Location: Home rn Problem: new rn Symptoms: have improved rn Condition: Stable rn Diagnosis - Gastroparesis rn - Hyperglycemia, unspecified rn - Dehydration rn - Constipation, unspecified rn Followup: rn - With: Private Physician - When: As needed - Reason: Recheck today's complaints, Re-evaluation by your physician Discharge Instructions: - Discharge Summary Sheet rn - Hyperglycemia rn - Blood Glucose Monitoring, Adult rn - Gastroparesis rn Forms: - Medication Reconciliation Form rn - Thank You Letter rn - Antibiotic automatic pattern edger - Prescription Opioid Use rn - Patient Portal Instructions rn - Leadership Thank You Letter rn Prescriptions: - Reglan 10 mg Oral Tablet - take 1 tablet ORAL route every 6 hours take 30 minutes before meals and at rn bedtime; 20 tablet; Refills: 0, Product Selection Permitted Signatures: Dispatcher [employer] Marybeth Carlson RN RN iw Sanju Zelaya MD MD rn Logdahl, Toni, RN RN tl4 Panfilo Perkins RN ll1 Corrections: (The following items were deleted from the chart) 18:24 14:55 BETA HYDROXYBUTYRATE+C.LAB.BRZ ordered. rn tl4
--- NOTE | 2023-06-03 17:31 | ER ---
Nurse's Notes [facility] Name: Cecile Miranda Jr Age: 33 yrs Sex: Male : 1990 Arrival Date: 06/03/2023 Time: 14:42 Bed 20 Private MD: Naun Whittaker Diagnosis: Gastroparesis;Hyperglycemia, unspecified;Dehydration;Constipation, unspecified Presentation: 06/03 14:59 Chief complaint: Patient states: nausea vomiting X 1 week , was seen here last week for iw DKA, also has abd pain, sugar has been high. Coronavirus screen: At this time, the client does not indicate any symptoms associated with coronavirus-19. Ebola Screen: Patient negative for fever greater than or equal to 101.5 degrees Fahrenheit, and additional compatible Ebola Virus Disease symptoms Patient denies exposure to infectious person. Patient denies travel to an Ebola-affected area in the 21 days before illness onset. No symptoms or risks identified at this time. Initial Sepsis Screen: Does the patient meet any 2 criteria? No. Patient's initial sepsis screen is negative. Does the patient have a suspected source of infection? No. Patient's initial sepsis screen is negative. Risk Assessment: Do you want to hurt yourself or someone else? Patient reports no desire to harm self or others. Onset of symptoms was May 27, 2023. 14:59 Method Of Arrival: Ambulatory iw 14:59 Acuity: CARLOS 3 iw Triage Assessment: 17:35 General: Appears in no apparent distress. Behavior is calm, cooperative. Pain: Denies tl4 pain. EENT: No deficits noted. No signs and/or symptoms were reported regarding the EENT system. Neuro: No deficits noted. Cardiovascular: No deficits noted. Respiratory: No deficits noted. GI: Reports nausea, vomiting. : No deficits noted. No signs and/or symptoms were reported regarding the genitourinary system. Derm: No deficits noted. No signs and/or symptoms reported regarding the dermatologic system. Musculoskeletal: No deficits noted. No signs and/or symptoms reported regarding the musculoskeletal system. Historical: - Allergies: 15:00 No Known Allergies; iw - Home Meds: 18:18 metformin 500 mg Oral tablet 2 times per day [Active]; Zofran Oral [Active]; tl4 Promethazine Oral [Active]; omeprazole 40 mg Oral capsule 2 times per day [Active]; Novolin 70/30 [place] Sub-Q 20 unit twice a day [Active]; - PMHx: 15:00 diabetes mellitus; h. pylori; ULCER; iw - Immunization history:: Adult Immunizations unknown. - Family history:: not pertinent. - Social history:: Smoking status: Patient denies any tobacco usage or history of. - Hospitalizations: : No recent hospitalization is reported. Screenin:14 [facility] ED Fall Risk Assessment (Adult) History of falling in the last 3 months, tl4 including since admission No falls in past 3 months (0 pts) Confusion or Disorientation No (0 pts) Intoxicated or Sedated No (0 pts) Impaired Gait No (0 pts) Mobility Assist Device Used No (0 pt) Altered Elimination No (0 pt) Score/Fall Risk Level 0 - 2 = Low Risk Oriented to surroundings, Maintained a safe environment, Educated pt \T\ family on fall prevention, incl call for assistance when getting out of bed, Assessed \T\ reinforced patient's understanding of fall precautions, Provided non-skid footwear, Hourly rounding (assess needs \T\ fall precautionary measures) done, Used ambulatory aids as needed (educated on \T\ assisted with), Used gait belt as appropriate. Abuse screen: Denies threats or abuse. Denies injuries from another. Nutritional screening: No deficits noted. Tuberculosis screening: No symptoms or risk factors identified. Assessment: 17:20 Reassessment: Patient and/or family updated on plan of care and expected duration. Pain ll1 level reassessed. General: Appears uncomfortable, ill, Behavior is calm, cooperative, appropriate for age. GI: Abdomen is flat, Reports nausea, vomiting. Vital Signs: 14:59 BP 146 / 94; Pulse 96; Resp 16; Temp 99.1; Pulse Ox 100% ; Weight 72.57 kg; Height 5 iw ft. 8 in. ; Pain 9/10; 18:16 BP 132 / 88; Pulse 85; Resp 16; Temp 98.3(O); Pulse Ox 99% on R/A; Pain 0/10; tl4 14:59 Body Mass Index 24.33 (72.57 kg, 172.72 cm) iw 14:59 Pain Scale: Adult iw 18:16 Pain Scale: Adult tl4 Licha Coma Score: 18:16 Eye Response: spontaneous(4). Motor Response: obeys commands(6). Verbal Response: tl4 oriented(5). Total: 15. ED Course: 14:45 Patient arrived in ED. mr 14:45 Naun Whittaker MD is Private Physician. mr 14:48 Sanju Zelaya MD is Attending Physician. rn 15:00 Triage completed. iw 15:00 Arm band placed on. iw 15:30 Initial lab(s) drawn, by me, sent to lab. Inserted saline lock: 22 gauge in right iw antecubital area, using aseptic technique. Blood collected. 16:52 CT Abd/Pelvis - IV Contrast Only In Process Unspecified. EDMS 17:20 Patient placed in an exam room, on a stretcher. ll1 17:34 Morgan Galindo, RN is Primary Nurse. tl4 18:14 Patient has correct armband on for positive identification. Bed in low position. Call tl4 light in reach. Side rails up X 1. Provided Education on: ed process. Client placed on continuous cardiac and pulse oximetry monitoring. NIBP monitoring applied. Door closed. Noise minimized. Lights dimmed. Moved to private room. Warm blanket given. 18:15 No provider procedures requiring assistance completed. IV discontinued, intact, tl4 bleeding controlled, No redness/swelling at site. Pressure dressing applied. Administered Medications: 15:42 Drug: NS 0.9% IV 1000 ml IV at 1 bolus Per protocol; 1000 mL bolus Route: IV; Rate: 1 iw bolus; Site: right antecubital; 17:19 Follow up: Response: No adverse reaction; IV Status: Completed infusion; IV Intake: ll1 1000ml 15:42 Drug: Famotidine IVP 20 mg IVP once; dilute with 10 mL 0.9% NaCl; give over 2 minutes iw Route: IVP; Site: right antecubital; 17:20 Follow up: Response: No adverse reaction ll1 15:42 Drug: Ondansetron IVP 4 mg IVP once; over 2 minutes Route: IVP; Site: right antecubital;iw 17:19 Follow up: Response: No adverse reaction ll1 15:42 Drug: metoCLOPramide IVP 10 mg IVP once; over 1 to 2 minutes Route: IVP; Site: right iw antecubital; 17:20 Follow up: Response: No adverse reaction ll1 Medication: 17:36 VIS not applicable for this client. tl4 Point of Care Testing: Blood Glucose: 15:02 Blood Glucose: 261 mg/dL; iw Ranges: Intake: 17:19 IV: 1000ml; Total: 1000ml. ll1 Outcome: 17:30 Discharge ordered by . rn 18:23 Discharged to home ambulatory, tl4 18:23 Condition: stable 18:23 Discharge instructions given to patient, Instructed on discharge instructions, follow up and referral plans. medication usage, Demonstrated understanding of instructions, follow-up care, medications, Prescriptions given X 1, 18:24 Patient left the ED. tl4 Signatures: Dispatcher [employer] EDMS Magi Hamilton, Reg Reg mr Marybeth Castillo, Sanju Olivarez RN, MD MD rn Lewis, Lynsay, RN RN ll1 Morgan Galindo RN RN tl4
[2023-06-03 19:01] VITALS: BP 132/88; TEMP 98.3; O2SAT 99
== END ==
LOC: ER 14:42
DX: E11.43 Type 2 diabetes mellitus with diabetic autonomic (poly)neuropathy (principal); E11.65 Type 2 diabetes mellitus with hyperglycemia; K31.84 Gastroparesis; E86.0 Dehydration; K59.00 Constipation, unspecified; Z11.52 Encounter for screening for COVID-19
CPT/HCPCS: 85025; 81001; 36415; 82947; 83690; 80053; 82010; 87804 ×2; 74177; 87811; Q9967; J2765; J2405; J7030

== ENCOUNTER 2023-09-30 19:31 | Inpatient (IN) | payer OTHER ==
[2023-09-30] MEDS ORDERED: ONDANSETRON 4 MG/2 ML VIAL ONE (20:16)
[2023-09-30] MEDS ORDERED: NA CHLORIDE 0.9% 1,000 ML ONE (20:17)
[2023-09-30] MEDS ORDERED: METOCLOPRAMIDE 10 MG/2mL INJ ONE (20:17)
[2023-09-30] MEDS ORDERED: PANTOPRAZOLE 40 MG INJ ONE (20:17)
[2023-09-30] MEDS ORDERED: MORPHINE 4 MG/ML SYR ONE (20:17)
[2023-09-30 21:02] LABS: Absolute Basophils 0.1 K/uL (0-0.5); Absolute Lymphocytes (CBC) 1.9 K/uL (0.7-4.9); Absolute Monocytes 0.4 K/uL (0.1-1.3); Absolute Neutrophil 5.5 K/uL (1.8-8.0); Basophils % 1.6 % (0-1.3); Eosinophils % 0.1 % (0-4.4); Hematocrit 45.7 % (39.6-49.0); Hemoglobin 15.4 g/dL (13.6-17.9); Lymphocytes % 24.5 % (15.3-44.8); MCH 30.2 pg (27.0-35.0); MCHC 33.7 g/dL (32.0-36.0); MCV 89.6 fL (80-100); MPV 7.7 fL (7.6-11.3); Monocytes % 4.7 % (3.3-12.3); Neutrophils % 69.1 % (41.7-73.7); Nucleated Red Blood Cells % 0.3 % (0-0); Platelets 305 thou/uL (152-406); RBC Red Blood Cell Count 5.09 M/uL (4.33-5.43); Red Cell Distribution Width 12.4 % (12.1-15.2)
[2023-09-30 21:21] LABS: ALT/SGPT 24 U/L (16-61); Albumin 4.5 g/dL (3.4-5.0); Alkaline Phosphatase 79 U/L (45-117); Anion Gap 13.8 mEq/L (5.0-15.0); BUN Blood Urea Nitrogen 20 mg/dL (7-18); Bicarbonate 27 mEq/L (21-32); Globulin 4.3 g/dL (2.3-3.5); Glomerular Filtration Rate 79 ml/min (=/>90); Glucose Level 237 mg/dL (74-106); Lipase 27 U/L (13-75); Potassium 3.8 mEq/L (3.5-5.1); Protein, Total 8.8 g/dL (6.4-8.2); Sodium Level 134 mEq/L (136-145)
[2023-09-30 21:22] LABS: AST/SGOT < 10 U/L (15-37)
[2023-09-30 22:12] LABS: Specific Gravity > 1.030 (1.005-1.030); Sqamous Epithelial <5 /HPF (None Seen); Urine Bacteria None Seen /HPF (<20); Urine Bilirubin NEGATIVE (Negative); Urine Blood Negative (Negative); Urine Clarity Clear (Clear); Urine Color Yellow (Yellow); Urine Culture Reflex Order NOT NEEDED; Urine Glucose 4+ (Over) (Negative); Urine Ketones 4+ (Over) (Negative); Urine Microscopic Reflex YN ORDER UMIC; Urine Mucus 1+ /HPF (None Seen); Urine Nitrite NEGATIVE (Negative); Urine Protein 1+ (Negative); Urine RBC None Seen /HPF (None Seen); Urine Urobilinogen Normal (Normal); Urine WBC <5 /HPF (<5); Urine pH 6.5 (5.0-7.0)
[2023-09-30] MEDS ORDERED: Ringers Lactate 1,000 ML IV ONE (22:30)
--- NOTE | 2023-09-30 22:43 | ER ---
Nurse's Notes [facility] Name: Cecile Miranda Jr Age: 33 yrs Sex: Male : 1990 Arrival Date: 09/30/2023 Time: 19:31 Bed 16 Private MD: Diagnosis: Gastroparesis, dehydration Presentation: 09/29 19:47 Chief complaint: Patient states: Pt c/o diffuse abdominal pain, nausea, vomiting and tl4 back pain since Thursday. Pt states he has been unable to eat or drink anything. Pt states he has an ongoing history of similar episodes. Coronavirus screen: At this time, the client does not indicate any symptoms associated with coronavirus-19. Ebola Screen: No symptoms or risks identified at this time. Initial Sepsis Screen: Does the patient meet any 2 criteria? No. Patient's initial sepsis screen is negative. Does the patient have a suspected source of infection? No. Patient's initial sepsis screen is negative. Risk Assessment: Do you want to hurt yourself or someone else? Patient reports no desire to harm self or others. Onset of symptoms was September 25, 2023. 19:47 Method Of Arrival: Ambulatory tl4 19:47 Acuity: CARLOS 3 tl4 Triage Assessment: 19:53 General: Appears uncomfortable, Behavior is cooperative. Pain: Complains of pain in tl4 back and abdomen. EENT: No signs and/or symptoms were reported regarding the EENT system. Neuro: Level of Consciousness is awake, alert, obeys commands, Oriented to person, place, time, situation, Moves all extremities. Full function Gait is steady. Cardiovascular: Capillary refill < 3 seconds Patient's skin is warm and dry. Respiratory: Airway is patent Respiratory effort is even, unlabored, Respiratory pattern is regular, symmetrical. GI: Reports lower abdominal pain, upper abdominal pain, diarrhea, nausea, vomiting. : No signs and/or symptoms were reported regarding the genitourinary system. Derm: No signs and/or symptoms reported regarding the dermatologic system. Musculoskeletal: No signs and/or symptoms reported regarding the musculoskeletal system. Historical: - Allergies: 19:51 No Known Allergies; tl4 - PMHx: 19:51 diabetes mellitus; h. pylori; ULCER; tl4 - Immunization history:: Adult Immunizations unknown. - Infectious Disease History:: Denies. - Social history:: Smoking status: Patient/guardian denies using tobacco, Stopped _ months ago 6. Screenin:00 [facility] ED Fall Risk Assessment (Adult) History of falling in the last 3 months, nj1 including since admission No falls in past 3 months (0 pts) Confusion or Disorientation No (0 pts) Intoxicated or Sedated No (0 pts) Impaired Gait No (0 pts) Mobility Assist Device Used No (0 pt) Altered Elimination No (0 pt) Score/Fall Risk Level 0 - 2 = Low Risk Oriented to surroundings, Maintained a safe environment, Hourly rounding (assess needs \T\ fall precautionary measures) done. Abuse screen: Denies threats or abuse. Denies injuries from another. Nutritional screening: No deficits noted. Tuberculosis screening: No symptoms or risk factors identified. Assessment: 20:40 General: Appears in no apparent distress. uncomfortable, Behavior is calm, cooperative, nj1 appropriate for age. 20:40 Pain: Complains of pain in back and abdomen Pain currently is 10 out of 10 on a pain nj1 scale. Neuro: Level of Consciousness is awake, alert, obeys commands, Oriented to person, place, time, situation. Cardiovascular: Patient's skin is warm and dry. Respiratory: Airway is patent Respiratory effort is even, unlabored. GI: Reports lower abdominal pain, upper abdominal pain, intolerance of fluids, intolerance of food, nausea, vomiting. 22:15 General: Appears in no apparent distress. uncomfortable, Behavior is calm, cooperative, jj7 appropriate for age. GI: Reports intolerance of food, nausea. Vital Signs: 19:47 BP 156 / 106; Pulse 112; Resp 20; Temp 99.6(TE); Pulse Ox 100% on R/A; Weight 77.11 kg; tl4 Height 5 ft. 8 in. ; Pain 10/10; 20:56 BP 133 / 95; Pulse 89; Resp 18; Pulse Ox 98% on R/A; Pain 10/10; nj1 22:38 BP 146 / 104; Pulse 95; Resp 17; Pulse Ox 100% ; jj7 23:30 BP 152 / 91; Pulse 91; Resp 19; Pulse Ox 100% ; jj7 09/30 00:30 BP 123 / 93; Pulse 83; Resp 16; Pulse Ox 97% ; jj7 09/29 19:47 Body Mass Index 25.85 (77.11 kg, 172.72 cm) tl4 09/29 19:47 Pain Scale: Adult tl4 20:56 Pain Scale: Adult nj1 ED Course: 09/29 19:43 Patient arrived in ED. tl4 19:51 Triage completed. tl4 19:56 Arm band placed on left wrist. tl4 20:02 Guanakito Sosa MD is Attending Physician. sp3 20:12 Moraima Briceno RN is Primary Nurse. nj1 20:40 Inserted saline lock: 20 gauge in right upper arm, using aseptic technique. Blood nj1 collected. Ultrasound guided. Catheter tip well visualized within vasculature during placement. 21:01 Patient has correct armband on for positive identification. Bed in low position. Call nj1 light in reach. Adult w/ patient. Provided Education on: call light, fall precautions. 22:37 Diet: Patient given ice chips. jj7 22:42 Soham Ramos MD is Hospitalizing Provider. sp3 09/30 07:22 No provider procedures requiring assistance completed. Patient admitted, IV remains in mb9 place. Administered Medications: 09/29 20:40 Drug: NS 0.9% IV 1000 ml IV at 1 bolus Per protocol; 1000 mL bolus Route: IV; Rate: 1 nj1 bolus; Site: right upper arm; 22:10 Follow up: IV Status: Completed infusion jj7 20:40 Drug: Ondansetron IVP 4 mg IVP once; over 2 minutes Route: IVP; Site: right upper arm; nj1 22:10 Follow up: Response: Nausea is decreased jj7 20:42 Drug: metoCLOPramide IVP 10 mg IVP once; over 1 to 2 minutes Route: IVP; Site: right nj1 upper arm; 23:09 Follow up: Response: Nausea is decreased jj7 20:44 Drug: Pantoprazole IVP 40 mg IVP once Route: IVP; Site: right upper arm; nj 23:09 Follow up: Response: Marked relief of symptoms jj7 20:45 Drug: morphine IVP or IV 4 mg IVP once over 4 mins Route: IVP; Infused Over: 4 mins; nj1 Site: right upper arm; 23:10 Follow up: Response: Marked relief of symptoms; Pain is decreased jj7 22:37 Drug: Lactated Ringers Solution IV 1000 ml IV at 1000 bolus continuous Route: IV; Rate: jj7 1000 bolus; Site: right antecubital; 23:09 Drug: Promethazine IVP 12.5 mg IVP once Route: IVP; Site: right antecubital; jj7 Medication: 22:15 VIS not applicable for this client. jj7 Outcome: 22:42 Decision to Hospitalize by Provider. sp3 09/30 07:22 Admitted to ER Hold. Please see [facility] for further documentation. mb9 Condition: stable Instructed on the need for admit, 12:00 Patient left the ED. cm10 Signatures: Guanakito Sosa MD MD sp3 Darrell Luna RN RN jj7 Magi Varela RN RN mb9 Moraima Briceno RN RN nj1 Divya Tanner RN RN cm10 Morgan Galindo RN RN tl4 Corrections: (The following items were deleted from the chart) 09/29 20:59 20:55 General: Appears nj1 nj1
--- NOTE | 2023-09-30 22:43 | EDPHYS ---
Physician Documentation [facility] Name: Cecile Miranda Jr Age: 33 yrs Sex: Male : 1990 Arrival Date: 09/30/2023 Time: 19:31 Bed 16 Private MD: ED Physician Guanakito Sosa HPI: 09/29 20:11 This 33 yrs old Black Male presents to ER via Ambulatory with complaints of vomiting, sp3 gastroparesis and abdominal pain. 20:11 33-year-old male with history of diabetes, H. pylori and peptic ulcer disease, multiple sp3 episodes of gastroparesis presents to the ED with chief complaint vomiting, abdominal cramping and decreased p.o. intake. Patient states that the Protonix has been helping quite a bit but today he has had an episode where things have gotten worse. He denies any blood or mucus in his emesis. He denies any diarrhea or lower abdominal pain. Denies any back pain, chest pain, shortness of breath, fever, potential bad food, known sick contacts, travel history or any other signs or symptoms on ROS at this time.. Historical: - Allergies: 19:51 No Known Allergies; tl4 - PMHx: 19:51 diabetes mellitus; h. pylori; ULCER; tl4 - Immunization history:: Adult Immunizations unknown. - Infectious Disease History:: Denies. - Social history:: Smoking status: Patient/guardian denies using tobacco, Stopped _ months ago 6. ROS: 20:12 Constitutional: Negative for fever, chills, and weight loss, Eyes: Negative for injury, sp3 pain, redness, and discharge, ENT: Negative for injury, pain, and discharge, Neck: Negative for injury, pain, and swelling, Cardiovascular: Negative for chest pain, palpitations, and edema, Respiratory: Negative for shortness of breath, cough, wheezing, and pleuritic chest pain, Back: Negative for injury and pain, MS/Extremity: Negative for injury and deformity, Skin: Negative for injury, rash, and discoloration, Neuro: Negative for headache, weakness, numbness, tingling, and seizure, Psych: Negative for depression, anxiety, suicide ideation, homicidal ideation, and hallucinations, Allergy/Immunology: Negative for hives, rash, and allergies, Endocrine: Negative for neck swelling, polydipsia, polyuria, polyphagia, and marked weight changes, Hematologic/Lymphatic: Negative for swollen nodes, abnormal bleeding, and unusual bruising, 20:12 All other systems are negative, Exam: 20:13 Constitutional: This is a well developed, well nourished patient who is awake, alert, sp3 and in no acute distress. Head/Face: Normocephalic, atraumatic. Eyes: Pupils equal round and reactive to light, extra-ocular motions intact. Lids and lashes normal. Conjunctiva and sclera are non-icteric and not injected. Cornea within normal limits. Periorbital areas with no swelling, redness, or edema. ENT: Nares patent. No nasal discharge, no septal abnormalities noted. External auditory canals are clear. Oropharynx with no redness, swelling, or masses, exudates, or evidence of obstruction, uvula midline. Mucous membranes moist. Neck: Trachea midline, no thyromegaly or masses palpated, and no cervical lymphadenopathy. Supple, full range of motion without nuchal rigidity, or vertebral point tenderness. No Meningismus. Chest/axilla: Normal chest wall appearance and motion. Nontender with no deformity. No lesions are appreciated. Respiratory: Lungs have equal breath sounds bilaterally, clear to auscultation and percussion. No rales, rhonchi or wheezes noted. No increased work of breathing, no retractions or nasal flaring. Back: No spinal tenderness. No costovertebral tenderness. Full range of motion. Skin: Warm, dry with normal turgor. Normal color with no rashes, no lesions, and no evidence of cellulitis. MS/ Extremity: Pulses equal, no cyanosis. Neurovascular intact. Full, normal range of motion. Neuro: Awake and alert, GCS 15, oriented to person, place, time, and situation. Cranial nerves II-XII grossly intact. Motor strength 5/5 in all extremities. Sensory grossly intact. Cerebellar exam normal. Normal gait. Psych: Awake, alert, with orientation to person, place and time. Behavior, mood, and affect are within normal limits. 20:13 Cardiovascular: Patient mildly tachycardic in the 110 range. Mild epigastric pain to palpation without peritoneal signs, rebound or guarding., Vital Signs: 19:47 BP 156 / 106; Pulse 112; Resp 20; Temp 99.6(TE); Pulse Ox 100% on R/A; Weight 77.11 kg; tl4 Height 5 ft. 8 in. ; Pain 10/10; 20:56 BP 133 / 95; Pulse 89; Resp 18; Pulse Ox 98% on R/A; Pain 10/10; nj1 22:38 BP 146 / 104; Pulse 95; Resp 17; Pulse Ox 100% ; jj7 23:30 BP 152 / 91; Pulse 91; Resp 19; Pulse Ox 100% ; 7 09/30 00:30 BP 123 / 93; Pulse 83; Resp 16; Pulse Ox 97% ; 7 09/29 19:47 Body Mass Index 25.85 (77.11 kg, 172.72 cm) tl4 09/29 19:47 Pain Scale: Adult tl4 20:56 Pain Scale: Adult nj1 MDM: 09/29 20:02 Patient medically screened. sp3 20:13 Data reviewed: vital signs, nurses notes, old medical records, lab test result(s). ED sp3 course: 33-year-old male with vomiting and epigastric abdominal pain and feelings of dehydration. Patient is had multiple episodes of gastroparesis in the past. Old records reviewed and demonstrates May of this year patient had a CT scan of the abdomen pelvis which demonstrated no acute findings. Differential diagnosis today includes gastroparesis, abdominal cramping, constipation, and to a lesser degree any surgical abnormality including ileus and/or obstruction or other biliary, pancreatic or gastric pathology. I am not highly suspicious for acute abdomen and surgical abdomen or perforated ulcer or viscus. Patient is afebrile I am not highly suspicious of shock or sepsis. Patient likely is dehydrated. We will treat with IV fluids, morphine, Zofran, Reglan and Protonix IV. Disposition pending workup and patient course with laboratory values pending. Imaging not currently indicated.. 22:41 ED course: Patient still nauseated and feels very dehydrated. Second liter of IV fluids sp3 going in. Will place in joint her observation and reevaluate in the morning. Lactate added on as well.. 09/29 20:06 Order name: CBC with Diff; Complete Time: 21:10 sp3 09/29 20:06 Order name: CMP; Complete Time: 21:29 sp3 09/29 20:06 Order name: Lipase; Complete Time: 21:29 sp3 09/29 20:06 Order name: Urinalysis w/ reflexes; Complete Time: 22:16 sp3 09/29 22:40 Order name: Lactate w/ 2H reflex if indic. sp3 09/29 22:51 Order name: Urinalysis w/ reflexes EDMS 09/29 22:53 Order name: Urinalysis w/ reflexes EDMS 09/29 22:53 Order name: CBC with Automated Diff EDMS 09/29 22:53 Order name: CBC with Automated Diff EDMS 09/29 22:53 Order name: Comprehensive Metabolic Panel EDMS 09/29 22:53 Order name: Comprehensive Metabolic Panel EDMS 09/30 05:37 Order name: Glucose, Ancillary Testing EDMS 09/30 07:37 Order name: Glucose, Ancillary Testing EDMS 09/30 11:26 Order name: Glucose, Ancillary Testing EDMS 09/29 19:52 Order name: Glucose Level; Complete Time: 21:33 rn 09/29 20:06 Order name: IV Saline Lock; Complete Time: 20:53 sp3 09/29 20:06 Order name: Labs collected and sent; Complete Time: 20:53 sp3 Administered Medications: 20:40 Drug: NS 0.9% IV 1000 ml IV at 1 bolus Per protocol; 1000 mL bolus Route: IV; Rate: 1 nj1 bolus; Site: right [facility] arm; 22:10 Follow up: IV Status: Completed infusion jj7 20:40 Drug: Ondansetron IVP 4 mg IVP once; over 2 minutes Route: IVP; Site: right upper arm; [facility] 22:10 Follow up: Response: Nausea is decreased jj7 20:42 Drug: metoCLOPramide IVP 10 mg IVP once; over 1 to 2 minutes Route: IVP; Site: right [address]; 23:09 Follow up: Response: Nausea is decreased jj7 20:44 Drug: Pantoprazole IVP 40 mg IVP once Route: IVP; Site: right upper arm; [facility] 23:09 Follow up: Response: Marked relief of symptoms jj7 20:45 Drug: morphine IVP or IV 4 mg IVP once over 4 mins Route: IVP; Infused Over: 4 mins; [facility] Site: right upper arm; 23:10 Follow up: Response: Marked relief of symptoms; Pain is decreased jj7 22:37 Drug: Lactated Ringers Solution IV 1000 ml IV at 1000 bolus continuous Route: IV; Rate: jj7 1000 bolus; Site: right antecubital; 23:09 Drug: Promethazine IVP 12.5 mg IVP once Route: IVP; Site: right antecubital; jj7 Disposition Summary: 09/30/23 22:42 Hospitalization Ordered Notes: Hospitalization Status: Observation sp3 Provider: Soham Ramos sp3 Condition: Stable sp3 Problem: an acute exacerbation sp3 Symptoms: have worsened sp3 Bed/Room Type: Standard sp3 Location: Telemetry/MedSurg (observation)(10/01/23 11:37) [facility] Room Assignment: [facility](10/01/23 11:37) [facility] Diagnosis - Gastroparesis, dehydration sp3 Forms: - Medication Reconciliation Form sp3 - SBAR form sp3 - Leadership Thank You Letter sp3 Signatures: Dispatcher [employer] EDMS Sanju Zelaya MD MD rn Blanchard, Shelby, RN RN ss Patel, Setul, MD MD sp3 Darrell Luna RN RN jj7 Moraima Briceno RN RN nj1 [place] [id number] Morgan Galindo RN RN tl4 Corrections: (The following items were deleted from the chart) 20:06 20:06 CBC+H.LAB.BRZ ordered. EDMS EDMS 20:07 20:06 COMPREHENSIVE METABOLIC PANEL+C.LAB.BRZ ordered. EDMS EDMS 20:07 20:06 LIPASE+C.LAB.BRZ ordered. EDMS EDMS 20:07 20:06 Urinalysis+U.LAB.BRZ ordered. EDMS EDMS 09/30 01:39 09/29 22:42 Telemetry/MedSurg (observation) sp3 09/30 01:39 09/29 22:42 sp3 09/30 11:37 01:39 [facility] ER HOLD jr12 11:37 01:39 ERHOLD- jr12
--- NOTE | 2023-09-30 22:47 | P.HP ---
Certification for Inpatient Patient admitted to: Observation With expected LOS: <2 Midnights Practitioner: I am a practitioner with admitting privileges, knowledge of patient current condition, hospital course, and medical plan of care. Services: Services provided to patient in accordance with Admission requirements found in Title 42 Section 412.3 of the Code of Federal Regulations Patient History Date of Service: 10/01/23 Reason for admission: Intractable nausea and vomiting History of Present Illness: 33 yrs old Male with past medical history of diabetes mellitus, peptic ulcer disease, H. pylori, brought to ER with intractable nausea and vomiting. Patient has a history of gastroparesis and abdominal pain. Patient started having nausea and vomiting started today and has been progressively getting worse. Denies any chest pain or shortness of breath. Patient also complains of dull aching pain in abdomen. Denies any fever or chills. Denies any history of pancreatitis Patient was assessed in the ER and was found to be in dehydration and intractable nausea vomiting and was admitted for further management. Allergies No Known Allergies Allergy (Unverified 05/31/22 23:57) Home medications list reviewed: Yes Home Medications: Insulin 70/30 NPH/Reg Human [Novolin 70/30*] 10 units SQ SEECOM 05/25/23 Metformin HCl [Glucophage*] 500 mg PO BIDAC 05/25/23 Pantoprazole [Protonix Tab*] 40 mg PO DAILY 05/25/23 Metoclopramide HCl [Reglan] 10 mg PO TID* PRN #21 tab 09/10/23 Pantoprazole [Protonix Tab*] 40 mg PO DAILY #30 tab 09/10/23 - Past Medical/Surgical History Diabetic: Yes Past Medical History: Reviewed- Non-Contributory -: Type 1 Diabetes -: GERD -: Gastroparesis -: H. pylori, gastric ulcers Past Surgical History: Reviewed- Non-Contributory -: None Psychosocial/ Personal History: Patient is . - Family History Family History: Reviewed- Non-Contributory - Family History Father -: Heart disease, Hypertension, Diabetes Mother -: Heart disease, Hypertension, Diabetes - Social History Smoking Status: Current some day smoker Alcohol use: No CD- Drugs: No Caffeine use: Yes Review of Systems 10-point ROS is otherwise unremarkable Physical Examination - Vital Signs Temperature: 97.8 F Blood Pressure: 128/62 Pulse: 78 Respirations: 18 Pulse Ox (%): 94 - Physical Exam General: Alert, Oriented x3, Mild distress HEENT: Atraumatic, Normocephalic Neck: Supple, 2+ carotid pulse no bruit Respiratory: Clear to auscultation bilaterally, Normal air movement Cardiovascular: Normal pulses, Regular rate/rhythm, Normal S1 S2 Capillary refill: <2 Seconds Gastrointestinal: Soft and benign, W/out hepatosplenomegaly, No ascites Musculoskeletal: No clubbing, No swelling Integumentary: No rashes, No breakdown Neurological: Normal strength at 5/5 x4 extr, Sensation intact, Cranial nerves 3-12 intact, Normal reflexes 2+, Normal affect Lymphatics: No axilla or inguinal lymphadenopathy - Studies Laboratory Data (last 24 hrs) 09/30/23 09/30/23 20:40 20:40 WBC 7.90 Hgb 15.4 Hct 45.7 Plt Count 305 Sodium 134 L Potassium 3.8 BUN 20 H Creatinine 1.24 Glucose 237 H Total Bilirubin 1.0 AST < 10 L ALT 24 Alkaline Phosphatase 79 Lipase 27 Assessment and Plan - Problems (Diagnosis) (1) Gastroparesis due to DM Current Visit: No Status: Acute (2) Nausea & vomiting Current Visit: No Status: Acute Plan: Intractable nausea vomiting Started on Zofran IV hydration Will keep n.p.o. for now Monitor volume status closely Hyponatremia Acute renal insufficiency IV hydration Monitor electrolytes and replace accordingly Diabetes with hyperglycemia Insulin sliding scale Will also start basal insulin Will get an A1c in a.m. GERD Will start on PPI GI/DVT prophylaxis Advance directive full code Discharge Plan: Home Plan to discharge in: 48 Hours - Advance Directives Does patient have a Living Will: No Does patient have a Durable POA for Healthcare: No - Code Status/Comfort Care Code Status: Full Code Time Spent Managing Pts Care (In Minutes): 48
[2023-09-30] MEDS ORDERED: PROMETHAZINE INJ 25 MG/ML AMP ONE (23:04)
[2023-10-01 02:35] VITALS: BMI 25.8
[2023-10-01 04:53] LABS: Absolute Basophils 0.1 K/uL (0-0.5); Absolute Monocytes 0.4 K/uL (0.1-1.3); Basophils % 0.9 % (0-1.3); Eosinophils % 0.5 % (0-4.4); Hematocrit 35.6 % (39.6-49.0); Hemoglobin 12.4 g/dL (13.6-17.9); Lymphocytes % 30.9 % (15.3-44.8); MCH 30.9 pg (27.0-35.0); MCHC 34.9 g/dL (32.0-36.0); MCV 88.4 fL (80-100); MPV 7.5 fL (7.6-11.3); Monocytes % 6.1 % (3.3-12.3); Neutrophils % 61.6 % (41.7-73.7); Nucleated Red Blood Cells % 0.1 % (0-0); Platelets 257 thou/uL (152-406); RBC Red Blood Cell Count 4.03 M/uL (4.33-5.43); Red Cell Distribution Width 12.2 % (12.1-15.2)
[2023-10-01 05:09] LABS: ALT/SGPT 17 U/L (16-61); Albumin 3.3 g/dL (3.4-5.0); Albumin/Globulin Ratio 1.1 (1.1-1.8); Alkaline Phosphatase 50 U/L (45-117); Anion Gap 8.7 mEq/L (5.0-15.0); BUN Blood Urea Nitrogen 19 mg/dL (7-18); Bicarbonate 28 mEq/L (21-32); Bilirubin Total 0.7 mg/dL (0.2-1.0); Globulin 2.9 g/dL (2.3-3.5); Glomerular Filtration Rate 95 ml/min (=/>90); Glucose Level 188 mg/dL (74-106); Potassium 3.7 mEq/L (3.5-5.1); Protein, Total 6.2 g/dL (6.4-8.2); Sodium Level 136 mEq/L (136-145)
[2023-10-01 05:14] LABS: AST/SGOT < 10 U/L (15-37)
[2023-10-01] MEDS ORDERED: NA CHLORIDE 0.9% 1,000 ML ONE (05:18)
[2023-10-01] MEDS: NA CHLORIDE 0.9% 1,000 ML IV SCH (05:29)
[2023-10-01] MEDS ORDERED: GLUCAGON 1 MG/VIAL IM PRN (05:31)
[2023-10-01] MEDS ORDERED: D50W 25 GM/50 ML SYRINGE IV PRN (05:31)
[2023-10-01] MEDS ORDERED: D10W 125 ML IV PRN (05:38)
[2023-10-01] MEDS: INSULIN REGULAR (HUMAN) 100 UNIT/ML SQ SCH (07:30)
[2023-10-01] MEDS ORDERED: INSULIN REGULAR (HUMAN) 100 UNIT/ML ONE (07:33)
[2023-10-01] MEDS ORDERED: ONDANSETRON 4 MG/2 ML VIAL ONE (08:17)
[2023-10-01] MEDS ORDERED: ACETAMINOPHEN 325 MG TABLET ONE (08:17)
[2023-10-01] MEDS: ACETAMINOPHEN 325 MG TABLET PO PRN (08:21)
[2023-10-01] MEDS: ONDANSETRON 4 MG/2 ML VIAL IV PRN (08:21)
[2023-10-01] MEDS: ENOXAPARIN 40 MG/0.4 ML SQ SCH (09:00)
[2023-10-01] MEDS ORDERED: ENOXAPARIN 40 MG/0.4 ML SQ ONE (09:21)
--- NOTE | 2023-10-01 16:14 | P.PN ---
Subjective Date of Service: 10/01/23 Chief Complaint: Intractable nausea and vomiting Patient reports persistent nausea and vomiting. Physical Examination - Vital Signs Temperature: 98.4 F Blood Pressure: 146/80 Pulse: 85 Respirations: 16 Pulse Ox (%): 98 - Studies Laboratory Data (last 24 hrs) 09/30/23 09/30/23 20:40 20:40 WBC 7.90 Hgb 15.4 Hct 45.7 Plt Count 305 Sodium 134 L Potassium 3.8 BUN 20 H Creatinine 1.24 Glucose 237 H Total Bilirubin 1.0 AST < 10 L ALT 24 Alkaline Phosphatase 79 Lipase 27 Assessment And Plan - Plan Physical Exam General: Alert, Oriented x3, NAD Neck: Supple, 2+ carotid pulse no bruit Respiratory: Clear to auscultation bilaterally, Normal air movement Cardiovascular: Normal pulses, Regular rate/rhythm, Normal S1 S2 Gastrointestinal: Soft and benign, W/out hepatosplenomegaly, No ascites Musculoskeletal: No clubbing, No swelling Integumentary: No rashes, No breakdown Neurological: Normal strength at 5/5 x4 extr, Sensation intact, Cranial nerves 3-12 intact, Normal reflexes 2+, Normal affect Lymphatics: No axilla or inguinal lymphadenopathy Assessment and Plan Gastroparesis due to DM Intractable nausea & vomiting Continue antiemetics-IV Zofran as needed Scheduled Reglan IV IV hydration Clear liquid diet Monitor volume status closely Hyponatremia Resolved with IV hydration. Monitor electrolytes and replace accordingly Diabetes with hyperglycemia Insulin sliding scale since patient is n.p.o. Will start basal insulin once patient tolerates oral intake. Will get an A1c in a.m. GERD May be contributing to the nausea and vomiting. IV Protonix. DVT prophylaxis Advance directive full code
[2023-10-01] MEDS ORDERED: MAGNES/ALUMIN/SIMET 30ML UCUP PO PRN (16:19)
[2023-10-01] MEDS ORDERED: SODIUM CHLORIDE 0.9% 10ML INJ IV PRN (16:19)
[2023-10-01] MEDS: PANTOPRAZOLE 40 MG INJ IVP SCH (19:40)
[2023-10-01] MEDS: METOCLOPRAMIDE 10 MG/2mL INJ IV PRN (19:40)
[2023-10-01] MEDS ORDERED: MORPHINE 2 MG/ML SYR IV PRN (19:49)
[2023-10-01] MEDS: MORPHINE 4 MG/ML SYR ONE (21:04)
[2023-10-01 21:22] VITALS: O2SAT 98
[2023-10-01] MEDS ORDERED: HYDROCODONE/APAP 7.5/325 MG TAB PO PRN (22:27)
[2023-10-01] MEDS ORDERED: MORPHINE 4 MG/ML SYR IV PRN (22:27)
[2023-10-02] MEDS ORDERED: HYDRALAZINE HCL 20 MG/ML VIAL IV PRN (03:31)
--- NOTE | 2023-10-02 17:29 | P.DS ---
Admission Date: 10/02/23 Discharge Date: 10/02/23 Disposition: ROUTINE DISCHARGE Discharge Condition: FAIR Reason for Admission: Intractable nausea and vomiting Brief History of Present Illness: 33 yrs old Male with past medical history of diabetes mellitus, peptic ulcer disease, H. pylori, presented to the ER with intractable nausea and vomiting. Patient has a history of gastroparesis and abdominal pain. Patient started having nausea and vomiting a week prior which became progressively getting worse, not able to tolerate anything p.o. symptoms associated with dull aching abdominal pain. He denied any history of pancreatitis. Patient was assessed in the ER and was found to be in dehydration and intractable nausea vomiting and was admitted for further management. Hospital Course: The following medical problems were addressed during the hospital stay. Diagnosis Intractable nausea and vomiting Gastroparesis secondary to diabetes mellitus History of H. pylori gastritis Hyponatremia Diabetes with hyperglycemia Gastroparesis due to DM Intractable nausea & vomiting Patient was treated with scheduled IV Reglan IV Zofran as needed He was hydrated with IV normal saline. Symptoms improved, diet advanced to soft consistency which she tolerated. Patient reports feeling much better today, tolerating his food and his medications. He is deemed stable for discharge. Hyponatremia Resolved with IV hydration. Diabetes with hyperglycemia Blood sugar was managed with insulin sliding scale. Novolin 70/30 insulin and metformin resumed on discharge. GERD History of H. pylori gastritis Managed with IV protonix Patient is discharged with Protonix 40 mg twice daily Vital Signs/Physical Exam: Temp Pulse Resp BP Pulse Ox 98.4 F 85 16 146/80 H 98 10/02/23 17:19 10/02/23 17:19 10/02/23 17:19 10/02/23 17:19 10/02/23 17:19 General: Alert, In no apparent distress, Oriented x3 HEENT: Mucous membr. moist/pink Neck: Supple, JVD not distended Respiratory: Clear to auscultation bilaterally, Normal air movement Cardiovascular: No edema, Regular rate/rhythm, Normal S1 S2 Gastrointestinal: Normal bowel sounds, Soft and benign, Non-distended, No tenderness Musculoskeletal: No swelling Integumentary: No rashes, No cyanosis Neurological: Normal strength at 5/5 x4 extr Laboratory Data at Discharge: WBC 6.50 thou/uL (4.3-10.9) 10/01/23 04:44 Hgb 12.4 g/dL (13.6-17.9) L D 10/01/23 04:44 Hct 35.6 % (39.6-49.0) L 10/01/23 04:44 Plt Count 257 thou/uL (152-406) 10/01/23 04:44 Sodium 136 mEq/L (136-145) 10/01/23 04:44 Potassium 3.7 mEq/L (3.5-5.1) 10/01/23 04:44 BUN 19 mg/dL (7-18) H 10/01/23 04:44 Creatinine 1.07 mg/dL (0.70-1.30) 10/01/23 04:44 Glucose 188 mg/dL (74-106) H 10/01/23 04:44 Total Bilirubin 0.7 mg/dL (0.2-1.0) 10/01/23 04:44 AST < 10 U/L (15-37) L 10/01/23 04:44 ALT 17 U/L (16-61) 10/01/23 04:44 Alkaline Phosphatase 50 U/L (45-117) D 10/01/23 04:44 Lipase 27 U/L (13-75) 09/30/23 20:40 Home Medications: Insulin 70/30 NPH/Reg Human [Novolin 70/30*] 10 units SQ SEECOM 05/25/23 Metformin HCl [Glucophage*] 500 mg PO BIDAC 05/25/23 Hydrocodone 7.5/APAP 325 [[place] 7.5/325 mg*] 1 tab PO Q4H PRN #15 tab 10/02/23 Metoclopramide HCl [Reglan] 10 mg PO TID* PRN #45 tab 10/02/23 Pantoprazole [Protonix Tab*] 40 mg PO BID #60 tab 10/02/23 New Medications: Hydrocodone 7.5/APAP 325 [[place] 7.5/325 mg*] 1 tab PO Q4H PRN #15 tab PRN Reason: Pain Scale 5-7 (Moderate) Pantoprazole [Protonix Tab*] 40 mg PO BID #60 tab Metoclopramide HCl [Reglan] 10 mg PO TID* PRN #45 tab PRN Reason: Nausea / Vomiting Diet: ADA Activity: Ad becka Followup: John Lord DO [Primary Care Provider] - 1-2 Weeks Time spent managing pt's care (in minutes): 39
[2023-10-02 17:34] VITALS: BP 146/80; TEMP 98.4
== END 2023-10-02 18:39 | disposition home or self-care (01) | DRG 74 ==
LOC: ER 19:31 → ERHOLD 22:48 → 2ND 10-01 12:36 → OBSVTOIN 10-02 10:28
PROVIDERS: ADMIT Family Medicine; ATTEND Internal Medicine
DX: E11.43 Type 2 diabetes mellitus with diabetic autonomic (poly)neuropathy (principal); E87.1 Hypo-osmolality and hyponatremia; K31.84 Gastroparesis; E11.65 Type 2 diabetes mellitus with hyperglycemia; E86.0 Dehydration; N28.9 Disorder of kidney and ureter, unspecified; K21.9 Gastro-esophageal reflux disease without esophagitis; Z79.4 Long term (current) use of insulin; Z79.84 Long term (current) use of oral hypoglycemic drugs; Z79.899 Other long term (current) drug therapy; Z87.891 Personal history of nicotine dependence
CPT/HCPCS: 36415; 80053; 81001; 82947; 83605; 83690; 85025; 94760; 99285; C9113; G0378; J0360; J1650; J2405; J2550; J2765; J7030; J7120

== ENCOUNTER 2023-12-30 10:34 | Emergency (ER) | payer OTHER ==
[2023-12-30] MEDS ORDERED: NA CHLORIDE 0.9% 1,000 ML ONE (11:34)
[2023-12-30] MEDS ORDERED: droPERidol 5 MG/2 ML VIAL ONE (11:34)
[2023-12-30] MEDS ORDERED: DIPHENHYDRAMINE 50 MG/ML VIAL ONE (11:34)
[2023-12-30] MEDS ORDERED: FAMOTIDINE 20 MG/2 ML VIAL IV ONE (11:34)
[2023-12-30 11:42] LABS: Absolute Basophils 0.1 K/uL (0-0.5); Absolute Lymphocytes (CBC) 2.3 K/uL (0.7-4.9); Absolute Monocytes 0.4 K/uL (0.1-1.3); Absolute Neutrophil 4.9 K/uL (1.8-8.0); Basophils % 0.9 % (0-1.3); Eosinophils % 0.4 % (0-4.4); Hematocrit 49.3 % (39.6-49.0); Hemoglobin 16.7 g/dL (13.6-17.9); Lymphocytes % 30.2 % (15.3-44.8); MCH 30.5 pg (27.0-35.0); MCHC 33.9 g/dL (32.0-36.0); MPV 8.4 fL (7.6-11.3); Monocytes % 5.2 % (3.3-12.3); Neutrophils % 63.3 % (41.7-73.7); Nucleated Red Blood Cells % 0.1 % (0-0); Platelets 294 thou/uL (152-406); RBC Red Blood Cell Count 5.47 M/uL (4.33-5.43); Red Cell Distribution Width 12.9 % (12.1-15.2)
[2023-12-30 12:00] LABS: Albumin 4.7 g/dL (3.4-5.0); Albumin/Globulin Ratio 0.9 (1.1-1.8); Anion Gap 13.4 mEq/L (5.0-15.0); Bilirubin Total 0.8 mg/dL (0.2-1.0); Protein, Total 9.7 g/dL (6.4-8.2)
[2023-12-30 12:01] LABS: Potassium 3.4 mEq/L (3.5-5.1)
--- NOTE | 2023-12-30 13:48 | RAD REPORT ---
EXAMINATION: CT ABDOMEN AND PELVIS WITH CONTRAST CLINICAL INDICATION: Male, 33 years old. [facility] MAIN ABD PAIN IV ONLY Bed Name: 16 TECHNIQUE: CT abdomen and pelvis was performed, after the administration of IV contrast, as per [facility] protocol. Axial, sagittal and coronal reconstructions were obtained. One or more of the following dose reduction techniques were used: Automated exposure control, adjustment of the mA and k V according to patient size, and iterative reconstruction. Unless otherwise specified, incidental findings do not require dedicated imaging follow-up. COMPARISON: No prior exam. FINDINGS: LOWER CHEST: The visualized lung bases are clear. LIVER: Normal in size and contour. Small region of geographic hypoattenuation anteriorly adjacent to the falciform fissure suggesting focal fatty infiltration. No suspicious focal lesion. BILIARY SYSTEM: No suspicious abnormalities. SPLEEN: Normal size. No focal lesion. PANCREAS: No mass, ductal dilation, or donta-pancreatic fluid. ADRENALS: Normal; no mass. KIDNEYS: Normal size and contour. No hydronephrosis. URINARY BLADDER: Unremarkable. GASTROINTESTINAL TRACT: No evidence of free air, significant intra-abdominal free fluid, bowel obstru ction or abscess. APPENDIX: Normal appendix. LYMPH NODES: No lymphadenopathy. MUSCULOSKELETAL: No acute or suspicious osseous abnormality. ADDITIONAL FINDINGS: None. IMPRESSION: No acute or concerning abnormalities seen in the abdomen or pelvis.
--- NOTE | 2023-12-30 14:19 | EDPHYS ---
Physician Documentation [facility] Name: Cecile Miarnda Jr Age: 33 yrs Sex: Male : 1990 Arrival Date: 12/30/2023 Time: 10:34 Bed 16 Private MD: ED Physician Ziyad Anthony HPI: 12/29 11:13 This 33 yrs old Black Male presents to ER via Unassigned with complaints of ec2 Nausea/Vomiting, General Weakness. 11:13 Patient arrives today for evaluation of abdominal pain along with nausea and vomiting. ec2 Patient reports he been having issues for the past several weeks. Patient reports history of gastroparesis, diabetes. Patient reports he has been hospitalized in the past for his gastroparesis. Patient reports no previous abdominal surgeries. Reports decreased p.o. intake. Recent cough and cold symptoms as well.. Historical: - Allergies: 11:13 No Known Allergies; db - PMHx: 11:13 diabetes mellitus; h. pylori; ULCER; db - Immunization history:: Adult Immunizations unknown. - Infectious Disease History:: Denies. - Social history:: Smoking status: Patient/guardian denies using tobacco, Stopped _ months ago .5. ROS: 11:13 Constitutional: as per hpi ec2 Exam: 11:13 Constitutional: GEN: NAD Head: atraumatic Eyes: EOMI Ears: External ears are ec2 normal. CV: regular rate LUNGS: no respiratory distress ABD: non-distended SKIN: no evidence of rashes MSK: no evidence of trauma Vital Signs: 11:11 BP 133 / 95; Pulse 94; Resp 16; Temp 99.2(O); Pulse Ox 100% ; Weight 86.18 kg; Height 5 db ft. 8 in. ; Pain 8/10; 12:07 BP 127 / 98; Pulse 94; Resp 16; Pulse Ox 100% on R/A; iw 11:11 Body Mass Index 28.89 (86.18 kg, 172.72 cm) db 11:11 Pain Scale: Adult db MDM: 11:13 Patient medically screened. ec2 11:13 Data reviewed: vital signs. ED course: Patient arrives today for evaluation of ec2 abdominal pain along with nausea and vomiting. Examination remarkable for well-appearing nontoxic individuals otherwise in no acute distress with reassuring blood pressure. Will obtain lab work, CT imaging.. 12:06 ED course: Metabolic profile shows slight hyponatremia with a sodium of 127, slight ec2 hypokalemia of 3.4, renal dysfunction with a creatinine of 1.52 and GFR of 62. Lipase within normal ranges, CBC nonactionable . 13:54 ED course: CT abdomen pelvis shows no acute process. . ec2 14:18 ED course: On reassessment patient is well-appearing, tolerating p.o. I discussed ec2 possible inpatient hospitalization versus outpatient management and patient comfortable with return to home. Will discharge home. Return precautions given.. 12/29 11:13 Order name: CBC with Diff; Complete Time: 11:56 ec2 12/29 11:13 Order name: CMP; Complete Time: 12:06 ec2 12/29 11:13 Order name: Lipase; Complete Time: 12:06 ec2 12/29 11:13 Order name: CT Abd/Pelvis - IV Contrast Only; Complete Time: 13:54 ec2 12/29 11:13 Order name: IV Saline Lock; Complete Time: 11:31 ec2 12/29 11:13 Order name: Labs collected and sent; Complete Time: 11:31 ec2 Administered Medications: 11:52 Drug: Droperidol IVP 2.5 mg IVP once Route: IVP; Site: right forearm; iw 11:53 Drug: NS 0.9% IV 1000 ml IV at 1 bolus Per protocol; 1000 mL bolus Route: IV; Rate: 1 iw bolus; Site: right forearm; 11:53 Drug: Famotidine IVP 20 mg IVP once; dilute with 10 mL 0.9% NaCl; give over 2 minutes iw Route: IVP; Site: right forearm; 11:53 Drug: diphenhydrAMINE IVP 50 mg IVP once Route: IVP; Site: right forearm; iw Disposition Summary: 12/30/23 14:19 Discharge Ordered Notes: Location: Home ec2 Condition: Stable ec2 Diagnosis - Gastroparesis ec2 - Hypo-osmolality and hyponatremia ec2 - Hypokalemia ec2 Followup: ec2 - With: Private Physician - When: - Reason: Re-evaluation by your physician Discharge Instructions: - Discharge Summary Sheet ec2 - Gastroparesis ec2 Forms: - Work release form iw - Medication Reconciliation Form ec2 - Antibiotic Education ec2 - Prescription Opioid Use ec2 - Patient Portal Instructions ec2 - Leadership Thank You Letter ec2 Prescriptions: - promethazine 25 mg Oral tablet - take 1 tablet ORAL route every 6 hours As needed; 10 tablet; Refills: 0, ec2 Product Selection Permitted Signatures: Dispatcher [employer] Marybeth Carlson, SALMA MARSH iw Elaine Rock RN RN db Corral, Edwin, MD MD ec2 Corrections: (The following items were deleted from the chart) 11:14 11:14 CBC+H.LAB.BRZ ordered. EDMS EDMS 11:14 11:14 COMPREHENSIVE METABOLIC PANEL+C.LAB.BRZ ordered. EDMS EDMS 11:14 11:14 LIPASE+C.LAB.BRZ ordered. EDMS EDMS 11:14 11:14 Abdomen Pelvis W Con+CT.RAD.BRZ ordered. EDMS EDMS
--- NOTE | 2023-12-30 14:19 | ER ---
Nurse's Notes [facility] Name: Cecile Miranda Jr Age: 33 yrs Sex: Male : 1990 Arrival Date: 12/30/2023 Time: 10:34 Bed 16 Private MD: Diagnosis: Gastroparesis;Hypo-osmolality and hyponatremia;Hypokalemia Presentation: 12/29 11:11 Chief complaint: Patient states: N/V WEAKNESS X 2 WEEKS. HEADACHE THAT COMES AND GOES. db Coronavirus screen: Client denies travel out of the [place] in the last 14 days. At this time, the client does not indicate any symptoms associated with coronavirus-19. Ebola Screen: Patient negative for fever greater than or equal to 101.5 degrees Fahrenheit, and additional compatible Ebola Virus Disease symptoms Patient denies exposure to infectious person. Patient denies travel to an Ebola-affected area in the 21 days before illness onset. No symptoms or risks identified at this time. Initial Sepsis Screen: Does the patient meet any 2 criteria? Yes Does the patient have a suspected source of infection? No. Patient's initial sepsis screen is negative. Risk Assessment: Do you want to hurt yourself or someone else? Patient reports no desire to harm self or others. Onset of symptoms was December 30, 2023. Care prior to arrival: Glucose check: 228. 11:11 Method Of Arrival: Ambulatory db 11:11 Acuity: CARLOS 3 db Triage Assessment: 11:13 General: Appears in no apparent distress. comfortable, Behavior is calm, cooperative. db Pain:. Pain: Complains of pain in abdomen Pain currently is 8 out of 10 on a pain scale. Neuro: Level of Consciousness is awake, alert, obeys commands, Oriented to person, place, time, situation. GI: Reports lower abdominal pain, nausea, vomiting. Historical: - Allergies: 11:13 No Known Allergies; db - PMHx: 11:13 diabetes mellitus; h. pylori; ULCER; db - Immunization history:: Adult Immunizations unknown. - Infectious Disease History:: Denies. - Social history:: Smoking status: Patient/guardian denies using tobacco, Stopped _ months ago .5. Screenin:58 [facility] ED Fall Risk Assessment (Adult) History of falling in the last 3 months, iw including since admission No falls in past 3 months (0 pts) Confusion or Disorientation No (0 pts) Intoxicated or Sedated No (0 pts) Impaired Gait No (0 pts) Mobility Assist Device Used No (0 pt) Altered Elimination No (0 pt) Score/Fall Risk Level 0 - 2 = Low Risk Oriented to surroundings, Maintained a safe environment. Abuse screen: Denies threats or abuse. Denies injuries from another. Nutritional screening: No deficits noted. Tuberculosis screening: No symptoms or risk factors identified. Assessment: 11:56 Reassessment: pt has been medicated per JUN, lights dimmed, warmed blankets given, pt iw on monitor. Vital Signs: 11:11 BP 133 / 95; Pulse 94; Resp 16; Temp 99.2(O); Pulse Ox 100% ; Weight 86.18 kg; Height 5 db ft. 8 in. ; Pain 8/10; 12:07 BP 127 / 98; Pulse 94; Resp 16; Pulse Ox 100% on R/A; iw 11:11 Body Mass Index 28.89 (86.18 kg, 172.72 cm) db 11:11 Pain Scale: Adult db ED Course: 10:36 Patient arrived in ED. im 10:41 Ziyad Anthony MD is Attending Physician. ec2 11:10 Marybeth Castillo, SALMA is Primary Nurse. iw 11:13 Triage completed. db 11:14 Arm band placed on left wrist. Patient placed in an exam room. db 11:25 Initial lab(s) drawn, by me, sent to lab. Inserted saline lock: 22 gauge in right iw forearm, using aseptic technique. Blood collected. Flushed with 10 mL NS. 12:24 CT Abd/Pelvis - IV Contrast Only In Process Unspecified. EDMS Administered Medications: 11:52 Drug: Droperidol IVP 2.5 mg IVP once Route: IVP; Site: right forearm; iw 11:53 Drug: NS 0.9% IV 1000 ml IV at 1 bolus Per protocol; 1000 mL bolus Route: IV; Rate: 1 iw bolus; Site: right forearm; 11:53 Drug: Famotidine IVP 20 mg IVP once; dilute with 10 mL 0.9% NaCl; give over 2 minutes iw Route: IVP; Site: right forearm; 11:53 Drug: diphenhydrAMINE IVP 50 mg IVP once Route: IVP; Site: right forearm; iw Outcome: 14:19 Discharge ordered by . ec2 14:33 Patient left the ED. iw Signatures: Dispatcher [employer] Marybeth Carlson RN RN iw Benton, Danielle, RN RN db Mendoza, Itzel im Corral, Edwin, MD MD ec2 Corrections: (The following items were deleted from the chart) 11:58 11:00 Inserted saline lock: 22 gauge in right forearm, using aseptic technique. Blood iw collected. Flushed with 10 mL NS iw 11:58 11:00 Initial lab(s) drawn, by me, sent to lab. iw iw
[2023-12-30 14:54] VITALS: TEMP 99.2; O2SAT 100
[2023-12-30 14:56] VITALS: BP 127/98
== END 2023-12-30 14:33 | disposition home or self-care (01) ==
LOC: ER 10:34
DX: K31.84 Gastroparesis (principal); E87.1 Hypo-osmolality and hyponatremia; E87.6 Hypokalemia
CPT/HCPCS: 85025; 36415; 83690; 80053; 74177; Q9967; 96374; 96375; 99284; J1200; J1790; J7030